=== PATIENT | female | born 1965 | race Caucasian/White ===

== ENCOUNTER → 2020-09-16 09:17 | Outpatient (BNVA) | payer OTHER, SELFPAY | PROVIDERS: PCP Family Medicine; Visit Provider Surgery | DX: K21.9 Gastro-esophageal reflux disease without esophagitis (principal); E66.9 Obesity, unspecified; Z68.34 Body mass index [BMI] 34.0-34.9, adult | CPT/HCPCS: 99212 ==

== ENCOUNTER → 2020-10-14 08:05 | Outpatient (BNVA) | payer OTHER, SELFPAY | PROVIDERS: PCP Family Medicine; Visit Provider Surgery ==

== ENCOUNTER 2023-07-18 12:35 | Outpatient (AMB) | payer OTHER, SELFPAY ==
--- NOTE | 2023-07-18 12:39 | MHC.OFFVISWM ---
Intake VS Expanded 07/18/23 12:48 BP 106/61 Blood Pressure Location Rt brachial Blood Pressure Position Sitting Pulse 96 Pulse Source Pulse Oximeter Temp 96.7 F L Temperature Source Tympanic Pulse Oximetry 96 Oxygen Delivery Method Room Air Height 5 ft 5 in Weight 206 lb 12.8 oz BMI 34.4 Body Fat % 45.1 Body Fat Mass 95.1 Fat Free Mass 113.6 Visceral Fat Rating 12.0 Body Water % 38.9 Body Water Mass 80.4 Muscle Mass/Score 107.8 Basal Metabolic Rate/Score 1,588 Intake Visit Reasons: (OV) S/P LRYGB 11/24/16 Allergies bupropion [BUPROPION] Allergy (Unknown, Verified 07/18/23 12:39) UNKNOWN ibuprofen Allergy (Unknown, Verified 07/18/23 12:39) Stomach pain NSAIDS (Non-Steroidal Anti-Inflamma [NSAIDS (NON-STEROIDAL ANTI-INFLAMMA] Allergy (Unknown, Verified 07/18/23 12:39) GI UPSET BuPROPion HCl Allergy (Unknown, Uncoded 07/18/23 12:39) Unknown Pt states no known allergy to Allergy (Unknown, Uncoded 07/18/23 12:39) Unknown Medication List - Last Reconciled 07/18/23 by TRES Acosta albuterol sulfate 90 mcg/actuation (ProAir HFA) 2 puffs inhalation Q6H PRN aripiprazole 10 mg PO BEDTIME clonidine 1 patch transdermal QWEEK duloxetine 60 mg PO DAILY esomeprazole magnesium 40 mg PO DAILY fluticasone furoate 50 mcg/actuation inhalation gabapentin 300 mg PO BEDTIME hydroxyzine HCl 25 mg PO BID PRN montelukast (Singulair) 10 mg PO BEDTIME hqkkmhubcpkv-bvi-ugfj-FA-vit K 45 mg iron- 800 mcg-120 mcg (Bariatric Multivitamins) caps PO sucralfate (Carafate) 1 g PO QIDACHS HPI HPI Comments History of Present Illness Details This?is a?57?yo female who is s/p LSG 11/24/2016. Presents for 6 year 7 month post op visit. Weight at last visit on 10/14/2020 was 201.5 pounds with a BMI of 33.5, weight today is 206.8 pounds, representing a 5.3 pound weight gain with a BMI today of 34.4.? No complaints of nausea, emesis, abdominal pain or reflux, or constipation. Pt reports she is unable to eat past 6pm or will throw up. Gets low blood sugars, no history of diabetes. 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 Present meal plan includes: not following a meal plan Exercise routine includes: none, has chronic knee pain, needs surgery [facility] Medical History (Updated 10/14/20 @ 10:46 by Morgan Weston MD) GERD (gastroesophageal reflux disease) History of herniated intervertebral disc Surgical History Obesity History of abdominoplasty History of bypass gastroenterostomy History of removal of laparoscopic gastric banding device History of knee surgery History of laparoscopic appendectomy History of bilateral tubal ligation Hx of laparoscopic gastric banding History of bilateral breast reduction surgery Family History Father Stroke Mother Dementia Alzheimer disease Cancer Sister Dementia Asthma Epilepsia Sister Lupus Sister Cancer Sister No problems noted. Sister Acute rheumatic arthritis Fibromyalgia Brother No problems noted. Brother Back problem Hypertension Acute depression Social History Alcohol intake: never Physical Exam Vital Signs: Last Vital Signs Temp 96.7 F L 07/18/23 12:48 Pulse 96 07/18/23 12:48 BP 106/61 07/18/23 12:48 Pulse Ox 96 07/18/23 12:48 Oxygen Delivery Method Room Air 07/18/23 12:48 BMI result Body Mass Index 34.4 Assessment & Plan Assessment & Plan (1) History of sleeve gastrectomy: Code(s): Z90.3 - Acquired absence of stomach [part of] (2) Obesity: Code(s): E66.9 - Obesity, unspecified Plan New meal plan: 7-9am Pure protein shake, 1 scoop in 8oz unsweetened vanilla sandra milk 11am lunch- 4 forks protein, 4 forks salad/veg 13pm Pure Protein bar 4-6pm another shake Gave exercise handout, encouraged Sit and be Fit videos Labs ordered, encouraged pt to restart stef MVI. Meal plan texted to pt and encouraged her to reach out with any questions. RTC 4-6 weeks. Patient is obese and is not considered stable at this time. I spent a total of 30 minutes reviewing/updating records, examining the patient and counseling the patient on weight management as detailed above. Orders: Orders Insulin Today Z90.3 - Acquired absence of stomach [part of] Lipid Panel Today Z90.3 - Acquired absence of stomach [part of] Complete Blood Count Auto Diff Today Z90.3 - Acquired absence of stomach [part of] Comprehensive Met. Panel Today Z90.3 - Acquired absence of stomach [part of] Vitamin A Today Z90.3 - Acquired absence of stomach [part of] C Reactive Protein Today Z90.3 - Acquired absence of stomach [part of] Ferritin Today Z90.3 - Acquired absence of stomach [part of] PTHI Today Z90.3 - Acquired absence of stomach [part of] TSH reflex Free T4 Today Z90.3 - Acquired absence of stomach [part of] Hemoglobin A1c Today Z90.3 - Acquired absence of stomach [part of] IRON PROFILE Today Z90.3 - Acquired absence of stomach [part of] Vitamin B12 and Folate Today Z90.3 - Acquired absence of stomach [part of] Zinc Today Z90.3 - Acquired absence of stomach [part of] Vitamin B1 Today Z90.3 - Acquired absence of stomach [part of] Vitamin D 25-OH Total Today Z90.3 - Acquired absence of stomach [part of] Medications: New sucralfate (Carafate) 1 g PO QIDACHS 30 tabs 3RF Coding Level of Care Code Est Pt Level 4 (35642) Diagnoses History of sleeve gastrectomy Z90.3 Obesity E66.9
[2023-07-18 12:48] VITALS: BP 106/61; PULSE 96; TEMP 35.9; O2SAT 96; BMI 34.4
== END 2023-07-18 13:30 | disposition home or self-care (01) ==
PROVIDERS: PCP Family Medicine; Visit Provider Physician Assistant Surgical
DX: E66.9 Obesity, unspecified (principal); Z68.34 Body mass index [BMI] 34.0-34.9, adult; Z90.3 Acquired absence of stomach [part of]; Z98.84 Bariatric surgery status
CPT/HCPCS: 99214

== ENCOUNTER → 2023-07-18 12:35 | Outpatient (BNVA) | payer OTHER, SELFPAY | PROVIDERS: PCP Family Medicine; Visit Provider Physician Assistant Surgical | DX: E66.9 Obesity, unspecified (principal); K21.9 Gastro-esophageal reflux disease without esophagitis; Z68.34 Body mass index [BMI] 34.0-34.9, adult; Z90.3 Acquired absence of stomach [part of] | CPT/HCPCS: 99212 ==

== ENCOUNTER 2023-10-03 12:55 | Outpatient (AMB) | payer OTHER, SELFPAY ==
--- NOTE | 2023-10-03 12:22 | MHC.OFFVISWM ---
Intake VS Expanded 10/03/23 12:38 Height 5 ft 5 in Weight 204 lb BMI 33.9 Intake Visit Reasons: VIDEO S/P LRYGB Allergies bupropion [BUPROPION] Allergy (Unknown, Verified 07/18/23 12:39) UNKNOWN ibuprofen Allergy (Unknown, Verified 07/18/23 12:39) Stomach pain NSAIDS (Non-Steroidal Anti-Inflamma [NSAIDS (NON-STEROIDAL ANTI-INFLAMMA] Allergy (Unknown, Verified 07/18/23 12:39) GI UPSET BuPROPion HCl Allergy (Unknown, Uncoded 07/18/23 12:39) Unknown Pt states no known allergy to Allergy (Unknown, Uncoded 07/18/23 12:39) Unknown Medication List - Last Reconciled 10/03/23 by TRES Acosta albuterol sulfate 90 mcg/actuation (ProAir HFA) 2 puffs inhalation Q6H PRN aripiprazole 10 mg PO BEDTIME clonidine 1 patch transdermal QWEEK duloxetine 60 mg PO DAILY esomeprazole magnesium 40 mg PO DAILY fluticasone furoate 50 mcg/actuation inhalation gabapentin 300 mg PO BEDTIME hydroxyzine HCl 25 mg PO BID PRN montelukast (Singulair) 10 mg PO BEDTIME acjeljznzdkb-vbd-dqkq-FA-vit K 45 mg iron- 800 mcg-120 mcg (Bariatric Multivitamins) caps PO sucralfate (Carafate) 1 g PO QIDACHS HPI HPI Comments History of Present Illness Details This?is a?57?yo female who is s/p RYGB 11/24/2016. Presents for 7 year post op visit. Weight at last visit on 07/18/2023 was 206.8 pounds with a BMI of 34.4, weight today is 204 pounds, representing a 2.6 pound weight loss with a BMI today of 33.9.? No complaints of nausea, emesis, abdominal pain or reflux, or constipation. Still having some vomiting with solid foods like pizza. Does fine with liquids and softer foods like yogurt and eggs. Had pelvic floor surgery recently for bladder and rectum. Present meal plan includes: 7-9am Pure protein shake, 1 scoop in 8oz unsweetened vanilla sandra milk 11am lunch- 4 forks protein, 4 forks salad/veg 1-3pm Pure Protein bar 4-6pm another shake Exercise: encouraged Sit and be Fit videos at last visit, did not get a chance to try those videos recently had an exacerbation of asthma [facility] Medical History (Updated 10/03/23 @ 12:52 by TRES Acosta) GERD (gastroesophageal reflux disease) History of herniated intervertebral disc Surgical History Obesity History of abdominoplasty History of bypass gastroenterostomy History of removal of laparoscopic gastric banding device History of knee surgery History of laparoscopic appendectomy History of bilateral tubal ligation Hx of laparoscopic gastric banding History of bilateral breast reduction surgery Family History Father Stroke Mother Dementia Alzheimer disease Cancer Sister Dementia Asthma Epilepsia Sister Lupus Sister Cancer Sister No problems noted. Sister Acute rheumatic arthritis Fibromyalgia Brother No problems noted. Brother Back problem Hypertension Acute depression Social History Alcohol intake: never Assessment & Plan Assessment & Plan (1) History of Shira-en-Y gastric bypass: Code(s): Z98.84 - Bariatric surgery status (2) Vomiting: Code(s): R11.10 - Vomiting, unspecified (3) Obesity: Code(s): E66.9 - Obesity, unspecified Plan Encouraged pt to eat solid proteins that are soft and less likely to trigger vomiting- yogurt, eggs, soft moist meats. It is possible that her vomiting is solely related to food choices and behaviors like eating too quickly or not chewing thoroughly but will order UGI to rule out underlying pathology. Reminded pt to have labs drawn. RTC once UGI completed. Patient is obese and is not considered stable at this time. I spent a total of 30 minutes reviewing/updating records, examining the patient and counseling the patient on weight management as detailed above. Orders: Orders FL upper GI w air Today R11.10 - Vomiting, unspecified, Z98.84 - Bariatric surgery status Telehealth Telehealth Location of provider rendering services: practice address Location of patient: address on file Patient Identification confirmed using: Name, : Yes Telehealth method: voice only Patient verbally consented to treatment: Yes Patient verbally consented to billing insurance company: Yes Patient informed of any privacy concerns related to visit: Yes Minutes spent on Phone/Video with Pt.: 14 Coding Level of Care Code Tele Est Pt Level 4 (18868) Diagnoses History of Shira-en-Y gastric bypass Z98.84 Vomiting R11.10 Obesity E66.9
[2023-10-03 12:38] VITALS: BMI 33.9
== END 2023-10-03 12:56 | disposition home or self-care (01) ==
LOC: HO.HBS 12:55
PROVIDERS: PCP Family Medicine; Visit Provider Physician Assistant Surgical
DX: E66.9 Obesity, unspecified (principal); Z68.33 Body mass index [BMI] 33.0-33.9, adult; Z98.84 Bariatric surgery status; R11.10 Vomiting, unspecified
CPT/HCPCS: 99214

== ENCOUNTER → 2023-10-03 12:55 | Outpatient (BNVA) | payer OTHER, SELFPAY | PROVIDERS: PCP Family Medicine; Visit Provider Physician Assistant Surgical | DX: Z98.84 Bariatric surgery status (principal); R11.10 Vomiting, unspecified; E66.9 Obesity, unspecified ==

== ENCOUNTER 2024-08-10 10:06 | Emergency (ER) | payer OTHER, SELFPAY ==
[2024-08-10] VITALS (7 sets, daily range): BP systolic 103–122; BP diastolic 51–77; PULSE 59–83; RESP 15–16; TEMP 36.2–36.6; O2SAT 96–98; BMI 40.2
--- NOTE | ~2024-08-10 | CT_ITS ---
EXAMINATION: CT HEAD WITHOUT CONTRAST CLINICAL INFORMATION: Dizziness. Anticoagulated. COMPARISON: None available. TECHNIQUE: Contiguous axial imaging was performed from the skull base to vertex without intravenous administration of contrast. This CT examination was performed using dose optimization techniques as appropriate, variously including the following: *Automated exposure control *Adjustment of mA and/or kV according to patient size (this includes techniques or standardized protocols for targeted exams where dose is matched to indication/reason for exam; i.e. extremities or head) *Use of iterative reconstruction technique DLP: 565 mGy-cm FINDINGS: No acute intracranial hemorrhage. No mass effect or midline shift. No parenchymal lesion. The adler-white differentiation is maintained. No extra-axial fluid collection. The ventricles and sulci are unremarkable. The basal cisterns are patent. The calvarium is intact. The visualized paranasal sinuses and mastoid air cells are clear. CT/CT head/brain wo IV con IMPRESSION: No acute intracranial hemorrhage or mass effect. Electronically signed by: Daren Saldaña MD 08/10/2024 03:50 PM [facility]
--- NOTE | ~2024-08-10 | XR_ITS ---
EXAMINATION: XR CHEST CLINICAL INFORMATION: [Pleuritic pain. COMPARISON: Prior chest radiographs, most recently 09/30/2018. TECHNIQUE: Frontal view of the chest was obtained. FINDINGS: No significant abnormality is noted involving the heart, lungs, mediastinum, bony thorax or soft tissues. Lung volumes are mildly diminished, there is mild elevation the right hemidiaphragm. XR/XR chest 1V IMPRESSION: Lung volumes are mildly diminished. There is no infiltrate or congestive heart failure. Electronically signed by: Balwinder Su MD 08/10/2024 02:28 PM [facility]
--- NOTE | ~2024-08-10 | CT_ITS ---
EXAMINATION: CT ANGIOGRAM OF THE CHEST WITH AND WITHOUT CONTRAST (CT PULMONARY ANGIOGRAM FOR PE) CLINICAL INFORMATION: prior PE L pleuritic chest pain, elevated ddimer COMPARISON: No pertinent prior studies are available for comparison. TECHNIQUE: Prior to contrast administration, noncontrast localization images were obtained. Subsequently, multidetector volumetric imaging was performed from the thoracic inlet to below the diaphragms following the administration of 65 mL Omnipaque 350 intravenous contrast. No contrast reaction reported. Sagittal, coronal, and MIP oblique sagittal reformatted images were obtained on the CT workstation, uploaded to PACS, and reviewed. Total exam dose-length product 398 mGy-cm FINDINGS: QUALITY OF STUDY/CONTRAST BOLUS: Satisfactory. PULMONARY ARTERIES: No central or segmental pulmonary emboli. THORACIC AORTA: No aneurysm or dissection. LUNG: Hypoinspiratory exam. Patchy opacities in the right base. PLEURA: No pleural effusion or pneumothorax. MEDIASTINUM: Normal heart size. No pericardial effusion. No hilar or mediastinal lymphadenopathy. No evidence of septal bowing or right heart strain. CHEST WALL/AXILLA: No axillary or internal mammary lymphadenopathy. OSSEOUS STRUCTURES: No acute or suspicious osseous abnormality. UPPER ABDOMEN: Unremarkable. No reflux of contrast into the hepatic veins to suggest elevated right heart pressures. CT/CT angio chest PE protocol IMPRESSION: 1. No central or segmental pulmonary emboli. 2. Patchy opacities in the right base may represent atelectasis or developing consolidation. VTE: negative. Electronically signed by: Melchor Houston MD 08/10/2024 04:11 PM [facility]
--- NOTE | 2024-08-10 10:20 | ECG_ITS ---
Test Reason : DIZZINESS Blood Pressure : / mmHG Vent. Rate : 071 BPM Atrial Rate : 071 BPM P-R Int : 174 ms QRS Dur : 132 ms QT Int : 408 ms P-R-T Axes : 004 -07 010 degrees QTc Int : 443 ms Normal sinus rhythm Right bundle branch block Minimal voltage criteria for LVH, may be normal variant ( R in aVL ) Abnormal ECG No previous ECGs available Referred By: Generic ED Physician Electronically Signed By:Herbert Perrin
[2024-08-10 10:51] LABS: Basophils Percent Auto 0.1 % (0-2); Hematocrit 41.3 % (37.0-47.0); Hemoglobin 13.3 g/dl (12.0-16.0); Imm Gran Abs Auto 0.06 X10*3/uL (0.00-0.03); Imm Gran Pct Auto 0.5 % (0.0-0.4); Lymphocytes Absolute Auto 0.3 X10*3/uL (1.2-4.9); Lymphocytes Percent Auto 2.8 % (20-40); MANUAL DIFF FLAG SCAN; Mean Corpuscular HGB Conc 32.2 g/dl (31.0-35.0); Mean Corpuscular Volume 96.3 fL (80.0-98.0); Mean Platelet Volume 10.5 fL (9.4-12.3); Monocytes Absolute Auto 0.1 X10*3/uL (0.1-1.2); Neutrophils Absolute Auto 10.8 x10*3/uL (2.0-8.3); Neutrophils Percent Auto 95.6 % (45-73); Platelet Count 279 X10*3/uL (160-400); Red Blood Count 4.29 X10*6/uL (4.20-5.50); Red Cell Distribution Width 13.2 % (11.0-16.0); SCAN SMEAR FLAG 1; White Blood Count 11.3 X10*3/uL (4.8-10.8)
[2024-08-10 11:14] LABS: SLIDE REVIEW VERIFIED
[2024-08-10 11:20] LABS: Troponin-I High Sensitivity < 2.7 ng/L (<3.5-17.0)
[2024-08-10 11:22] LABS: Anion Gap 15 (12-20); Blood Urea Nitrogen 18 mg/dL (9-16); Calcium 9.8 mg/dL (8.4-10.2); Carbon Dioxide 19 mmol/L (22-29); Chloride 107 mmol/L (96-108); Creatinine Clr Calc Pharmacy 74.7; Estimated Glomerular Filt Rate 56; Glucose Random 444 mg/dL (60-115); Potassium 3.9 mmol/L (3.3-5.1); Sodium 137 mmol/L (135-145)
[2024-08-10 12:42] LABS: Venous Blood Gas Refer to POC result
[2024-08-10 12:42] LABS: VBG Base Excess -6.8 mmol/L; VBG HCO3 19 mmol/L (22-26); VBG pCO2 38 mmHg; VBG pH 7.29 (7.32-7.43); VBG pO2 45 mmHg
[2024-08-10 13:02] LABS: Alanine Aminotransferase 35 U/L (0-31); Albumin Level 3.9 g/dL (3.5-5.0); Alkaline Phosphatase 95 U/L (39-117); Aspartate Amino Transferase 23 U/L (5-31); Bilirubin Direct < 0.2 mg/dL (0.0-0.5); Bilirubin Total 0.2 mg/dL (0.0-1.0); Total Protein 7.5 g/dL (6.5-8.0)
[2024-08-10 13:11] LABS: Beta-Hydroxybutyrate 0.08 mmol/L (0.02-0.27)
--- NOTE | 2024-08-10 13:51 | ED_ITS ---
HPI - Dizziness General Chief Complaint: Dizziness Stated Complaint: dizzy, lightheaded, hurts to breath Time Seen by Provider: 08/10/24 13:46 Source: patient Mode of arrival: ambulatory Limitations: no limitations History of Present Illness ED Provider: CHARLES HPI Narrative: 58 yo female with PMH of obesity, GERD, sleeve gastrectomy, PE on eliquis, notes since her Mom in January she has gained all of her weight back. Patient notes 3 days of headaches and feeling dizzy worse with movements. She also feels L rib pain when she breathes but has not missed any eliquis. She denies head trauma or URI symptoms. Since her mom she always had dry mouth. She denies any numbness, weakness, vision changes. She states this has never happened. MD elicited complaint: dizziness Onset (ago): day(s) (3) Timing: gradual onset and intermittent Severity: mild Description: lightheadedness Context: change in body position History of similar symptoms: No Exacerbating factors: movement/ambulation and change in body position Relieving factors: remaining still Associated symptoms: nausea and other (dizziness) Related Data Home Medications ?Medication ?Instructions ?Recorded ?Confirmed albuterol sulfate 90 mcg/actuation 2 puff inhalation Q6H PRN 09/16/20 10/03/23 aerosol inhaler (ProAir HFA) aripiprazole 10 mg tablet 10 mg PO BEDTIME 09/16/20 10/03/23 clonidine 0.1 mg/24 hr weekly 1 patch transdermal QWEEK 09/16/20 10/03/23 transdermal patch duloxetine 60 mg capsule,delayed 60 mg PO DAILY 09/16/20 10/03/23 release fluticasone furoate 50 inhalation 09/16/20 10/03/23 mcg/actuation blister powder for inhalation gabapentin 300 mg capsule 300 mg PO BEDTIME 09/16/20 10/03/23 hydroxyzine HCl 25 mg tablet 25 mg PO BID PRN 09/16/20 10/03/23 montelukast 10 mg tablet 10 mg PO BEDTIME 09/16/20 10/03/23 (Singulair) [id number]-[id number] 45 mg-folic cap PO 09/16/20 10/03/23 acid 800 mcg-vit K 120 mcg capsule (Bariatric Multivitamins) esomeprazole magnesium 40 mg 40 mg PO DAILY 07/18/23 10/03/23 capsule,delayed release Previous Rx's ?Medication ?Instructions ?Recorded sucralfate 1 gram tablet (Carafate) 1 g PO QIDACHS #30 tabs 07/18/23 azithromycin 250 mg tablet See Rx Instructions PO .COMPLEX #6 08/10/24 tabs cefuroxime axetil 500 mg tablet 500 mg PO BID 7 days #14 tabs 08/10/24 Allergies Allergy/AdvReac Type Severity Reaction Status Date / Time bupropion [BUPROPION] Allergy Unknown UNKNOWN Verified 08/10/24 10:18 ibuprofen Allergy Unknown Stomach Verified 08/10/24 10:18 pain NSAIDS (Non-Steroidal Allergy Unknown GI UPSET Verified 08/10/24 10:18 Anti-Inflamma [NSAIDS (NON-STEROIDAL ANTI-INFLAMMA] BuPROPion HCl Allergy Unknown Unknown Uncoded 07/18/23 12:39 Review of Systems 2 Review of Systems: Constitutional : No Fever, No Chills, No Fatigue ENT/Mouth : No sore throat, No Rhinorrhea Eyes: No Eye Pain, No Swelling, No Redness Cardiovascular : No Chest Pain, No SOB, No Dyspnea on Exertion, pos flank pain Respiratory : No Cough, No Sputum Gastrointestinal : No Nausea, No Vomiting, No Diarrhea, No abdominal Pain Genitourinary : No Dysuria, No Urinary Frequency, No Hematuria, Musculoskeletal : No joint pain, No Myalgias, No Joint Swelling Skin : No Skin Lesions, No rash Neuro : No Weakness, No Numbness, pos Dizziness, positive Headache Psych : No Anxiety/Panic, No Depression Heme/Lymph: No Bruising, No Bleeding,No Lymphadenopathy Endocrine : No Polyuria, No Polydipsia All other systems reviewed and are negative [facility] Past Medical History Attestation statement: The following information was validated with the patient. Source: old records reviewed Medical History GERD (gastroesophageal reflux disease) History of herniated intervertebral disc Surgical History Obesity History of abdominoplasty History of bypass gastroenterostomy History of removal of laparoscopic gastric banding device History of knee surgery History of laparoscopic appendectomy History of bilateral tubal ligation Hx of laparoscopic gastric banding History of bilateral breast reduction surgery Family History Family History Father Stroke Mother Dementia Alzheimer disease Cancer Sister Dementia Asthma Epilepsia Sister Lupus Sister Cancer Sister No problems noted. Sister Acute rheumatic arthritis Fibromyalgia Brother No problems noted. Brother Back problem Hypertension Acute depression Social History Social History (Updated 08/10/24 @ 13:56 by Kaleigh Do DO) Alcohol intake: never Patient Tobacco Use Status: Never used Tobacco Smoked in Last 30 Days: No Use of substances other than those prescribed or required for medical reasons: No Advance Directives: No Advance Directives Information Provided: No Physical Exam 2 Vital Signs: Vital Signs: Last Vital Signs Temp 97.8 F 08/10/24 16:25 Pulse 60 08/10/24 16:25 Resp 15 08/10/24 16:25 BP 120/77 08/10/24 16:25 Pulse Ox 96 08/10/24 16:25 O2 Del Method Room Air 08/10/24 16:25 BMI result Body Mass Index 40.2 Appearance: Alert. Oriented X3. No acute distress. Eyes: Pupils equal, round and reactive to light. ENT: Pharynx normal. Neck: Normal inspection. Neck supple. CVS: Normal heart rate and rhythm. Pulses normal. Respiratory: No respiratory distress. Breath sounds normal. Abdomen: Soft and nontender. Skin: Skin warm and dry. Normal skin color. Normal skin turgor. Extremities: No lower extremity edema. No calf ttp Neuro: Oriented X 3. No motor deficit. No sensory deficit. no drift, no focal deficits, shaky when standing Course Course Course Narrative: not toxic appears well watching fast and furious and eating Reevaluation(s) Reevaluation #1: pH is normal HCO3 mildly low suspect dehydration no resp component possibly related to her prior sleeve at this time VS stable, eating and drinking negative gap and DKA, renal function normal Medications Administered Discontinued Medications Generic Name Dose Route Start Last Admin Trade Name Freq PRN Reason Stop Dose Admin Hydrocodone Bitart/Acetaminophen 1 tab 08/10/24 14:54 08/10/24 14:56 Hydrocodone Bit/Acetam 5/325 Tablet PO 08/10/24 14:55 1 tab ONCE ONE Administration Sodium Chloride 1,000 mls @ 999 mls/hr 08/10/24 14:03 08/10/24 14:19 Ns IV 08/10/24 15:03 999 mls/hr .Q1H1M ONE Administration Insulin Human Regular 5 unit 08/10/24 14:03 08/10/24 14:23 Insulin Regular, Human 100 Unit/Ml 10 Ml Vial IVPUSH 08/10/24 14:04 5 unit ONCE ONE Administration Iohexol 100 ml 08/10/24 15:30 08/10/24 15:30 Iohexol 350 Mg/Ml 100 Ml Infus..Btl IV 08/10/24 15:31 65 ml ONCE ONE Administration Meclizine HCl 25 mg 08/10/24 14:03 08/10/24 14:25 Meclizine Hcl 25 Mg Tablet PO 08/10/24 14:04 25 mg ONCE ONE Administration Medical Decision Making Medical Decision Making [facility] Narrative: 58 yo female with PMH of obesity, GERD, sleeve gastrectomy, PE on eliquis here with c/o headaches and dizziness also L pleuritic chest pain denies missing any eliquis. She has new hyperglycemia without prior - did gain back all of the weight she lost. She has mild metabolic acidosis suspect this is due to dehydration - at this time will obtain CT head for ICH has no focal deficits, repeat labs, ddimer, EKG possible anemia, dehydration, ICH, VTE Differential Diagnosis Differential Diagnoses: The differential diagnosis associated with the presentation includes anemia, dehydration, ICH, VTE Admission/Observation Consideration of admission/observation: Escalation of care including admission/observation considered on phone no issues some drop in BP with orthostatics no focal deficits she has dizziness but already on eliquis and no bleed - 3 weeks out no concern for falls 3 days of symptoms can follow up with PCP for further workup no further medications to add if she has stroke CTA no PE but small area of opacity will start on antibiotic Lab Data [facility] Lab Attestation statement: I reviewed the patient's lab results. 08/10/24 10:31 08/10/24 10:31 Labs: Lab Results 08/10/24 08/10/24 08/10/24 Range/Units 10:31 12:33 12:37 WBC 11.3 H (4.8-10.8) X10*3/uL RBC 4.29 (4.20-5.50) X10*6/uL Hgb 13.3 (12.0-16.0) g/dl Hct 41.3 (37.0-47.0) % MCV 96.3 (80.0-98.0) fL MCH 31.0 (27.0-33.0) pg MCHC 32.2 (31.0-35.0) g/dl RDW 13.2 (11.0-16.0) % Plt Count 279 (160-400) X10*3/uL MPV 10.5 (9.4-12.3) fL Immature Gran % (Auto) 0.5 H (0.0-0.4) % Neut % (Auto) 95.6 H (45-73) % Lymph % (Auto) 2.8 L (20-40) % [place] % (Auto) 1.0 L (2-11) % Eos % (Auto) 0.0 (0-4) % Baso % (Auto) 0.1 (0-2) % Lymph # (Auto) 0.3 L (1.2-4.9) X10*3/uL [place] # (Auto) 0.1 (0.1-1.2) X10*3/uL Eos # (Auto) 0.0 (0.0-0.4) X10*3/uL Baso # (Auto) 0.0 (0.0-0.2) X10*3/uL Abs Immat Gran (auto) 0.06 H (0.00-0.03) X10*3/uL Absolute Neuts (auto) 10.8 H (2.0-8.3) x10*3/uL Absolute Nucleated RBC 0.000 (0.0-0.012) X10*3/uL Nucleated RBC % (auto) 0.0 (0.0-0.2) /100WBC Smear Tech's Comments VERIFIED D-Dimer High Sensitivty NG/ML VBG pH 7.29 L (7.32-7.43) VBG pCO2 38 mmHg VBG pO2 45 mmHg VBG HCO3 19 L (22-26) mmol/L VBG O2 Saturation 67.0 % VBG Base Excess -6.8 mmol/L Sodium 137 (135-145) mmol/L Potassium 3.9 (3.3-5.1) mmol/L Chloride 107 (96-108) mmol/L Carbon Dioxide 19 L (22-29) mmol/L Anion Gap 15 (12-20) BUN 18 H (9-16) mg/dL Creatinine 1.01 (0.5-1.4) mg/dL Estim Creat Clear Calc 74.7 Estimated GFR 56 POC Glucose (60-115) mg/dL Random Glucose 444 H* (60-115) mg/dL Calcium 9.8 (8.4-10.2) mg/dL Total Bilirubin 0.2 (0.0-1.0) mg/dL Direct Bilirubin < 0.2 (0.0-0.5) mg/dL AST 23 (5-31) U/L ALT 35 H (0-31) U/L Alkaline Phosphatase 95 (39-117) U/L Troponin I High Sens < 2.7 (<3.5-17.0) ng/L Total Protein 7.5 (6.5-8.0) g/dL Albumin 3.9 (3.5-5.0) g/dL Beta-Hydroxybutyrate 0.08 (0.02-0.27) mmol/L 08/10/24 08/10/24 08/10/24 Range/Units 14:23 15:40 16:43 WBC (4.8-10.8) X10*3/uL RBC (4.20-5.50) X10*6/uL Hgb (12.0-16.0) g/dl Hct (37.0-47.0) % MCV (80.0-98.0) fL MCH (27.0-33.0) pg MCHC (31.0-35.0) g/dl RDW (11.0-16.0) % Plt Count (160-400) X10*3/uL MPV (9.4-12.3) fL Immature Gran % (Auto) (0.0-0.4) % Neut % (Auto) (45-73) % Lymph % (Auto) (20-40) % [place] % (Auto) (2-11) % Eos % (Auto) (0-4) % Baso % (Auto) (0-2) % Lymph # (Auto) (1.2-4.9) X10*3/uL [place] # (Auto) (0.1-1.2) X10*3/uL Eos # (Auto) (0.0-0.4) X10*3/uL Baso # (Auto) (0.0-0.2) X10*3/uL Abs Immat Gran (auto) (0.00-0.03) X10*3/uL Absolute Neuts (auto) (2.0-8.3) x10*3/uL Absolute Nucleated RBC (0.0-0.012) X10*3/uL Nucleated RBC % (auto) (0.0-0.2) /100WBC Smear Tech's Comments D-Dimer High Sensitivty 396 NG/ML VBG pH 7.35 (7.32-7.43) VBG pCO2 31 mmHg VBG pO2 56 mmHg VBG HCO3 17 L (22-26) mmol/L VBG O2 Saturation 85.0 % VBG Base Excess -6.4 mmol/L Sodium (135-145) mmol/L Potassium (3.3-5.1) mmol/L Chloride (96-108) mmol/L Carbon Dioxide (22-29) mmol/L Anion Gap (12-20) BUN (9-16) mg/dL Creatinine (0.5-1.4) mg/dL Estim Creat Clear Calc Estimated GFR POC Glucose 112 (60-115) mg/dL Random Glucose (60-115) mg/dL Calcium (8.4-10.2) mg/dL Total Bilirubin (0.0-1.0) mg/dL Direct Bilirubin (0.0-0.5) mg/dL AST (5-31) U/L ALT (0-31) U/L Alkaline Phosphatase (39-117) U/L Troponin I High Sens (<3.5-17.0) ng/L Total Protein (6.5-8.0) g/dL Albumin (3.5-5.0) g/dL Beta-Hydroxybutyrate (0.02-0.27) mmol/L 08/10/24 Range/Units 16:44 WBC (4.8-10.8) X10*3/uL RBC (4.20-5.50) X10*6/uL Hgb (12.0-16.0) g/dl Hct (37.0-47.0) % MCV (80.0-98.0) fL MCH (27.0-33.0) pg MCHC (31.0-35.0) g/dl RDW (11.0-16.0) % Plt Count (160-400) X10*3/uL MPV (9.4-12.3) fL Immature Gran % (Auto) (0.0-0.4) % Neut % (Auto) (45-73) % Lymph % (Auto) (20-40) % [place] % (Auto) (2-11) % Eos % (Auto) (0-4) % Baso % (Auto) (0-2) % Lymph # (Auto) (1.2-4.9) X10*3/uL [place] # (Auto) (0.1-1.2) X10*3/uL Eos # (Auto) (0.0-0.4) X10*3/uL Baso # (Auto) (0.0-0.2) X10*3/uL Abs Immat Gran (auto) (0.00-0.03) X10*3/uL Absolute Neuts (auto) (2.0-8.3) x10*3/uL Absolute Nucleated RBC (0.0-0.012) X10*3/uL Nucleated RBC % (auto) (0.0-0.2) /100WBC Smear Tech's Comments D-Dimer High Sensitivty NG/ML VBG pH (7.32-7.43) VBG pCO2 mmHg VBG pO2 mmHg VBG HCO3 (22-26) mmol/L VBG O2 Saturation % VBG Base Excess mmol/L Sodium (135-145) mmol/L Potassium (3.3-5.1) mmol/L Chloride (96-108) mmol/L Carbon Dioxide (22-29) mmol/L Anion Gap (12-20) BUN (9-16) mg/dL Creatinine (0.5-1.4) mg/dL Estim Creat Clear Calc Estimated GFR POC Glucose 137 H (60-115) mg/dL Random Glucose (60-115) mg/dL Calcium (8.4-10.2) mg/dL Total Bilirubin (0.0-1.0) mg/dL Direct Bilirubin (0.0-0.5) mg/dL AST (5-31) U/L ALT (0-31) U/L Alkaline Phosphatase (39-117) U/L Troponin I High Sens (<3.5-17.0) ng/L Total Protein (6.5-8.0) g/dL Albumin (3.5-5.0) g/dL Beta-Hydroxybutyrate (0.02-0.27) mmol/L Independent Interpretation I performed an independent interpretation of an: EKG, Plain X-Ray and CT Scan (negative, R base opacity) Interpretation: Rate: 71 Rhythm: NSR [place]: left Normal P waves. Normal GLORIA. RBBB. ST T wave : inverted t waves V1 and III no ELIGIO qTC: 443 prior studies: hx of RBBB on stress 2017 The study has been interpreted contemporaneously by me. . Radiology Impression Discussion of test interpretation with radiology: I have reviewed the radiologist's reading. External Record Review External record reviewed: Outpatient record Prescription Management I considered prescription management with: Antibiotic Discharge Plan Discharge Clinical Impression: Dizziness, Acute hyperglycemia Pneumonia Qualifiers: Pneumonia type: due to unspecified organism Laterality: right Lung location: l ower lobe of lung Qualified Code(s): J18.9 - Pneumonia, unspecified organism Patient Disposition: Home, Self-Care Instructions: Community Acquired Pneumonia (ED), Dizziness (ED), Diabetic Hyperglycemia (ED) Additional Instructions: finish antibiotics return for any worsening symptoms - numbness, weakness, vomiting unable to eat or drink talk to your doctor Monday about your blood sugars - given response to insulin will hold off therapy at this time On a cephalosporin?antibiotic, softer bowel movements are to be expected. Call your provider if you move your bowels more than 4 times a day, your bowel movements are almost all liquid, or you get a rash.?? On azithromycin, call your provider if you develop new ringing in your ears, new problems hearing, dizziness, palpitations, abdominal pain, nausea, or diarrhea. Prescriptions: New cefuroxime axetil 500 mg tablet 500 mg PO BID 7 Days Qty: 14 0RF azithromycin 250 mg tablet See Rx Instructions PO .COMPLEX Qty: 6 0RF Rx Instructions: For 250 mg dose pack: take 500 mg today (day 1), then 250 mg for 4 days (days 2-5) No Action Bariatric Multivitamins 45 mg iron- 800 mcg-120 mcg capsule PO albuterol sulfate [ProAir HFA] 90 mcg/actuation HFA aerosol inhaler 2 puff inhalation Q6H PRN duloxetine 60 mg capsule,delayed release(DR/EC) 60 mg PO DAILY fluticasone furoate 50 mcg/actuation blister with device inhalation montelukast [Singulair] 10 mg tablet 10 mg PO BEDTIME clonidine 0.1 mg/24 hr patch weekly 1 patch transdermal QWEEK gabapentin 300 mg capsule 300 mg PO BEDTIME hydroxyzine HCl 25 mg tablet 25 mg PO BID PRN aripiprazole 10 mg tablet 10 mg PO BEDTIME sucralfate [Carafate] 1 gram tablet 1 g PO QIDACHS Qty: 30 3RF esomeprazole magnesium 40 mg capsule,delayed release(DR/EC) 40 mg PO DAILY Print Language: Yakut
[2024-08-10] MEDS: 0.9 % Sodium Chloride 1,000 ML 999 ML IV (14:19)
[2024-08-10] MEDS: Insulin Regular, Human 100 UNIT/ML 10 ML VIAL IVPUSH (14:23)
[2024-08-10] MEDS: Meclizine HCl 25 MG TABLET PO (14:25)
[2024-08-10 14:35] LABS: D Dimer High Sensitivity 396 NG/ML
[2024-08-10] MEDS: HYDROcodone Bit/Acetam 5/325 TABLET 1 TAB PO (14:56)
[2024-08-10] MEDS: iohexoL 350 MG/ML 100 ML INFUS..BTL IV (15:30)
--- NOTE | 2024-08-10 15:44 | PC.NURSE ---
Pt comes to ED today for c/o dizziness and generalized pain. Pt reports dizziness is worse with movement and subsides with rest. VSS, A&Ox3, afebrile 20g to RAC Pt calls this RN to bedside to report her BS monitor reports a BS of 64. RE-check POC performed with hospital equipment showing a BS 112. Pt provided with tuna sandwich and crackers. Will re-check BS
[2024-08-10 15:59] LABS: Glucose, Whole Blood 112 mg/dL (60-115)
[2024-08-10 16:48] LABS: Glucose, Whole Blood 137 mg/dL (60-115)
[2024-08-10 17:03] LABS: VBG Base Excess -6.4 mmol/L; VBG HCO3 17 mmol/L (22-26); VBG pCO2 31 mmHg; VBG pH 7.35 (7.32-7.43); VBG pO2 56 mmHg
[2024-08-10 17:04] LABS: Venous Blood Gas Refer to POC result
--- NOTE | 2024-08-10 17:17 | PC.NURSE ---
Pt requires regular reminder to keep R arm straight for IVF to infuse. Per Dr. Do, once fluids are fully infused, Pt can be d/c'd. Pt positioned to allow for fluids to flow well. Will d/c once completed.
[2024-08-10] MEDS: cefuroxime axetiL 500 MG TABLET PO (17:22)
== END 2024-08-10 17:47 | disposition home or self-care (01) ==
PROVIDERS: Physician Assistant Medical; Emergency Provider Emergency Medicine; PCP Family Medicine
DX: J18.9 Pneumonia, unspecified organism (principal); R42 Dizziness and giddiness; R51.9 Headache, unspecified; R73.9 Hyperglycemia, unspecified; Z86.711 Personal history of pulmonary embolism; Z79.01 Long term (current) use of anticoagulants; Z79.899 Other long term (current) drug therapy
CPT/HCPCS: 36415; 70450; 71045; 71275; 80048; 80076; 82010; 82803; 82947; 84484; 85025; 85379; 93005; 99285; Q9967

== ENCOUNTER → 2024-08-10 10:20 | Outpatient (BNV) | payer OTHER, SELFPAY | PROVIDERS: Emergency Provider Emergency Medicine; PCP Family Medicine; Visit Provider Internal Medicine Cardiovascular Disease | DX: R94.31 Abnormal electrocardiogram [ECG] [EKG] (principal) | CPT/HCPCS: 93010 ==

== ENCOUNTER 2024-09-16 11:24 | Outpatient (AMB) | payer OTHER, SELFPAY ==
--- NOTE | 2024-09-16 11:26 | MHC.OFFVISWM ---
VS Expanded 09/16/24 11:38 BP 124/71 Blood Pressure Location Rt brachial Blood Pressure Position Sitting Pulse 76 Pulse Source Pulse Oximeter Temp 97.6 F Temperature Source Temporal Artery Scan Pulse Oximetry 98 Oxygen Delivery Method Room Air Height 5 ft 5 in Weight 239 lb 6.4 oz BMI 39.8 Body Fat % 50.2 Body Fat Mass 120.2 Fat Free Mass 119.0 Visceral Fat Rating 16.0 Body Water % 35.3 Body Water Mass 84.4 Muscle Mass/Score 113.0 Basal Metabolic Rate/Score 1,700 Intake Visit Reasons: (OV) S/P LRYGB 11/24/16 Water Meter Mechanic Required: Yes Allergies bupropion [BUPROPION] Allergy (Unknown, Verified 09/16/24 11:30) UNKNOWN ibuprofen Allergy (Unknown, Verified 09/16/24 11:30) Stomach pain NSAIDS (Non-Steroidal Anti-Inflamma [NSAIDS (NON-STEROIDAL ANTI-INFLAMMA] Allergy (Unknown, Verified 09/16/24 11:30) GI UPSET BuPROPion HCl Allergy (Unknown, Uncoded 07/18/23 12:39) Unknown Medication List - Last Reconciled 09/16/24 by TRES Acosta albuterol sulfate 90 mcg/actuation (ProAir HFA) 2 puffs inhalation Q6H PRN aripiprazole 10 mg PO BEDTIME azithromycin For 250 mg dose pack: take 500 mg today (day 1), then 250 mg for 4 days (days 2-5) cefuroxime axetil 500 mg PO BID 7 days clonidine 1 patch transdermal QWEEK duloxetine 60 mg PO DAILY esomeprazole magnesium 40 mg PO DAILY fluticasone furoate 50 mcg/actuation inhalation gabapentin 300 mg PO BEDTIME hydroxyzine HCl 25 mg PO BID PRN montelukast (Singulair) 10 mg PO BEDTIME uichcypfwwkj-ltm-mjxo-FA-vit K 45 mg iron- 800 mcg-120 mcg (Bariatric Multivitamins) caps PO sucralfate (Carafate) 1 g PO QIDACHS HPI Comments Details: This is a 58 yo female who is s/p RYGB 11/24/2016. Weight gain of 35.4lbs since last OV in September 2023. Pt recognizes she has gained a lot of weight since last visit. Up to 5lbs per week. Her mother in January and she has been having a difficult time with depression/anxiety. Not eating but laying down. Continues to have burning in esophagus, vomiting a lot. UGI had been ordered at last visit but pt unable to make the appointment. Will vomit every afternoon when I try to eat heavier foods . Does not vomit with liquids or softer foods like yogurt, will vomit with rice. Has tried to stop eating rice but continues to vomit. Takes PPI and carafate. Present meal plan includes: 7-9am Pure protein shake, 1 scoop in 8oz unsweetened vanilla sandra milk 11am lunch- 4 forks protein, 4 forks salad/veg 1-3pm Pure Protein bar 4-6pm another shake Exercise: encouraged Sit and be Fit videos at last visit, did not get a chance to try those videos recently had an exacerbation of asthma [facility] Medical History GERD (gastroesophageal reflux disease) History of herniated intervertebral disc Surgical History Obesity History of abdominoplasty History of bypass gastroenterostomy History of removal of laparoscopic gastric banding device History of knee surgery History of laparoscopic appendectomy History of bilateral tubal ligation Hx of laparoscopic gastric banding History of bilateral breast reduction surgery Family History Father Stroke Mother Dementia Alzheimer disease Cancer Sister Dementia Asthma Epilepsia Sister Lupus Sister Cancer Sister No problems noted. Sister Acute rheumatic arthritis Fibromyalgia Brother No problems noted. Brother Back problem Hypertension Acute depression Social History Alcohol intake: never Patient Tobacco Use Status: Never used Tobacco Assessment & Plan Assessment & Plan (1) History of Shira-en-Y gastric bypass: Code(s): Z98.84 - Bariatric surgery status Category: Surgical (2) Obesity: Code(s): E66.9 - Obesity, unspecified Category: Surgical Plan Gave option of RightBMI virgil. Pt requested a meal plan be created by me. 5-7am Fairlife shake 9-11am Pure protein bar 1-3pm Fairlife shake 4pm meal- 4f/4f Discussed the importance of adherence to meal plan, not skipping proteins, do not drink coffee on empty stomach, avoid foods that cause vomiting like rice. Exercise in whatever method is comfortable and pain free If pt's vomiting continues despite weight loss and adherence to meal plan, will reconsider UGI. Labs ordered. RTC 3 months, texted pt and encouraged her to reach out to me between visits with any concerns. I spent a total of 30 minutes reviewing/updating records, examining the patient and counseling the patient on weight management as detailed above. Orders: Orders IRON PROFILE Today Z98.84 - Bariatric surgery status Vitamin B12 and Folate Today Z98.84 - Bariatric surgery status Zinc Today Z98.84 - Bariatric surgery status C Reactive Protein Today Z98.84 - Bariatric surgery status Vitamin D 25-OH Total Today Z98.84 - Bariatric surgery status Insulin Today Z98.84 - Bariatric surgery status Hemoglobin A1c Today Z98.84 - Bariatric surgery status Complete Blood Count Auto Diff Today Z98.84 - Bariatric surgery status Lipid Panel Today Z98.84 - Bariatric surgery status Comprehensive Met. Panel Today Z98.84 - Bariatric surgery status Vitamin B1 Today Z98.84 - Bariatric surgery status Vitamin A Today Z98.84 - Bariatric surgery status TSH reflex Free T4 Today Z98.84 - Bariatric surgery status Ferritin Today Z98.84 - Bariatric surgery status Medications: New esomeprazole magnesium 40 mg PO DAILY 90 caps 3RF
[2024-09-16 11:38] VITALS: BP 124/71; PULSE 76; TEMP 36.4; O2SAT 98; BMI 39.8
== END 2024-09-16 12:21 | disposition home or self-care (01) ==
PROVIDERS: PCP Family Medicine; Visit Provider Physician Assistant Surgical
DX: E66.812 Obesity, class 2 (principal); Z68.39 Body mass index [BMI] 39.0-39.9, adult; Z98.84 Bariatric surgery status
CPT/HCPCS: 99214; G2211

== ENCOUNTER → 2024-09-16 11:24 | Outpatient (BNVA) | payer OTHER, SELFPAY | PROVIDERS: PCP Family Medicine; Visit Provider Physician Assistant Surgical | DX: Z98.84 Bariatric surgery status (principal) | CPT/HCPCS: 99212 ==

== ENCOUNTER 2024-10-22 09:08 | Outpatient (REF) | payer OTHER, SELFPAY ==
[2024-10-22 09:32] LABS: MANUAL DIFF FLAG NO
--- OUTSIDE RECORDS SUMMARY | 2024-10-22 09:35 | XMS_ITS | Clinical Summary ---
Author Organization [facility] Address [address] [place] [address] Care Team Providers Care Food Preservation Scientist Name Role Phone Unavailable Primary Care Provider Unavailabl e Source Comments PLEASE NOTE, if this patient is a minor, it may be UNLAWFUL to discuss sensitive information that is contained in these records (such as FAMILY PLANNING, MENTAL HEALTH or SUBSTANCE ABUSE) with the minor patient's parent or other person without the patient's specific authorization.[facility] Medications amoxicillin (AMOXIL) 500 mg capsuleIndicati ons:Caries of pulp Take 1 Capsule by mouth 3 (three) times daily 21 Capsule 04/11/2024 Active acetaminophen (TYLENOL) 500 mg tabletIndicatio ns:Caries of pulp Take 1 Tablet by mouth every 6 (six) hours as needed for pain 20 Tablet 04/11/2024 Active Active Problems No known active problems Encounters Date Type Department Care Team Description 09/13/2024 3:40 PM EST Office Visit [facility] [address] [place] [phone] Leonel Sepulveda DDS Chronic apical periodontitis (Primary Dx); Caries 09/13/2024 Travel 09/11/2024 9:40 AM EST Office Visit [facility] [address] [place] [phone] Camilla Verdin Encounter for dental examination (Primary Dx); Caries; 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 09/11/2024 Travel from Last 3 Months Social History Tobacco Use Types Packs/Day Years Used Date Smoking Tobacco: Never Smokeless Tobacco: Never Tobacco Cessation:Counseling Given: Not Answered Social Connections Answer Date Recorded Connectedness 0 06/13/2024 Financial Resource Strain Answer Date R ecorded Financial Resource Strain 0 2022 Stress Answer Date Recorded Stress 0 02/23/2023 Physical Activity Answer Date Recorded Physical Activity 0 02/23/2023 Food Insecurity Answer Date Recorded Food 0 06/20/2024 Transportation Needs Answer Date Record ed Transportation 0 02/23/2023 Housing Stability Answer Date Recorded Housing 0 02/23/2023 Safety and Environment Answer Date Thony rded Safety 0 02/23/2023 Utilities Answer Date Recorded Utilities 0 02/23/2023 Employment Answer Date Recorded Stress 0 06/13/2024 Comments Unknown Sex and Gender Information Value Date Recorded Sex Assigned at Not on file Legal Sex Female 9:01 AM PDT Gender Identity Not on file Sexual Orientation Not on file Last Filed Vital Signs Vital Sign Reading Time Taken Comments Blood Pressure 101/66 09/13/2024 3:27 PM EST Pulse 64 09/13/2024 3:27 PM EST Temperature - - Respiratory Rate - - Oxygen Saturation - - Inhaled Oxygen Concentration - - Weight - - Height - - Body Mass Index - - Plan of Treatment Upcoming Encounters Date Type Department Care Team (Late st Contact Info) Description 10/24/2024 10:00 AM EST Office Visit [facility] [address] [place] [phone] Freddie Katherine, DDS [address] [place] [address] Health Maintenance Due Date Last Done Comments Dental Prophy 1965 Diabetes Screening 1965 HPV Screening 1965 Hepatitis C Screening 1965 Lipid Screening 1965 Pap + HPV 1965 HIV Screening 1980 Imm-Hepatitis B (1 of 3 - 19 + 3-dose series) 1984 Cervical Cancer Screening 1986 Pap Smear 1986 Breast Cancer Screening (Mammogram) 2005 CT Colonography 2010 Colonoscopy 2010 Colorectal Cancer Screening 2010 FIT/gFOBT 2010 Fecal DNA 2010 Flexible Sigmoidoscopy 2010 Imm-Zoster, Recombinant (1 of 2) 12/10/2015 [id number] ( season) 2024 10/18/2023, 09/01/2021, 01/15/2021, Additional history exists Alcohol and Drug Screen 09/25/2024 Depression Annual Screen 09/25/2024 Dental BW 09/13/2025 09/11/2024 Dental Examination 09/13/2025 09/11/2024 Dental Perio Charting 09/13/2025 09/11/2024 Hypertension Screening (#1) 09/13/2025 Tobacco Screening 09/13/2025 09/13/2024 Dental FMX/Pano 09/13/2029 09/11/2024 Imm-DTaP/Tdap/Td (3 - Td or Tdap) 10/20/2032 023, 12/12/2012 Imm-Influenza Completed 07/24/2024, 09/26, 10/20/2022, Additional history exists Cervical Ablation/Cold-Knife Conization Discontinued Cervical Cryotherapy Discontinued Colposcopy Discontinued Endometrial Biopsy Discontinued Excision/Leep Discontinued HPV Genotyping Discontinued Vaginal Pap Discontinued Vulvoscopy Discontinued Procedures Procedure Name Priority Date/Time Associated Diagnosis Comments 31 EXTRACTION ERU TOOTH RQR REMV BONE &/SECTN TOOTH Routine 09/13/2024 3:40 PM EST Caries Chronic apical periodontitis CASE PRESENTATION SUBS DTL & EXTENSIVE TX PLN Routine 09/13/2024 3:40 PM EST Chronic apical periodontitis DENTAL CASE MANAGEMENT - MOTIVATIONAL INTV Routine 09/11/2024 9:40 AM EST Caries Encounter for dental examination INTRAORAL - COMP SERIES OF RADIOGRAPHIC IMAGES Routine 09/11/2024 9:40 AM EST Caries Encounter for dental examination COMP ORAL EVALUATION - NEW/ESTABLISHED PATIENT Routine 09/11/2024 9:40 AM EST Caries Encounter for dental examination CARIES RISK ASSESSMENT & DOC FINDING HIGH RISK Routine 09/11/2024 9:40 AM EST Caries Encounter for dental examination ORAL HYGIENE INSTRUCTIONS Routine 09/11/2024 9:40 AM EST Caries Encounter for dental examination ORAL CANCER SCREENING Routine 09/11/2024 9:40 AM EST Caries Encounter for dental examination CASE PRESENTATION SUBS DTL & EXTENSIVE TX PLN Routine 09/11/2024 9:40 AM EST Encounter for dental examination 5,8,9,10,14 MAXILLARY PARTIAL DENTURE - RESIN BASE Routine 09/11/2024 12:00 AM EST 12 O AMALGAM - WISDOM (NON BILLABLE) Routine 09/11/2024 12:00 AM EST 4 O AMALGAM - WISDOM (NON BILLABLE) Routine 09/11/2024 12:00 AM EST 31 O COMPOSITE - WISDOM (NON BILLABLE) Routine 09/11/2024 12:00 AM EST 32 O AMALGAM - WISDOM (NON BILLABLE) Routine 09/11/2024 12:00 AM EST 2 O AMALGAM - WISDOM (NON BILLABLE) Routine 09/11/2024 12:00 AM EST 1 O AMALGAM - WISDOM (NON BILLABLE) Routine 09/11/2024 12:00 AM EST from Last 3 Months Insurance [facility] [place] [address] [facility]
--- OUTSIDE RECORDS SUMMARY | 2024-10-22 09:35 | XMS_ITS | Encounter Summary ---
Author Organization [facility] Address [address] [place] [address] Care Team Providers Care Auto Headlight Mechanic Name Role Phone Rick Hatch MD Primary Care Provider Encounter Details Date Type Department Care Team (Late Contact Info) Description 07/05/2024 4:24 PM EDT Hospital Encounter TH HISTORIC ENCOUNTERS [facility] CONVERSION ONLY Shazia Iverson MD [address] [place] [address] Social History Tobacco Use Types Packs/Day Years Used Date Smoking Tobacco: Never Smokeless Tobacco: Never Alcohol Use Standard Drinks/Week Comments Never 0 (1 standard drink = 0.6 oz pur e alcohol) Sex and Gender Information Value Date Recorded Sex Assigned at Not on file Gender Identity Not on file Sexual Orientation Not on file Job Start Date Occupation Industry Not on file Not on file Not on file documented as of this encounter Plan of Treatment Upcoming Encounters Date Type Department Care Team (Late Contact Info) Description 02/11/2025 8:30 AM EDT Office Visit Bariatric Surgery - [place] [address] [phone] Alvino Torres MD [address] [facility] [address] [place] [address] documented as of this encounter Visit Diagnoses Not on filedocumented in this encounter Care Teams Auto Headlight Mechanic Relationship Specialty Start Date End Date Rick Hatch MD [address] [place] [phone] PCP - General 06/04/10 documented as of this encounter
--- OUTSIDE RECORDS SUMMARY | 2024-10-22 09:35 | XMS_ITS | Clinical Summary ---
Author Organization [facility] Address [address] [place] [address] Phone Care Team Providers Care Meringuer Name Role Phone Rick Hatch MD Primary Care Provider Allergies Active Allergy Reactions Criticality Noted Date Comments Celecoxib 05/21/2024 Ibuprofen 12/30/2021 Naproxen Sodium 12/30/2021 Medications Medication Sig Dispensed Refills Start Date End Date Status acarbose (PRECOSE) 25 mg tablet TAKE 1 TABLET BY MOUTH THREE TIMES DAILY Active acetaminophen (TYLENOL) 500 mg tablet Take 1 Tablet by mouth. 04/11/2024 Active albuterol 2.5 mg /3 mL (0.083 %) nebulizer solution Take 3 mL (2.5 mg total) by nebulization. Active apixaban (ELIQUIS) 5 mg tablet Take by mouth. Active atorvastatin (LIPITOR) 40 mg tablet Take 1 tablet (40 mg total) by mouth 1 (one) time each day. Active cetirizine (ZyrTEC) 10 mg tablet Take by mouth 1 (one) time each day. Active cloNIDine (CATAPRES) 0.1 mg tablet Take 1 Tablet by mouth. 02/26/2024 Active escitalopram (LEXAPRO) 20 mg tablet Take 1 tablet (20 mg total) by mouth 1 (one) time each day in the morning. Active esomeprazole (NexIUM) [address] capsule Take 40 mg by mouth every morning (before breakfast). Active furosemide (LASIX) 20 mg tablet Take 1 Tablet by mouth. 03/30/2023 Active gabapentin (NEURONTIN) 800 mg tablet Take 1 Tablet by mouth. 06/22/2023 Active mirtazapine (REMERON) 7.5 mg tablet Take 1 Tablet by mouth. 02/26/2024 Active montelukast (SINGULAIR) 10 mg tablet Take 1 tablet (10 mg total) by mouth. at bedtime Active prazosin (MINIPRESS) 5 mg capsule Take 1 capsule (5 mg total) by mouth. 12/29/2023 Active senna 8.6 mg tablet Take by mouth. A ctive Carafate 100 mg/mL suspension Take 10 mL (1 g total) by mouth 4 (four) times a day. 02/05/2024 Active tiotropium (SPIRIVA) 18 mcg per inhalation capsule Place 1 capsule (18 mcg total) into inhaler and inhale. 03/12/2024 Active cariprazine (VRAYLAR) 4.5 mg capsule Take by mouth. Active zolpidem (AMBIEN) 10 mg tablet Take 1 tablet (10 mg total) by mouth. at bedtime 07/17/2024 Active topiramate (TOPAMAX) 100 mg tablet Take 1 tablet (100 mg total) by mouth 2 (two) times a day. 07/24/2024 Active sertraline (ZOLOFT) 100 mg tablet Take 2 tablets (200 mg total) by mouth 1 (one) time each day in the morning. 11/10/2023 Active cholecalciferol (VITAMIN D-3) 25 mcg (1,000 unit) capsule TAKE 1 CAPLET BY MOUTH DAILY 07/07/2024 Active Vitamins B Complex tablet Take 1 tablet by mouth 1 (one) time each day. 12/29/2023 Active temazepam (RESTORIL) 7.5 mg capsule TAKE 1 CAPSULE BY MOUTH EVERY NIGHT AT BEDTIME FOR SLEEP 08/20/2024 Active FreeStyle Lancets 28 gauge lancets USE ONCE A DAY 08/15/2024 Active FreeStyle Les 2 Sensor kit EVERY 14 DAILY USE S DIRECTED FOR TYPE 2 DIABETES MELLITUS 08/26/2024 Active blood sugar diagnostic (FreeStyle Lite Strips) test strip USE ONCE A DAY 08/16/2024 Ac tive azelastine (ASTELIN) 137 mcg (0.1 %) nasal spray Administer 2 sprays into each nostril 2 (two) times a day. 12/29/2023 Active acetic acid (VOSOL) 2 % otic solution INSTILL 5 DROPS IN BOTH EARS THREE TIMES DAILY FOR 7 DAYS 08/12/2024 Active levalbuterol (XOPENEX HFA) 45 mcg/actuation inhaler 2 puffs every 6 (six) hours. 08/30/2024 Active meclizine (ANTIVERT) 25 mg tablet Take 1 tablet (25 mg total) by mouth. 08/12/2024 Active ProChamber inhaler USED DIRECTED 09/19/2024 Active Active Problems Problem Noted Date Diagnosed Date Transfusion of blood product refused for religio us reason 08/07/2024 Low back pain 08/02/2024 Assessment & Plan (10/03/2024 1:49 PM EST): Patient follows up today to go over her lumbar spine MRI results, has persistent low back pain radiating to the hips and groin, posterior legs. She did not see improvement with ground PT, insurance did not cover aquatic PT. Last office visit she was hesitant to consider acupuncture. She cannot have injections. She has history of left L5-S1 discectomy [address] Sidhu, L5-S1 ALIF with Dr. Iverson 2009. She feels like her back did well for quite some time after surgery. She has history of PE, is on Eliquis, cannot take NSAIDs. Lumbar spine MRI 09/19/2024 looks good, minimal degenerative changes above L5-S1 fusion, Dr. Iverson is not recommending surgery. We reviewed the images in detail on the computer. Ms. Yanez states she would consider acupuncture, a couple names provided, she will see if her insurance covers it. All questions answered. She also has an upcoming appointment with her PCP next week, they plan to discuss hormone replacement therapy options to see if it will help some of her musculoskeletal symptoms. (We had discussed musculoskeletal syndrome of menopause in detail at last office visit, sometimes dx as fibromyalgia.) Assessment & Plan (09/11/2024 11:11 PM EST): Patient is following up after trying physical therapy for her low back pain, bilateral hip pain, that radiates to the groin, posterior legs L >R. Patient states she went 5 or 6 times, ended up discontinuing visits, felt her pain was worse after going for physical therapy. They had her use the stationary bike, do stretching exercises, band work. Currently she uses Tylenol or heat to manage her back pain. She has history of left L5-S1 discectomy [address] Sidhu, L5-S1 ALIF with Dr. Iverson 2009. She feels like her back did well for quite some time after surgery. She has history of PE, is on Eliquis, cannot take NSAIDs. Patient had hip x-rays 05/21/2024 that showed mild OA bilaterally, lumbar spine x-rays 05/21/2024 that showed L5-S1 fusion, mild loss of disc height L4-5. We reviewed her lumbar spine x-rays on the computer together. Ms. Yanez was not able to tolerate ground physical therapy, we talked about trying aquatic physical therapy, she states when I gave her a prescription for aquatic therapy last office visit, her insurance company would not cover it. She is not interested in trying acupuncture. She does not have a recent lumbar spine MRI, I will order and review it with Dr. Iverson. I will call patient with recommendations. Trochanteric bursitis of left hip 08/02/2024 Allergic rhinitis 05/21/2024 Arthritis of both knees 05/21/2024 Asthma 05/21/2024 Bipolar disorder 05/21/2024 Carpal tunnel syndrome 05/21/2024 Overview (08/07/2024): EMG 05/08/15 mild left median mononeuropathys/p left CTS surgery by Dr Gus Rivera on 01/18/06 Assessment & Plan (10/03/2024 1:36 PM EST): Patient still notes numbness in her hands R >L, positive EMG for bilateral carpal tunnel (mild), history of left carpal tunnel surgery with Dr. Rivera 01/18/2006. I gave her a prescription for wrist splints at her last office visit to wear at night, she has not yet gone to pick them up, will try to do that this week. Assessment & Plan (09/11/2024 11:01 PM EST): When patient was here for follow-up, she mention she still getting numbness tingling in the hands R >L, her EMG 06/03/2024 was positive for bilateral mild carpal tunnel syndrome, records mention patient having left carpal tunnel surgery with Dr. Rivera on 01/18/2006. When I called her with her EMG results a couple months ago, I mailed her a prescription to try wrist splints while sleeping at night, she states she did not get the prescription. She has not done any conservative treatments for her carpal tunnel symptoms since her last office visit. I gave patient new prescription for wrist splints, went over directions for use, we talked about occupational therapy which she is interested in trying, prescription given. We will follow-up after her physical therapy. Chronic sinusitis 05/21/2024 Constipation 05/21/2024 Overview (08/07/2024): Colonoscopy By Dr Maria C Nair 01/19/12 Impression: Normal mucosa in the whole colon Grade 1 internal hemorrhoids; Diverticulosis of the descending colon, transverse colon and cecum DDD (degenerative disc disease), lumbar 05/21/20 24 Overview (08/07/2024): Last Assessment & Plan: Patient states she primarily came in today for her bilateral hip and back pain, that radiates to the groins, posterior legs L >R. She has history of left L5-S1 discectomy [address] Sidhu, L5-S1 ALIF with Dr. Iverson 2009. She feels like her back did well for quite some time after surgery. At this point her back pain is typically a 10/10 with standing and walking, at best 4-6/10 if lying down. She has been having issues with her knees, saw [facility] orthopedics Dr. Lopez, he had offered her knee replacement for right >left knee pain, however at the time her mom was ill and she had to help take care of her, sadly she passed a few months ago. She still has a lot of knee pain affecting her gait. Ms. Yanez has severe low back and bilateral hip pain, sometimes radiates to the groin, sometimes anterior thighs, however main leg pain is posterior legs with tingling down to the toes. We can check lumbar spine x-rays to evaluate L5-S1 fusion, any adjacent segment degeneration. We can also check hip x-rays for degenerative change. We talked about trying physical therapy, she likes the idea of aquatic physical therapy best. We talked about other conservative treatment options, however we will see what her imaging shows. Ultimately she may need updated MRI lumbar spine. All questions answered. Fibromyositis 05/21/2024 Herpes labialis 05/21/2024 Hypersomnia with sleep apnea 05/21/2024 Hypoglycemia 05/21/2024 Insomnia 05/21/2024 Medication side effects present 05/21/2024 Overview (08/07/2024): History of Smalls esophagus, esophageal ulcer Memory impairment 05/21/2024 Morbid obesity 05/21/2024 Overview (08/07/2024): s/p laparoscopic adjustable gastric banding by Dr Alvino Torres on 11/10/06 Obstructive sleep apnea syndrome 05/21/2024 Other disorders of iron metabolism 05/21/2024 Restless leg syndrome 05/21/2024 Tear film insufficiency 05/21/2024 TIA (transient ischemic attack) 05/21/2024 Complication of surgical procedure 05/21/2024 Overview (08/07/2024): MRI lumbar 08/19/03 L5-S1 LEVEL HAS A PRIOR LEFT LAMINECTOMY. THERE IS A MODERATE AMOUNT OF SCAR WITHIN THE VENTRAL AND LEFT LATERAL EPIDURAL SPACES WELL LEFT LATERAL RECESS. THE LEFT LATERAL RECESS IS STENOTIC. THERE IS ENCASEMENT OF THE LEFT S1 NERVE ROOT BY THE SCAR. THE LEFT S1 NERVE ROOT APPEARS ENHANCING AND ENLARGED SUGGESTIVE OF INFLAMMATORY CHANGES. NO RECURRENT DISC HERNIATION OR THECAL SAC ENCROACHMENT IS SEEN. NO NEURAL FORAMINA NARROWING.L5-S1 radiculopathy by EMG 05/23/07 Neck pain 12/30/2021 Overview (08/07/2024): Last Assessment & Plan: She also has been seen a few times over the years for neck pain, today states her neck still is bothersome, would rate the pain 5-8/10. She also describes numbness tingling in the fingers/hands. She states it does wake her up at night, she feels like she has to shake the hands though. She has stiffness and tenderness in the upper back and neck. Her hands feel weak, she does drop things at times. Ms. Yanez had cervical spine MRI a couple years ago, mild C5-6 degenerative changes noted, however patient has persistent neck pain. No myelopathic findings on exam. She is describing symptoms that sound like carpal tunnel syndrome, + Tinel's at the wrist on exam, we can check EMG/NCS study UEs. Right bundle branch block 12/22/2017 Overview (08/07/2024): Per EKG at [facility] ER 12/22/17 Costochondritis 07/05/2012 Benign mammary dysplasia 01/03/2011 Overview (08/07/2024): epidermal inclusion cyst r axilla documented by u/s core bx 12-15-10 Mastodynia 12/02/2010 Smalls's esophagus with esophagitis 06/15/2006 Overview (08/07/2024): No dysplasia, repeat EGD in POSTOPERATIVE DIAGNOSES: 1. Symptomatic cholelithiasis. 2. Hiatal hernia with reflux disease. PROCEDURES: 1. Laparoscopic repair hiatal hernia with Hill procedure. 2. Laparoscopic cholecystectomy. SURGEON: Alvino Torres M.D. FAT PURIFICATION WORKER: Soy Chapman M.D.EGD 09/02/11 by Maria C aNir MD: Grade 3 esophagitis with reflux esophagitis. Smalls's esophagus w neg dysplasia. Esophageal diverticulum seen. Gastric mucosa, cardiac (mixed antral and fundic-body) type, with acute and chronic inflammation, reactive change, and pancreatic acinar metaplasia. Chronic gastritis with mild activity, mixed antral and fundic-body type mucosa. H. Pylori bacteria seen by immunohistochemistry.endoscopy 09/20/[address] Chris Booth; Erosive esophagitis (L.A. Class B), Gastroesophageal junction (biopsy): - Smalls's mucosa with chronic active inflammation, negative for dysplasia.Severe active esophagitis with erosion and parakeratosis.Smalls esophagus by endoscopy on Jun [address] Jeet Griffiths Cyst of ovary 07/20/2004 Overview (08/07/2024): right US 07/20/04 dominant cyst 1.6x2.7x1.4 cm Encounters Date Type Department Care Team Description 10/03/2024 1:00 PM EST Office Visit [facility] [address] [phone] Loly Forrest PA Bilateral carpal tunnel syndrome (Primary Dx); Chronic bilateral low back pain with bilateral sciatica 09/19/2024 9:02 AM EST - 09/19/2024 11:59 PM EST Hospital Encounter [facility] MRI [address] [place] [phone] Chronic bilateral low back pain with bilateral sciatica Discharge Disposition: Home or Self Care 09/12/[address] [phone] Crystal Trejo [place] [id number] fax[facility] to [facility]. Will contact pt w/appt.) 09/10/2024 1:00 PM EST Office Visit [address] [phone] Loly Forrest PA Bilateral carpal tunnel syndrome (Primary Dx); Chronic bilateral low back pain with bilateral sciatica 08/06/2024 Telephone [facility] [address] [phone] Leona Cortés, PT from Last 3 Months Immunizations Name Administration Dates Next Due Influenza trivalent, 0.5mL, preservative free (Fluarix; FluLaval; Fluzone) ages 6mo and older (Afluria) 3 years and older 06/24/2021,08/31/2020 Influenza trivalent, with preservative (Fluzone; Afluria) 6mo and older 10/18/2023,10/20/2022,08/19/2019,2017,07/05/2017,08/05/2015,06/25/2012 Tdap Tetanus diptheria acell ular pertussis (Boostrix; Adacel) 7yo and older 10/20/2022,12/12/2012 Zoster recombinant (Shingrix ) 19yo and older 03/08/2023,11/07/2019 Surgical History Surgery Date Site/Laterality Comments OTHER SURGICAL HISTORY 05/25/2010 L5-S1 ALIF [address] Dr. Iverson. OTHER SURGICAL HISTORY 05/28/2003 Left Left L5-S1 discectomy, Dr. Sidhu OTHER SURGICAL HISTORY HISTORICAL PANNICULECTOMY APPENDECTOMY BREAST REDUCTION OTHER SURGICAL HISTORY 08/2023 bladder lift, ?rectocele repair Medical History Medical History Date Comments Fibromyalgia Smalls's esophagus Cannot take NSAIDs, history of esophagitis Restless leg syndrome Fatty liver Other pulmonary embolism wit hout acute cor pulmonale (CMS/HCC) 08/2021 On apixaban Mixed hyperlipidemia Anxiety and depression Arthritis Shortness of breath Mild intermittent asthma, uncomplicated Social History Tobacco Use Types Packs/Day Years Used Date Smoking Tobacco: Never Smokeless Tobacco: Never Tobacco Cessation:Counseling Given: Not Answered Alcohol Use Standard Drinks/Week Comments Never 0 (1 standard drink = 0.6 oz pur e alcohol) Sex and Gender Information Value Date Recorded Sex Assigned at Not on file Gender Identity Not on file Sexual Orientation Not on file Job Start Date Occupation Industry Not on file Not on file Not on file Obstetrics History Last Filed Vital Signs Vital Sign Reading Time Taken Comments Blood Pressure - - Pulse - - Temperature - - Respiratory Rate - - Oxygen Saturation - - Inhaled Oxygen Concentration - - Weight 109 kg (241 lb) 10/03/2024 1:12 PM EST Height 165.1 cm (5' 5 ) 10/03/2024 1:12 PM EST Body Mass Index 40.1 10/03/2024 1:12 PM EST Plan of Treatment Upcoming Encounters Date Type Department Care Team (Late st Contact Info) Description 02/11/2025 8:30 AM EDT Office Visit Bariatric Surgery - [place] [address] [facility] [address] [place] [phone] Alvino Torres MD [address] [facility] [address] [place] [address] Health Maintenance Due Date Last Done Comments Breast Cancer Screening 1965 Pneumococcal Vaccine: Pediatrics (0 to 5 Years) and At-Risk Patients (6 to 64 Years) (1 of 2 - PCV) 12/10/1971 Hepatitis B Vaccines (1 of 3 - 19+ 3-dose series) 1984 Cervical Cancer Screening: Pap Smear 1986 Cholesterol Screening (Lipid Panel) 08/28/2022 Colorectal Cancer Screening: Colonoscopy 08/28/2022 Depression Screening 08/28/2022 HIV Screening 08/28/2022 Hepatitis C Screening 08/28/2022 Social Influencers of Health Screening 08/28/2022 COVID-19 Vaccine ( season) 2024 09/01/2021, 01/15/2021, 12/18/2020 Influenza Vaccine (#1) 2024 , 10/20/2022, 06/24/2021, Additional history exists DTaP,Tdap,and Td Vaccines (3 - Td or Tdap) 10/20/2032 10/20/2022, 12/12/2012 Zoster Vaccines Completed 03/08/2023, 11/07/2019 HIB Vaccines Aged Out No longer eligi ble based on patient's age to complete this topic HPV Vaccines Aged Out No longer eligi ble based on patient's age to complete this topic Hepatitis A Vaccines Aged Out No long er eligible based on patient's age to complete this topic IPV Vaccines Aged Out No longer eligi ble based on patient's age to complete this topic MMR Vaccines Aged Out No longer eligi ble based on patient's age to complete this topic Meningococcal ACWY Vaccine Aged Out N o longer eligible based on patient's age to complete this topic RSV Immunization Patients Under 20 months Aged Out No longer eligible based on patient's age to complete this topic Varicella Vaccines Aged Out No longer eligible based on patient's age to complete this topic Procedures Procedure Name Priority Date/Time Associated Diagnosis Comments MR LUMBAR SPINE WO CONTRAST Routine 09/19/2024 10:12 AM EST Chronic bilateral low back pain with bilateral sciatica from Last 3 Months Results * MR Lumbar Spine wo Contrast (09/19/2024 10:12 AM EST) Anatomical Region Laterality Modality L-spine, Spine Magnetic Resonan ce 09/19/2024 10:3 1 AM EST Impressions 09/19/2024 11:28 AM EST L5-S1 fusion. ??Mild degenerative changes as detailed above. ??No high-grade spinal or foraminal stenosis. -------- FINAL REPORT -------- Dictated By: Daren Swanson Dictated Date: 09/19/2024 10:31 ET Assigned Physician: Daren Swanson Reviewed and Electronically Signed By: Daren Swanson Signed Date: 09/19/2024 11:28 ET Workstation ID: [id number] Transcribed By: Self Edit Transcribed Date: 09/19/2024 10:45 ET Narrative 09/19/2024 11:28 AM EST MRI of the lumbar spine, 09/19/2024. TECHNIQUE: Multiplanar multisequence MRI of the lumbar spine without intravenous contrast administration. HISTORY: Low back pain, prior surgery, new symptoms COMPARISON: CT abdomen and pelvis 08/17/2019. ??Lumbar spine radiographs 09/11/2018. FINDINGS: The paraspinous soft tissues are normal. Mild Baastrup's changes. ??Alignment is normal. ??Anterior fusion hardware at L5-S1. ??There is bony fusion of the endplates as well. ??No concerning marrow infiltrative lesion. ??Vertebral body hemangiomas at T12 and T11. Normal position of the conus at T12. Lumbar disc levels: L1-2: Only imaged in the sagittal plane. ??Minimal degenerative irregularity of the facet joints. ??No spinal or foraminal stenosis. L2-3: Minimal degenerative irregularity of the facet joints. ??No significant spinal or foraminal stenosis. L3-4: Minimal degenerative irregularity of the facet joints. ??Small left foraminal focal protrusion. ??No significant spinal or foraminal stenosis. L4-5: Mild bilateral ligamentum flavum hypertrophy and slight widening of the facet joints suggesting mild hypermobility. ??No significant spinal or foraminal stenosis. L5-S1: Fusion level. ??No spinal or foraminal stenosis. Procedure Note Daren Swanson MD - 09/19/2024 MRI of the lumbar spine, 09/19/2024. TECHNIQUE: Multiplanar multisequence MRI of the lumbar spine withoutintravenous contrast administration. HISTORY: Low back pain, prior surgery, new symptoms COMPARISON: CT abdomen and pelvis 08/17/2019. Lumbar spine [id number]/18/2018. FINDINGS: The paraspinous soft tissues are normal. Mild Baastrup's changes. Alignment is normal. Anterior fusion hardwareat L5-S1. There is bony fusion of the endplates as well. No concerningmarrow infiltrative lesion. Vertebral body hemangiomas at T12 and T11. Normal position of the conus at T12. Lumbar disc levels: L1-2: Only imaged in the sagittal plane. Minimal degenerativeirregularity of the facet joints. No spinal or foraminal stenosis. L2-3: Minimal degenerative irregularity of the facet joints. Nosignificant spinal or foraminal stenosis. L3-4: Minimal degenerative irregularity of the facet joints. Small leftforaminal focal protrusion. No significant spinal or foraminalstenosis. L4-5: Mild bilateral ligamentum flavum hypertrophy and slight widening ofthe facet joints suggesting mild hypermobility. No significant spinal orforaminal stenosis. L5-S1: Fusion level. No spinal or foraminal stenosis. IMPRESSION: L5-S1 fusion. Mild degenerative changes as detailed above. No high-gradespinal or foraminal stenosis. -------- FINAL REPORT -------- Dictated By: Daren Swanson Dictated Date: 09/19/2024 10:31 ET Assigned Physician: Daren Swanson Reviewed and Electronically Signed By: Daren Swanson Signed Date: 09/19/2024 11:28 ET Workstation ID: [id number] Transcribed By: Self Edit Transcribed Date: 09/19/2024 10:45 ET Loly JOSHUA IMG MRI PROCEDURES from Last 3 Months Advance Directives Documents on File Type Date Recorded Patient [employer] Representative Expl anation Health Care Decision (hx) 05/25/2010 AD BLUM DIRECTIVE Health Care Decision (hx) 05/25/2010 AD BLMU DIRECTIVE Health Care Decision (hx) 05/25/2010 AD BLUM DIRECTIVE Health Care Decision (hx) 05/25/2010 AD BLUM DIRECTIVE Health Care Decision (hx) 05/25/2010 AD BLUM DIRECTIVE Health Care Decision (hx) 05/25/2010 AD BLUM DIRECTIVE Care Teams Meringuer Relationship Specialty Start Date End Date Rick Hatch MD [address] [place] [phone] PCP - General 06/04/10
--- OUTSIDE RECORDS SUMMARY | 2024-10-22 09:35 | XMS_ITS | Encounter Summary ---
Author Organization [employer] Address [address] [place] [address] Care Team Providers Care Imaging Scheduler Name Role Phone Rick Hatch MD Primary Care Provider Reason for Visit * Reason Comments Follow-up MRI results Encounter Details Date Type Department Care Team ([facility] Contact Info) Description 10/03/2024 1:00 PM EST Office Visit Neurosurgery [facility] [address] [place] [phone] Loly Forrest PA [address], [address] [place] [address] Bilateral carpal tunnel syndrome (Primary Dx); Chronic bilateral low back pain with bilateral sciatica Social History Tobacco Use Types Packs/Day Years [...] on file documented as of this encounter Last Filed Vital Signs Vital Sign Reading Time Taken Comments Blood Pressure - - Pulse - - Temperature - - Respiratory Rate - - Oxygen Saturation - - Inhaled Oxygen Concentration - - Weight 109 kg (241 lb) 10/03/2024 1:12 PM EST Height 165.1 cm (5' 5 ) 10/03/2024 1:12 PM EST Body Mass Index 40.1 10/03/2024 1:12 PM EST documented in this encounter Progress Notes * TRES [place] - 10/03/2024 1:40 PM ESTAssociated Problem(s): Low back pain Patient follows up today to go over her lumbar spine MRI results, has persistent low back pain radiating to the hips and groin, posterior legs. She did not see improvement with ground PT, insurance did not cover aquatic PT. Last office visit she was hesitant to consider acupuncture. She cannot haveinjections. She has history of left L5-S1 discectomy [address] Sidhu, L5-S1 ALIF with Dr. [id number]. She feels like her back did well for quite some time after surgery. She has history of PE, caridad Eliquis, cannot take NSAIDs. Lumbar spine MRI [...] last office visit, sometimes dx as fibromyalgia.) * TRES [place] - 10/03/2024 1:36 PM ESTAssociated Problem(s): Carpal tunnel syndrome Patient still notes numbness in her hands R >L, positive EMG for bilateral carpal tunnel (mild),history of left carpal tunnel surgery with Dr. Rivera 01/18/2006. I gave her a prescription for wristsplints at her last office visit to wear at night, she has not yet gone to pick them up, will try to do that this week. * TRES [place] - 10/03/2024 1:00 PM EST NEUROSURGERY OFFICE VISIT Date of Visit: 10/03/2024 Referring Physician: Rick Hatch,* Primary Care Physician: Rick Hatch MD RE: Aimee Yanez : 1965 Aimee Yanez follows up today to go over her [...] PE, is on Eliquis, cannot take NSAIDs. Past Medical History: Diagnosis Date Anxiety and depression Arthritis Smalls's esophagus Cannot take NSAIDs, history of esophagitis Fatty liver Fibromyalgia Mild intermittent asthma, uncomplicated Mixed hyperlipidemia Other pulmonary embolism without acute cor pulmonale (CMS/HCC) 08/2021 On apixaban Restless leg syndrome Shortness of breath Past Surgical History: Procedure Laterality Date APPENDECTOMY BREAST REDUCTION OTHER SURGICAL HISTORY 05/25/2010 L5-S[address] Iverson. OTHER SURGICAL HISTORY Left 05/28/2003 Left L5-S1 discectomy, Dr. Sidhu OTHER SURGICAL HISTORY HISTORICAL PANNICULECTOMY OTHER SURGICAL HISTORY 08/2023 bladder lift, ?rectocele repair Current Outpatient Medications Medication Instructions acarbose (PRECOSE) 25 mg tablet TAKE 1 TABLET BY MOUTH THREE TIMES DAILY acetaminophen (TYLENOL) 500 mg tablet Take 1 Tablet by mouth. acetic acid (VOSOL) 2 % otic solution INSTILL 5 DROPS IN BOTH EARS THREE TIMES DAILY FOR 7 DAYS albuterol 2.5 mg, nebulization apixaban (ELIQUIS) 5 mg tablet Take by mouth. atorvastatin (LIPITOR) 40 mg, oral, Daily azelastine (ASTELIN) 137 mcg (0.1 %) nasal spray 2 sprays, Each Nostril, 2 times daily blood sugar diagnostic (FreeStyle Lite Strips) test strip USE ONCE A DAY Carafate 1 g, oral, 4 times daily cariprazine (VRAYLAR) 4.5 mg capsule oral cetirizine (ZyrTEC) 10 mg tablet oral, Daily cholecalciferol (VITAMIN D-3) 25 mcg (1,000 unit) capsule TAKE 1 CAPLET BY MOUTH DAILY cloNIDine (CATAPRES) 0.1 mg tablet Take 1 Tablet by mouth. escitalopram (LEXAPRO) 20 mg, oral, Every morning esomeprazole (NexIUM) [address] capsule Take 40 mg by mouth every morning (before breakfast). FreeStyle Lancets 28 gauge lancets USE ONCE A DAY FreeStyle Les 2 Sensor kit EVERY 14 DAILY USE S DIRECTED FOR TYPE 2 DIABETES MELLITUS furosemide (LASIX) 20 mg tablet Take 1 Tablet by mouth. gabapentin (NEURONTIN) 800 mg tablet Take 1 Tablet by mouth. levalbuterol (XOPENEX HFA) 45 mcg/actuation inhaler 2 puffs, Every 6 hours meclizine (ANTIVERT) 25 mg, oral mirtazapine (REMERON) 7.5 mg tablet Take 1 Tablet by mouth. montelukast (SINGULAIR) 10 mg, oral, at bedtime prazosin (MINIPRESS) 5 mg, oral ProChamber inhaler USED DIRECTED senna 8.6 mg tablet oral sertraline (ZOLOFT) 200 mg, Every morning temazepam (RESTORIL) 7.5 mg capsule TAKE 1 CAPSULE BY MOUTH EVERY NIGHT AT BEDTIME FOR SLEEP tiotropium (SPIRIVA) 18 mcg per inhalation capsule 1 capsule, inhalation topiramate (TOPAMAX) 100 mg, oral, 2 times daily Vitamins B Complex tablet 1 tablet, oral, Daily zolpidem (AMBIEN) 10 mg EXAM: On exam, she is awake and alert. Speech and comprehension is intact. Respirations are unlabored. Motor exam stable. No hyperreflexia. Pt is ambulating independently. IMAGING: MRI of the lumbar spine, 09/19/2024. HISTORY: Low back pain, prior surgery, new symptoms COMPARISON: CT abdomen and pelvis 08/17/2019. Lumbar spine radiographs 09/11/2018. FINDINGS: The paraspinous soft tissues are normal. Mild Baastrup's changes. Alignment is normal. Anterior fusion hardware at L5-S1. There is bony fusion of the endplates as well. No concerning marrow infiltrative lesion. Vertebral body hemangiomas atT12 and T11. Normal position of the conus at T12. Lumbar disc levels: L1-2: Only imaged in the sagittal plane. Minimal degenerative irregularity of the facet joints. No spinal or foraminal stenosis. L2-3: Minimal degenerative irregularity of the facet joints. No significant spinal or foraminal stenosis. L3-4: Minimal degenerative irregularity of the facet joints. Small left foraminal focal protrusion.No significant spinal or foraminal stenosis. L4-5: Mild bilateral ligamentum flavum hypertrophy and slight widening of the facet joints suggesting mild hypermobility. No significant spinal or foraminal stenosis. L5-S1: Fusion level. No spinal or foraminal stenosis. IMPRESSION: L5-S1 fusion. Mild degenerative changes as detailed above. No high-grade spinal or foraminal stenosis. Problem List Items Addressed This Visit Low back pain Patient follows up today to go over her lumbar spine MRI results, has persistent low back pain radiating to the hips and groin, posterior legs. She did not see improvement with ground PT, insurance did not cover aquatic PT. Last office visit she was hesitant to consider acupuncture. She cannot haveinjections. She has history of left L5-S1 discectomy [address] Sidhu, L5-S1 ALIF with Dr. [id number]. She feels like her back did well for quite some time after surgery. She has history of PE, caridad Eliquis, cannot take NSAIDs. Lumbar spine MRI [...] last office visit, sometimes dx as fibromyalgia.) Carpal tunnel syndrome - Primary Patient still notes numbness in her hands R >L, positive EMG for bilateral carpal tunnel (mild),history of left carpal tunnel surgery with Dr. Rivera 01/18/2006. I gave her a prescription for wristsplints at her last office visit to wear at night, she has not yet gone to pick them up, will try to do that this week. All questions answered. she will call with any questions. Total time spent 30 minutes, time spent includes reviewing history for low back pain and bilateral carpal tunnel syndrome, previous imaging, reviewed MRI lumbar spine on the computer together, plan, patient counseling. TRES [place]oughby on 10/03/2024 at 1:49 PM EST [facility] Neurosurgical [place] documented in this encounter Plan of Treatment Upcoming Encounters Date Type Department Care Team (Late st Contact Info) Description 02/11/2025 8:30 AM EDT Office Visit Bariatric Surgery - [address] [phone] Alvino Torres MD [address] [place] [phone] documented as of this encounter Visit Diagnoses Diagnosis Bilateral carpal tunnel syndrome- Primary Carpal tunnel syndrome Chronic bilateral low back pain with bilateral sciatica documented in this encounter Historical Medications * This list may reflect changes made after this encounter. Medication Sig Dispensed Refills Start Date End Date ProChamber inhaler USED DIRECTED 09/19/2024 added in this encounter Care Teams Imaging Scheduler Relationship Specialty Start Date End Date Rick Hatch MD [address] [place] [phone] PCP - General 06/04/10 documented as of this encounter
--- OUTSIDE RECORDS SUMMARY | 2024-10-22 09:35 | XMS_ITS | Continuity of Care Document ---
Author Organization [facility], [facility] 2nd floor Address [address] [place] [address] Care Team Providers Care B2B Account Executive Name Role Phone GWEN BEDOYA Primary Care Provider [phone] Assessment No assessment recorded. Plan of Treatment Reminders Order Date Submit Date Provider Last Modified By Organization Details Last Modified Time Details Appointments NEW PATIENT 15 2024 10:30A M Rabia Bush PA-C Not available Not available Not available Lab None recorded . Referral None recorded . Procedures None recorded . Surgeries None recorded . Imaging None recorded . Medication Orders None recorded . Patient TargetsNo targets recorded. Patient InstructionsNo instructions recorded. Reason for Referral None Reported. Problems Name Problem SNOMED Code Status Onset Date Resolution Date Notes Provider Name and Address Organization Details Recorded Time Primary gonarthros is, bilateral [id number] Active 2023 [facility] 4 15:36:04 Pain of joint of knee 9322576127 Active 2020 Problem Code: M25.569; Problem Code Type: ICD-10; Status: 'A'; Not Available [facility] 4 10:56:33 Problem Notes None recorded. Procedures Surgical History Date Name Laterality Status Provider Name and Address Organization Details Recorded Time 4 Knee Kenalog 40 1cc Injection, Bilateral completed Rabia Bush PA-C [address], [place], [address], [facility] 03/21/2024 13:02:31 Imaging Results None recorded. Procedure Notes None recorded. Medical Equipment None Reported. Allergies Allergen ID Allergen Name Allergen Category Reaction Reaction Severity Criticality Documentation Date Start Date Code Code System Note Provider Name and Address Organization Details Recorded Time 975179 Non-stero idal anti-infl ammatory agent (product) medicatio n Not available Not available Not available 01/25/2024 [id number] SNOMED CARLOS valles [place] - [facility] 4 13:56:26 Medications Name Sig Start Date Stop Date Status Note LastModified by Organization Details LastModified Time glucose 4-6 gm-mg chew 08/09 completed Not Available Not Available Not Available vitamin d3 25 mcg (1000 ut) tabs 08/09 completed Not Available Not Available Not Available vitamin d3 25 mcg (1000 ut) caps 08/09 completed Not Available Not Available Not Available freestyle lite test strips strp active Not Available Not Available Not Available freestyle lancets misc active Not Available Not Available Not Available quetiapine 25 mg tablet TAKE 1/2 TABLET BY MOUTH EVERY NIGHT AT BEDTIME FOR SLEEP 09/24 completed Not Available Not Available Not Available amoxicillin 500 mg capsule TAKE ONE CAPSULE BY MOUTH THREE TIMES DAILY 08/09 completed Not Available Not Available Not Available atorvastati n 40 mg tablet TAKE 1 TABLET BY MOUTH DAILY active Not Available Not Available No t Available BD Alcohol Swabs USE DIRECTED ONCE DAILY FOR BLOOD SUGAR TESTING 08/09 completed Not Available Not Available Not Available acetic acid 2 % ear solution INSTILL 5 DROPS IN BOTH EARS THREE TIMES DAILY FOR 7 DAYS active Not Available Not Available No t Available clonidine HCl 0.1 mg tablet TAKE 1/2 TABLET BY MOUTH DAILY FOR ANXIETY active Not Available Not Available No t Available gabapentin 600 mg tablet TAKE 1 TABLET BY MOUTH FOUR TIMES DAILY active Not Available Not Available No t Available albuterol sulfate 2.5 mg/3 mL (0.083 %) solution for nebulizatio n USE 3 ML VIA NEBULIZER EVERY 6 HOURS NEEDED FOR WHEEZING active Not Available Not Available No t Available Pain Reliever (acetaminop hen) 325 mg tablet TAKE 3 TABLETS BY MOUTH EVERY 6 HOURS NEEDED FOR PAIN active Not Available Not Available No t Available cetirizine 10 mg tablet TAKE 1 TABLET BY MOUTH EVERY DAY NEEDED FOR ALLERGIES active Not Available Not Available No t Available azithromyci n 250 mg tablet 09/24 completed Not Available Not Available Not Available ibuprofen 800 mg tablet TAKE 1 TABLET BY MOUTH THREE TIMES DAILY NEEDED FOR PAIN 01/24 completed Not Available Not Available Not Available senna 8.6 mg tablet TAKE 2 TABLETS BY MOUTH EVERY NIGHT AT BEDTIME NEEDED FOR CONSTIPAT ION active Not Available Not Available No t Available sucralfate 100 mg/mL oral suspension SHAKE LIQUID AND TAKE 10 ML BY MOUTH THREE TIMES DAILY BEFORE MEALS AND AT BEDTIME NEEDED FOR HEARTBURN . DISCONTIN UE SUCRALFAT E 1 GM TABLET active Not Available Not Available No t Available sucralfate 1 gram tablet TAKE 1 TABLET BY MOUTH FOUR TIMES DAILY BEFORE MEAL/BEDT BELEM active Not Available Not Available No t Available FreeStyle Lancets 28 gauge USE ONCE A DAY active Not Available Not Available No t Available phenazopyri dine 200 mg tablet TAKE 1 TABLET BY MOUTH THREE TIMES DAILY FOR 3 DAYS 08/09 completed Not Available Not Available Not Available clonidine HCl 0.3 mg tablet TAKE 1 TABLET BY MOUTH THREE TIMES DAILY 01/24 completed Not Available Not Available Not Available sertraline 100 mg tablet TAKE 2 TABLETS BY MOUTH EVERY DAY IN THE MORNING 08/09 completed Not Available Not Available Not Available Milk of Magnesia 400 mg/5 mL oral suspension TAKE 150 ML BY MOUTH ONCE NEEDED FOR CONSTIPAT ION 08/09 completed Not Available Not Available Not Available acarbose 50 mg tablet TAKE 1 TABLET BY MOUTH THREE TIMES DAILY active Not Available Not Available No t Available sulfamethox azole 800 mg-trimetho prim 160 mg tablet TAKE 1 TABLET BY MOUTH TWICE DAILY FOR 5 DAYS 08/09 completed Not Available Not Available Not Available acetaminoph en 500 mg tablet TAKE ONE TABLET BY MOUTH EVERY 6 HOURS NEEDED FPR PAIN 08/09 completed Not Available Not Available Not Available temazepam 7.5 mg capsule TAKE 1 CAPSULE BY MOUTH EVERY NIGHT AT BEDTIME FOR SLEEP active Not Available Not Available No t Available acetaminoph en ER 650 mg tablet,exte nded release TAKE 2 TABLETS BY MOUTH EVERY 8 HOURS NEEDED FOR PAIN active Not Available Not Available No t Available prazosin 5 mg capsule TAKE 2 CAPSULES BY MOUTH AT BEDTIME active Not Available Not Available No t Available clonidine HCl 0.2 mg tablet TAKE 1 TABLET BY MOUTH EVERY NIGHT AT BEDTIME active Not Available Not Available No t Available Vitamins B Complex tablet TAKE 1 TABLET BY MOUTH EVERY DAY 08/09 completed Not Available Not Available Not Available methocarbam ol 750 mg tablet TAKE 2 TABLETS BY MOUTH TWICE DAILY 08/09 completed Not Available Not Available Not Available gabapentin 800 mg tablet TAKE 1 TABLET BY MOUTH FOUR TIMES DAILY 08/09 completed Not Available Not Available Not Available trazodone 100 mg tablet TAKE 3 TABLETS BY MOUTH AT BEDTIME 01/24 completed Not Available Not Available Not Available meclizine 25 mg tablet TAKE 1 TABLET BY MOUTH THREE TIMES DAILY active Not Available Not Available No t Available esomeprazol e magnesium 40 mg capsule,del ayed release TAKE 1 CAPSULE BY MOUTH DAILY active Not Available Not Available No t Available glucose 4 gram chewable tablet active Not Available Not Available Not Available montelukast 10 mg tablet TAKE 1 TABLET BY MOUTH DAILY AT BEDTIME active Not Available Not Available No t Available zolpidem 5 mg tablet TAKE 1 TABLET BY MOUTH EVERY NIGHT AT BEDTIME. MAY TAKE HALF TABLET NEEDED 08/09 completed Not Available Not Available Not Available furosemide 20 mg tablet TAKE 1 TABLET BY MOUTH TWICE DAILY active Not Available Not Available No t Available azelastine 137 mcg (0.1 %) nasal spray USE 2 SPRAYS IN EACH NOSTRIL TWICE DAILY 08/09 completed Not Available Not Available Not Available cefuroxime axetil 500 mg tablet TAKE 1 TABLET BY MOUTH TWICE DAILY FOR 7 DAYS 09/24 completed Not Available Not Available Not Available polyethylen e glycol 3350 17 gram/dose oral powder MIX ONE CAPFUL IN 8 OUNCES OF JUICE OR WATER AND DRINK ONCE A DAY 09/24 completed Not Available Not Available Not Available estradiol 0.01% (0.1 mg/gram) vaginal cream 08/09 completed Not Available Not Available Not Available zolpidem 10 mg tablet TAKE 1 TABLET BY MOUTH EVERY NIGHT AT BEDTIME 09/24 completed Not Available Not Available Not Available topiramate 100 mg tablet TAKE 1 TABLET BY MOUTH TWICE DAILY active Not Available Not Available No t Available prazosin 2 mg capsule TAKE 1 CAPSULE BY MOUTH AT BEDTIME 01/24 completed Not Available Not Available Not Available acarbose 25 mg tablet TAKE 1 TABLET BY MOUTH THREE TIMES DAILY 01/24 completed Not Available Not Available Not Available Ventolin HFA 90 mcg/actuati on aerosol inhaler INHALE 2 PUFFS BY MOUTH FOUR TIMES DAILY NEEDED FOR WHEEZING OR SHORTNESS OF BREATH active Not Available Not Available No t Available oxycodone 5 mg tablet TAKE 1 TABLET BY MOUTH EVERY 6 HOURS NEEDED FOR PAIN 01/24 completed Not Available Not Available Not Available cholecalcif anne (vitamin D3) 25 mcg (1,000 unit) capsule TAKE 1 CAPLET BY MOUTH DAILY 08/09 completed Not Available Not Available Not Available escitalopra m 10 mg tablet TAKE 1 TABLET BY MOUTH EVERY MORNING 01/24 completed Not Available Not Available Not Available escitalopra m 20 mg tablet TAKE 1 TABLET BY MOUTH EVERY MORNING active Not Available Not Available No t Available Premarin 0.625 mg/gram vaginal cream USE 0.5 TO 1 GRAM VAGINALLY 2 TO 3 TIMES EVERY WEEK active Not Available Not Available No t Available bupropion HCl XL 150 mg 24 hr tablet, extended release TAKE 1 TABLET BY MOUTH EVERY MORNING 08/09 completed Not Available Not Available Not Available Spiriva with HandiHaler 18 mcg and inhalation capsules INHALE THE CONTENTS OF 1 CAPSULE VIA INHALATIO N DEVICE DAILY 08/09 completed Not Available Not Available Not Available mirtazapine 7.5 mg tablet TAKE 1 TABLET BY MOUTH DAILY FOR INSOMNIA 08/09 completed Not Available Not Available Not Available trospium 20 mg tablet TAKE 1 TABLET BY MOUTH TWICE DAILY 08/09 completed Not Available Not Available Not Available levalbutero l HFA 45 mcg/actuati on aerosol inhaler INHALE 2 PUFFS BY MOUTH EVERY 6 HOURS active Not Available Not Available No t Available Singulair Singulair 4MG Packet once a day 01/27 completed Statu s: 'Disc ontin ued'; Not Available Not Available Not Available Advair Diskus Advair Diskus 250-50MCG /DOSE once a day 01/27 completed Statu s: 'Disc ontin ued'; Not Available Not Available Not Available quetiapine 50 mg tablet TAKE 1 TABLET BY MOUTH EVERY NIGHT AT BEDTIME FOR INSOMNIA 08/09 completed Not Available Not Available Not Available cholecalcif anne (vitamin D3) 25 mcg (1,000 unit) tablet TAKE 1 TABLET BY MOUTH DAILY active Not Available Not Available No t Available Symbicort 160 mcg-4.5 mcg/actuati on HFA aerosol inhaler INHALE 2 PUFFS BY MOUTH TWICE DAILY 09/24 completed Not Available Not Available Not Available FreeStyle Lite Meter kit USE DIRECTED 01/24 completed Not Available Not Available Not Available FreeStyle Lite Strips USE ONCE A DAY active Not Available Not Available No t Available diclofenac 1 % topical gel APPLY 2 GRAMS TO THE AFFECTED AREA FOUR TIMES DAILY FOR 14 DAYS 08/09 completed Not Available Not Available Not Available oxycodone HCl-oxycodo ne-ASA [address] WHILE TAKING THIS MEDICATIO N 01/27 completed Statu s: 'Disc ontin ued'; Not Available Not Available Not Available estradiol 10 mcg vaginal tablet INSERT 1 TABLET VAGINALLY DAILY AT BEDTIME active Not Available Not Available No t Available ProChamber USED DIRECTED active Not Available Not Available No t Available Eliquis 2.5 mg tablet TAKE 1 TABLET BY MOUTH TWICE DAILY active Not Available Not Available No t Available Vraylar 4.5 mg capsule TAKE 1 CAPSULE BY MOUTH EVERY MORNING 08/09 completed Not Available Not Available Not Available Vraylar 3 mg capsule TAKE 1 CAPSULE BY MOUTH EVERY MORNING active Not Available Not Available No t Available Xiidra 5 % eye drops in a dropperette INSTILL 1 DROP IN BOTH EYES TWICE DAILY 08/09 completed Not Available Not Available Not Available Baqsimi 3 mg/actuatio n nasal spray SPRAY ONCE IN LEFT NOSTRIL NEEDED FOR UNRESPONS ANNALEE PATIENT WITH LOW BLOOD SUGAR active Not Available Not Available No t Available FreeStyle Les 2 Sensor kit EVERY 14 DAILY USE S DIRECTED FOR TYPE 2 DIABETES MELLITUS active Not Available Not Available No t Available BinaxNOW COVID-19 Ag Self Test kit TEST DIRECTED TODAY 01/24 completed Not Available Not Available Not Available Vitals Date Recorded Body height Body mass index (BMI) Body weight Provider Name and Address Organization Details Last Updated DateTime 09/24/2024 165.1 cm 40.4 kg/m2 915954.95 g Kodi Mae [place] - [facility] 09/24/2024 10:54:21 Social History None recorded. Functional Status None recorded. Mental Status None recorded. Family History Nothing Reported. Medical History No medical history recorded. Gynecological HistoryNo gynecological history recorded. Obstetrics History GPAL:G 0 P 0 0 0 0 Past Encounters Encounter ID Performer Location Encounter Start Date Encounter Closed Date Diagnosis/Indication Diagnosis SNOMED-CT Code Diagnosis ICD10 Code Diagnosis Note Rabia Bush PA-C [facility] [address] [address] 09/24/2024 10:47:14 10/09/2024 10:00:35 Primary gonarthrosis, bilateral 691112298 M17.0 Health Concerns Section Related Observation LastModified by Organization Detai ls LastModified Time None Recorded Concern Status LastModified by Organization Details LastModified Time None Recorded Payers Encounter Date Sequence Insurance Name Policy Number Policy Crowell Covered Member ID Crowell Member ID Guarantor Name 09/24/[address] [facility] (MEDICAID REPLACEMENT - HMO) [id number] Aimee Yanez [id number] Aimee Rootrio Notes Date Note Type Note Provider Name and Address Organization Details Recorded Time 09/24/2024 text/html I am seeing the patient today under the supervision of Dr. Rodriguez who was available but who did not see the patient. HPI: Aimee presents to the office today for a recheck of her bilateral knees. She is accompanied by her daughter. She has had multiple cortisone injections which only provided her with temporary relief. For months she has been performing a physician directed home exercise program. She takes Tylenol and [id number]-[id number] NSAIDs for her pain. She indicates that she has been having issues with fluctuating glucose levels and has been seeing her seismometer operator. She recently had an MRI of her bilateral knees and is here to review the results. Currently the right knee is more painful than the left. PMH/PSH/MEDS/ALL/FMH/ SOC HX/ROS are reviewed in detail per my medical intake sheet. General Exam: Vital signs are as noted below Mental status: Alert and lucid. Normal insight, affect and grooming. ENROLLMENT MANAGEMENT COORDINATOR: Gross motor coordination is intact. No spasticity or clonus noted. EXAMINATION: The patient is well appearing and in no apparent distress. Alert and oriented x3. Gait is antalgic. {{Right knee reveals Left knee reveals Bilateral knees reveal*}} {{varus valgus no*}} deformity upon inspection. No joint effusion, edema, erythema, ecchymosis, or lesions. Neurovascularly intact. Tenderness present along the {{medial* lateral med ial and lateral}} joint line. ROM is from 0-120 degrees. Mild crepitus noted. Stability intact with anterior, posterior, and varus/valgus stress at both 0 and 30 degrees of flexion. Positive flexion pinch and Steinmann's. 5/5 strength. Calf/leg compartments soft and compressible. X-rays ordered, obtained and reviewed at [facility] previously include{{4 views of bilateral knees.*}} Images reveal mild to moderate osteoarthritis of the medial and patellofemoral compartments. No acute fracture or lesion. MRI of bilateral knees performed at [place] on August 21, 2024 have been independently reviewed. MRI of the right knee reveals no evidence for a meniscus or cruciate ligament tear. Degenerative changes are present in the knee, most notably in the lateral compartment. MRI of the left knee suggest free edge fraying of the body posterior third junction of the lateral meniscus. Cruciate ligaments are intact. Mild degenerative changes are present in the knee. IMPRESSION: {{Right Left Bilatera l*}} knee osteoarthritis, free edge fraying left lateral meniscus PLAN: The MRI results have been reviewed with the patient along with conservative treatment options. She has already failed rest, activity modification, oral medication, bracing, and physical therapy. I encouraged her to keep up with the home exercise program she learned from therapy. As indicated above, she has been having issues with fluctuating glucose levels. She has noticed diminishing return from cortisone injections, therefore I suggested that she not repeat these injections. She is interested in trying viscosupplementation. We will obtain authorization through her insurance. All questions answered. Rabia Bush PA-C [address], [place], [address], [facility] - [facility] 09/24/2024 12:20:17 OBGyn Episode No OBEpisode recorded.
[2024-10-22 10:21] LABS: Basophils Absolute Auto 0.1 X10*3/uL (0.0-0.2); Basophils Percent Auto 0.7 % (0-2); Eosinophils Absolute Auto 0.2 X10*3/uL (0.0-0.4); Eosinophils Percent Auto 2.5 % (0-4); Hematocrit 41.1 % (37.0-47.0); Hemoglobin 13.1 g/dl (12.0-16.0); Imm Gran Abs Auto 0.03 X10*3/uL (0.00-0.03); Imm Gran Pct Auto 0.4 % (0.0-0.4); Lymphocytes Absolute Auto 1.6 X10*3/uL (1.2-4.9); Lymphocytes Percent Auto 21.5 % (20-40); Mean Corpuscular HGB Conc 31.9 g/dl (31.0-35.0); Mean Corpuscular Hemoglobin 30.3 pg (27.0-33.0); Mean Corpuscular Volume 94.9 fL (80.0-98.0); Monocytes Absolute Auto 0.5 X10*3/uL (0.1-1.2); Monocytes Percent Auto 6.5 % (2-11); Neutrophils Absolute Auto 5.2 x10*3/uL (2.0-8.3); Neutrophils Percent Auto 68.4 % (45-73); Platelet Count 286 X10*3/uL (160-400); Red Blood Count 4.33 X10*6/uL (4.20-5.50); Red Cell Distribution Width 12.6 % (11.0-16.0); White Blood Count 7.5 X10*3/uL (4.8-10.8)
[2024-10-22 10:30] LABS: Estimated Average Glucose 114 mg/dL; Hemoglobin A1C 129.0517 umol/L; Hemoglobin A1c % 5.6 % (<6.0); Total Hemoglobin (HGBA1C) 3428.9287 umol/L
[2024-10-22 10:41] LABS: Alanine Aminotransferase 22 U/L (0-31); Alkaline Phosphatase 114 U/L (39-117); Anion Gap 11 (12-20); Aspartate Amino Transferase 24 U/L (5-31); Bilirubin Total 0.4 mg/dL (0.0-1.0); Blood Urea Nitrogen 14 mg/dL (9-16); C Reactive Protein 2.32 mg/dL (< or = 0.50); Carbon Dioxide 28 mmol/L (22-29); Chloride 104 mmol/L (96-108); Cholesterol 146 mg/dL (<200); Estimated Glomerular Filt Rate > 60; Glucose Random 98 mg/dL (60-115); HDL Cholesterol 63 mg/dL (>40); Iron 77 mcg/dL (30-160); LDL Cholesterol Calculated 74 mg/dL (<100); Percent Iron Saturation 22 % (15-50); Potassium 3.7 mmol/L (3.3-5.1); Sodium 139 mmol/L (135-145); Total Iron Binding Capacity 343 mcg/dL (228-428); Total Protein 8.1 g/dL (6.5-8.0); Triglycerides 49 mg/dL (<150); Unsaturated Iron Binding 266 ug/dL
[2024-10-22 11:13] LABS: Vitamin B12 426 pg/mL (200-900)
[2024-10-22 11:14] LABS: Ferritin 23 ng/mL (10-250); TSH reflex Free T4 2.13 uIU/mL (0.32-4.0); Vitamin D 25-OH Total 21.8 ng/mL (>30)
[2024-10-22 11:17] LABS: Insulin 11 uU/mL (2-29)
[2024-10-25 12:28] LABS: Zinc 55 mcg/dL (60-130)
[2024-10-26 16:13] LABS: Vitamin A 33 mcg/dL (38-98)
[2024-10-30 15:58] LABS: Vitamin B1 12 nmol/L (8-30)
== END 2024-10-22 09:09 | disposition home or self-care (01) ==
LOC: HO.LAB 09:08
PROVIDERS: Visit Provider Physician Assistant Surgical
DX: Z98.84 Bariatric surgery status (principal)
CPT/HCPCS: 36415; 80053; 80061; 82306; 82607; 82728; 82746; 83036; 83525; 83540; 84425; 84443; 84590; 84630; 85025; 86140

== ENCOUNTER 2024-12-03 10:51 | Outpatient (AMB) | payer OTHER, SELFPAY ==
--- NOTE | 2024-12-03 10:54 | A.OFFVIS_ITS ---
VS Expanded 12/03/24 11:00 BP 108/62 Blood Pressure Location Rt brachial Blood Pressure Position Sitting Pulse 81 Pulse Source Pulse Oximeter Temp 97.2 F Temperature Source Temporal Artery Scan Pulse Oximetry 97 Oxygen Delivery Method Room Air Height 5 ft 5 in Weight 237 lb 9.6 oz BMI 39.5 Body Fat % 48.7 Body Fat Mass 115.8 Fat Free Mass 121.6 Visceral Fat Rating 15.0 Body Water % 36.4 Body Water Mass 86.4 Muscle Mass/Score 115.6 Basal Metabolic Rate/Score 1,726 Intake Visit Reasons: (OV) S/P LRYGB 11/24/16 Allergies bupropion [BUPROPION] Allergy (Unknown, Verified 09/16/24 11:30) UNKNOWN ibuprofen Allergy (Unknown, Verified 09/16/24 11:30) Stomach pain NSAIDS (Non-Steroidal Anti-Inflamma [NSAIDS (NON-STEROIDAL ANTI-INFLAMMA] Allergy (Unknown, Verified 09/16/24 11:30) GI UPSET BuPROPion HCl Allergy (Unknown, Uncoded 07/18/23 12:39) Unknown Medication List - Last Reconciled 12/03/24 by TRES Acosta albuterol sulfate 90 mcg/actuation (ProAir HFA) 2 puffs inhalation Q6H PRN aripiprazole 10 mg PO BEDTIME cefuroxime axetil 500 mg PO BID 7 days cholecalciferol (vitamin D3) 50 mcg PO DAILY clonidine 1 patch transdermal QWEEK duloxetine 60 mg PO DAILY esomeprazole magnesium 40 mg PO DAILY fluticasone furoate 50 mcg/actuation inhalation gabapentin 300 mg PO BEDTIME hydroxyzine HCl 25 mg PO BID PRN montelukast (Singulair) 10 mg PO BEDTIME uvcgmargdeqs-zma-uusx-FA-vit K 45 mg iron- 800 mcg-120 mcg (Bariatric Multivitamins) caps PO sucralfate (Carafate) 1 g PO QIDACHS vitamin A palmitate 10,000 units PO DAILY zinc gluconate 30 mg PO DAILY HPI Comments Details: This?is a?58?yo female who is s/p RYGB 11/24/2016. Weight at last visit on 09/16/2024 was 239.4 pounds with a BMI of 39.8, weight today is 237.6 pounds, representing a 1.8 pound weight loss with a BMI today of 39.5.? On Nexium and carafate. Pt reports she was hospitalized at [facility] since last OV, mid September- threw up a huge blood clot , had endoscopy but reportedly no bleeding was found at the time, but very inflamed. Currently says she vomits 2x/day, a lot of acid reflux. Reports previous history of Smalls's esophagus. Also had closure of PFO, pt continues to have some SOB. Present meal plan includes: 5-7am Appiphany shake 9-11am Pure protein bar 1-3pm Viralize 4pm meal- 4f/4f Have you been diagnosed with reflux (GERD)? yes Score 0-5: 0=no symptoms, 1=noticeable but not bothersome (slight or occasional), 2=noticeable, bothersome but not daily, 3=bothersome and daily, 4=affects daily activities, 5=incapacitating, unable to do daily activities How bad is the heartburn: 5 Heartburn when lying down: 5 Heartburn when standing up: 4 Heartburn after meals: 5 Does heartburn change your diet: 5 Does heartburn wake you up from sleep: 5 Do you have difficulty swallowin Do you have pain with swallowin If you take medication for reflux, does this affect your daily life: 0 Total score: 31 PFSH Medical History GERD (gastroesophageal reflux disease) History of herniated intervertebral disc Surgical History Obesity History of abdominoplasty History of bypass gastroenterostomy History of removal of laparoscopic gastric banding device History of knee surgery History of laparoscopic appendectomy History of bilateral tubal ligation Hx of laparoscopic gastric banding History of bilateral breast reduction surgery Family History Father Stroke Mother Dementia Alzheimer disease Cancer Sister Dementia Asthma Epilepsia Sister Lupus Sister Cancer Sister No problems noted. Sister Acute rheumatic arthritis Fibromyalgia Brother No problems noted. Brother Back problem Hypertension Acute depression Social History Alcohol intake: never Patient Tobacco Use Status: Never used Tobacco Assessment & Plan Assessment & Plan (1) History of Shira-en-Y gastric bypass: Code(s): Z98.84 - Bariatric surgery status Category: Surgical (2) Vomiting: Code(s): R11.10 - Vomiting, unspecified Category: Medical (3) Obesity: Code(s): E66.9 - Obesity, unspecified Category: Surgical Plan Pt continues to have vomiting with solid foods. This happens most often with meats, rice. She reports she can tolerate liquids and protein shakes/bars well as well as eggs/GY/CC. Recommended meal plan of 2 shakes, 1 bar, and 1 meal 4f/4f per day. Considering her recent hospitalization for GI bleeding will ask Dr. Rodriguez if repeat endoscopy is warranted. Increase PPI to BID, carafate to QID. Recent labs reviewed, vitamin levels previously supplemented. Medications: Changed From esomeprazole magnesium 40 mg PO DAILY 90 caps 3RF To esomeprazole magnesium 40 mg PO BID 90 caps 3RF Refilled sucralfate (Carafate) 1 g PO QIDACHS 30 tabs 3RF Discontinued cefuroxime axetil Discontinued Reason: Doctor's Order 500 mg PO BID 7 days 14 tabs 0RF
[2024-12-03 11:00] VITALS: BP 108/62; PULSE 81; TEMP 36.2; O2SAT 97; BMI 39.5
--- OUTSIDE RECORDS SUMMARY | 2024-12-03 13:17 | XMS_ITS | Clinical Summary ---
Author Organization 175 [facility] Address [address] [place] [address] Phone Care Team Providers Care Boat Builder Name Role Phone Rick Hatch MD Primary Care Provider Allergies Active Allergy Reactions Criticality Noted Date Comments Zolpidem Sleep Issues 10/25/2024 Celecoxib 05/21/2024 Ibuprofen 12/30/2021 Naproxen Sodium 12/30/2021 Medications acarbose (PRECOSE) 25 mg tablet TAKE 1 TABLET BY MOUTH THREE TIMES DAILY Active acetaminophen (TYLENOL) 500 mg tablet Take 1 Tablet by mouth. 4 Active albuterol 2.5 mg /3 mL (0.083 %) nebulizer solution Take 3 mL (2.5 mg total) by nebulization. Active apixaban (ELIQUIS) 5 mg tablet Take by mouth. Activ e atorvastatin (LIPITOR) 40 mg tablet Take 1 tablet (40 mg total) by mouth 1 (one) time each day. Active cetirizine (ZyrTEC) 10 mg tablet Take by mouth 1 (one) time each day. Active cloNIDine (CATAPRES) 0.1 mg tablet Take 1 Tablet by mouth. 4 Active escitalopram (LEXAPRO) 20 mg tablet Take 1 tablet (20 mg total) by mouth 1 (one) time each day in the morning. Active esomeprazole (NexIUM) [address] capsule Take 40 mg by mouth every morning (before breakfast). Active furosemide (LASIX) 20 mg tablet Take 2 tablets (40 mg total) by mouth 1 (one) time each day. 3 Active gabapentin (NEURONTIN) 800 mg tablet Take 1 Tablet by mouth. 3 Active montelukast (SINGULAIR) 10 mg tablet Take 1 tablet (10 mg total) by mouth. at bedtime Active prazosin (MINIPRESS) 5 mg capsule Take 1 capsule (5 mg total) by mouth. 4 Active Carafate 100 mg/mL suspension Take 10 mL (1 g total) by mouth 4 (four) times a day. 4 Active tiotropium (SPIRIVA) 18 mcg per inhalation capsule Place 1 capsule (18 mcg total) into inhaler and inhale. 4 Active cariprazine (VRAYLAR) 4.5 mg capsule Take by mouth. Acti ve topiramate (TOPAMAX) 100 mg tablet Take 1 tablet (100 mg total) by mouth 2 (two) times a day. 4 Active cholecalciferol (VITAMIN D-3) 25 mcg (1,000 unit) capsule TAKE 1 CAPLET BY MOUTH DAILY 4 Active Vitamins B Complex tablet Take 1 tablet by mouth 1 (one) time each day. 4 Active FreeStyle Lancets 28 gauge lancets USE ONCE A DAY 4 Active FreeStyle Les 2 Sensor kit EVERY 14 DAILY USE S DIRECTED FOR TYPE 2 DIABETES MELLITUS 4 Active blood sugar diagnostic (FreeStyle Lite Strips) test strip USE ONCE A DAY 4 Active azelastine (ASTELIN) 137 mcg (0.1 %) nasal spray Administer 2 sprays into each nostril 2 (two) times a day. 4 Active levalbuterol (XOPENEX HFA) 45 mcg/actuation inhaler 2 puffs every 6 (six) hours. 4 Active ProChamber inhaler USED DIRECTED 4 Active Active Problems Problem Noted Date Diagnosed Date Hematemesis 10/25/2024 Lower extremity pain, left 10/25/2024 [facility] 08/07/2024 Low back pain 08/02/2024 [...] been having issues with her knees, saw [facility] orthopedics Dr. Lopez, he had offered her [...] block 12/22/2017 Overview (08/07/2024): Per EKG at [facility] ER 12/22/17 Costochondritis 07/05/2012 Benign mammary dysplasia 01/03/2011 Overview (08/07/2024): epidermal inclusion cyst r axilla documented by u/s core bx 3-23-11 Mastodynia 12/02/2010 Smalls's esophagus with esophagitis 06/15/2006 Overview (08/07/2024): No dysplasia, repeat EGD in POSTOPERATIVE DIAGNOSES: 1. Symptomatic cholelithiasis. 2. Hiatal hernia with reflux disease. PROCEDURES: 1. Laparoscopic repair hiatal hernia with Hill procedure. 2. Laparoscopic cholecystectomy. SURGEON: Alvino Torres M.D. SPRAY UNIT FEEDER: Soy Chapman M.D.EGD 09/02/11 by Maria C Nair MD: Grade 3 esophagitis with reflux esophagitis. [...] Encounters Date Type Department Care Team Description 10/29/2024 Telephone Gastroenterology - [address] [facility] [address] [facility] [address] [place] [address] Tonie Desai [place] 10/28/2024 8:33 AM EST Anesthesia Event [facility] Endoscopy [address] [place] [address] Ermias Lora MD 10/25/2024 3:37 PM EST - 10/28/2024 11:40 AM EST Hospital Encounter [facility] Urology Unit [address] [place] [address] Kurt Ruvalcaba MD Nasser, Nada S, MD Kela, Kashyap Devendrabhai, MD Gastrointestinal hemorrhage associated with other gastritis (Primary Dx); Acute upper GI bleed; Lower extremity pain, left Discharge Disposition: Home or Self Care 10/03/2024 1:00 PM EST Office Visit Neurosurgery [address] [address] Loly Forrest PA Bilateral carpal tunnel syndrome (Primary Dx); Chronic bilateral low back pain with bilateral sciatica 09/19/2024 9:02 AM EST - 09/19/2024 11:59 PM EST Hospital Encounter [facility] MRI [address] [place] [address] Chronic bilateral low back pain with bilateral sciatica Discharge Disposition: Home or Self Care 09/12/2024 Telephone Neurosurgery [address] [address] Crystal Trejo [place] [facility]ment [id number] L/Spine MRI faxed over to [facility]. Will contact pt w/appt.) 09/10/2024 1:00 PM EST Office Visit Neurosurgery [address] [address] Loly Forrest PA Bilateral carpal tunnel syndrome (Primary Dx); Chronic bilateral low back pain with bilateral sciatica from Last 3 Months Immunizations Name Administration [...] drink = 0.6 oz pur e alcohol) Interpersonal Safety Answer Date Record ed Physical Abuse 10/25/2024 Verbal Abuse 10/25/2024 Comments Unknown Sex and Gender Information Value Date Recorded Sex Assigned at Not on file Legal Sex Female 5:08 AM EST Gender Identity Not on file Sexual Orientation Not on file Obstetrics History Last Filed Vital Signs Vital Sign Reading Time Taken Comments Blood Pressure 142/85 10/28/2024 9:05 AM EST Pulse 68 10/28/2024 9:05 AM EST Temperature 36.8 ??C (98.2 ??F) 10/28/2024 9 :05 AM EST Respiratory Rate 16 10/28/2024 9:05 AM EST Oxygen Saturation 97% 10/28/2024 9:0 5 AM EST Inhaled Oxygen Concentration - - Weight 112 kg (248 lb) 10/27/2024 2:14 PM EST per epic record Height 165.1 cm (5' 5 ) 10/25/2024 9:52 PM EST Body Mass Index 41.27 10/25/2024 9:52 PM EST Plan of Treatment Upcoming Encounters Date Type Department Care Team (Late st Contact Info) Description 02/11/2025 8:30 AM EDT Consult Bariatric Surgery - [place] [address] [facility] [address] [place] [phone] Alvino Torres MD [address] [facility] [address] [place] [address] Health Maintenance Due Date Last Done Comments Breast Cancer Screening 1965 Hepatitis B Vaccines (1 of 3 - 19+ 3-dose series) 1984 Cervical Cancer Screening: Pap Smear 1986 Pneumococcal Vaccine: 50+ Years (3 of 3 - PCV20 or PCV21) 07/05/2022 07/05/2017, 05/18/2015, 06/30/2011 Pneumococcal Vaccine: Pediatrics (0 to 5 Years) and At-Risk Patients (6 to 64 Years) (3 of 3 - PCV20 or PCV21) 07/05/2022 07/05/2017, 05/18/2015, 06/30/2011 Cholesterol Screening (Lipid Panel) 08/28/2022 Colorectal Cancer Screening: Colonoscopy 08/28/2022 Depression Screening 08/28/2022 HIV Screening 08/28/2022 Hepatitis C Screening 08/28/2022 Social Influencers of Health Screening 08/28/2022 COVID-19 Vaccine ( season) 2024 10/18/2023, 09/01/2021, 01/15/2021, Additional history exists Hypertension/CHF/CAD Annual BMP Blood Test 10/26/2025 10/26/2024, 10/25/2024 DTaP,Tdap,and Td Vaccines (3 - Td or Tdap) 10/20/2032 10/20/2022, 12/12/2012 Zoster Vaccines Completed 03/08/2023, 11/07/2019 Influenza Vaccine Completed 07/24/2024, , 10/20/2022, Additional history exists HIB Vaccines Aged Out No longer eligi [...] patient's age to complete this topic Meningococcal B Vacine Aged Out No lo nger eligible based on patient's age to complete this topic RSV Immunization Patients Under 20 months Aged Out No longer eligible based on patient's age to complete this topic Varicella Vaccines Aged Out No longer eligible based on patient's age to complete this topic Procedures Procedure Name Priority Date/Time Associated Diagnosis Comments EGD Routine 10/28/2024 8:44 AM EST TISSUE EXAM Routine 10/28/2024 8:40 AM EST Gastrointestinal hemorrhage associated with other gastritis Acute upper GI bleed Lower extremity pain, left ECG ANNOTATED 10/28/2024 SST - GOLD Routine 10/27/2024 12:23 PM EST EXTRA TUBES Routine 10/27/2024 12:23 PM EST HEMOGLOBIN AND HEMATOCRIT Routine 10/27/2024 12:23 PM EST TYPE AND SCREEN Routine 10/26/2024 3:28 PM EST HEMOGLOBIN AND HEMATOCRIT STAT 10/26/2024 3:23 PM EST VAS US DUPLEX LOWER EXT VENOUS LEFT Routine 10/26/2024 7:20 AM EST Lower extremity pain, left MAGNESIUM Add-On 10/26/2024 6:16 AM EST IRON AND TIBC Add-On 10/26/2024 6:16 AM EST LAVENDER - EDTA Routine 10/26/2024 6:16 AM EST SST - GOLD Routine 10/26/2024 6:16 AM EST EXTRA TUBES Routine 10/26/2024 6:16 AM EST LACTATE Routine 10/26/2024 6:16 AM EST CBC WITH AUTO DIFFERENTIAL Routine 10/26/2024 5:23 AM EST CBC AND DIFFERENTIAL Routine 10/26/2024 5:23 AM EST BASIC METABOLIC PANEL Routine 10/26/2024 5:23 AM EST CPAP NIV Routine 10/26/2024 12:04 AM EST COMPLETE BLOOD COUNT Routine 10/25/2024 11:55 PM EST HEMOGLOBIN AND HEMATOCRIT Routine 10/25/2024 7:36 PM EST HEPATIC FUNCTION PANEL STAT 10/25/2024 7:36 PM EST MAGNESIUM STAT 10/25/2024 7:36 PM EST BASIC METABOLIC PANEL STAT 10/25/2024 7:36 PM EST TROPONIN I HIGH SENSITIVITY STAT 10/25/2024 5:27 PM EST CBC WITH AUTO DIFFERENTIAL STAT 10/25/2024 4:09 PM EST PROTHROMBIN TIME WITH INR STAT 10/25/2024 4:09 PM EST CBC AND DIFFERENTIAL STAT 10/25/2024 4:09 PM EST ECG 12-LEAD STAT 10/25/2024 3:35 PM EST MR LUMBAR SPINE WO CONTRAST Routine 09/19/2024 10:12 AM EST Chronic bilateral low back pain with bilateral sciatica from Last 3 Months Results * EGD Anesthesia - MAC; SP ENDOSCOPY (10/28/2024 8:44 AM EST) Anatomical Region Laterality Modality Endoscopy 10/28/2024 8:32 AM EST Impressions 10/28/2024 8:49 AM EST - Some irratation was noted on the epiglottis. ? - Small hiatal hernia. ? - Esophageal mucosal changes consistent with ? short-segment Smalls's esophagus. Biopsied. ? - A gastrojejunostomy was found, characterized by ? healthy appearing mucosa. ? - Normal examined jejunum. Recommendation: ?- Await pathology results. ? - Resume Eliquis (apixaban) at prior dose today. ? - Follow up with [facility] Gastroenterology as ? scheduled. Narrative 10/28/2024 8:49 AM EST [facility] GI Patient Name: Amiee Yanez Procedure Date: 10/28/2024 8:32 AM Date of : 1965 Age: 58 Gender: Female Note Status: Finalized Attending MD: Barbie Seals MD, Procedure Date No Time: 10/28/2024 Procedure: ? Upper GI endoscopy Indications: ? Hematemesis Providers: ? Barbie Seals MD Referring MD: ? Medicines: ? Propofol per Anesthesia Complications: ? No immediate complications. Estimated Blood Loss: ? Estimated blood loss: none. Procedure: ? Pre-Anesthesia Assessment: ? - ASA Grade Assessment: III - A patient with severe ? systemic disease. ? After obtaining informed consent, the endoscope was ? passed under direct vision. Throughout the procedure, ? the patient's blood pressure, pulse, and oxygen ? saturations were monitored continuously.The Olympus ? Gastroscope was introduced through the mouth, and ? advanced to the second part of duodenum. The upper GI ? endoscopy was accomplished without difficulty. The ? patient tolerated the procedure well. Findings: ?Some irratation was noted on the epiglottis. ? A small hiatal hernia was present. ? There were esophageal mucosal changes consistent with ? short-segment Smalls's esophagus present in the ? distal esophagus. The maximum longitudinal extent of ? these mucosal changes was 1 cm in length. Mucosa was ? biopsied with a cold forceps for histology in a ? targeted manner at the gastroesophageal junction. One ? specimen bottle was sent to pathology. ? Evidence of a gastrojejunostomy was found in the ? cardia. This was characterized by healthy appearing ? mucosa. ? The examined jejunum was normal. Procedure Code(s): ? --- Professional --- ? 32381, Esophagogastroduodenoscopy, flexible, ? transoral; with biopsy, single or multiple Diagnosis Code(s): ? --- Professional --- ? K44.9, Diaphragmatic hernia without obstruction or ? gangrene ? Z98.0, Intestinal bypass and anastomosis status ? K22.89, Other specified disease of esophagus CPT copyright 202 [employer]. All rights reserved. The codes documented in this report are preliminary and upon finisher hot strip review may be revised to meet current compliance requirements. Barbie Seals MD Barbie E Seals, MD 10/28/2024 8:49:31 AM This report has been signed electronically.Barbie Seals MD Number of Addenda: 0 Note Initiated On: 10/28/2024 8:32 AM Scope In: Scope Out: ? Endoscopy Department at [facility] - [address] [place] [address], ? [place] [address] Procedure Note Barbie Seals MD - 10/28/2024 [facility] GI Patient Name: Aimee Yanez Procedure Date: 10/28/2024 8:32 AM Date of : 1965 Age: 58 Gender: Female Note Status: Finalized Attending MD: Barbie Seals MD, Procedure Date No Time: 10/28/2024 Procedure: Upper GI endoscopy Indications: Hematemesis Providers: Barbie Seals MD Referring MD: Medicines: Propofol per Anesthesia Complications: No immediate complications. Estimated Blood Loss: Estimated blood loss: none. Procedure: Pre-Anesthesia Assessment: - ASA Grade Assessment: III - A patient with severe systemic disease. After obtaining informed consent, the endoscope was passed under direct vision. Throughout theprocedure, the patient's blood pressure, pulse, and oxygen saturations were monitored continuously.The Olympus Gastroscope was introduced through the mouth, and advanced to the second part of duodenum. The upperGI endoscopy was accomplished without difficulty. The patient tolerated the procedure well. Findings: Some irratation was noted on the epiglottis. A small hiatal hernia was present. There were esophageal mucosal changes consistentwith short-segment Smalls's esophagus present in the distal esophagus. The maximum longitudinal extentof these mucosal changes was 1 cm in length. Mucosawas biopsied with a cold forceps for histology in a targeted manner at the gastroesophageal junction.One specimen bottle was sent to pathology. Evidence of a gastrojejunostomy was found in the cardia. This was characterized by healthy appearing mucosa. The examined jejunum was normal. Procedure Code(s): --- Professional --- 36043, Esophagogastroduodenoscopy, flexible, transoral; with biopsy, single or multiple Diagnosis Code(s): --- Professional --- K44.9, Diaphragmatic hernia without obstruction or gangrene Z98.0, Intestinal bypass and anastomosis status K22.89, Other specified disease of esophagus CPT copyright 2020 [employer]. All rights reserved. The codes documented in this report are preliminary and upon finisher hot strip reviewmay be revised to meet current compliance requirements. Barbie Seals MD 10/28/2024 8:49:31 AM This report has been signed electronically.Barbie Seals MD Number of Addenda: 0 Note Initiated On: 10/28/2024 8:32 AM Scope In: Scope Out: Endoscopy Department at [facility] - [address] [place] [phone] IMPRESSION: - Some irratation was noted on the epiglottis. - Small hiatal hernia. - Esophageal mucosal changes consistent with short-segment Smalls's esophagus. Biopsied. - A gastrojejunostomy was found, characterized by healthy appearing mucosa. - Normal examined jejunum. Recommendation: - Await pathology results. - Resume Eliquis (apixaban) at prior dose today. - Follow up with [facility] Gastroenterology as scheduled. Barbie Seals MD GI~PROCEDURE ORDERABLES Final Result * Tissue exam (10/28/2024 8:40 AM EST) Final Diagnosis A. Esophagus, distal biopsies: - Smalls's mucosa. - Negative for dysplasia. 10/29/2024 10:35 AM [facility] Gross Description A. Esophagus, distal biopsies: Labeled distal esophagus . Received in formalin, are three irregular soft to rubbery, white-pink to red tissue fragments, approximately ranging from 0.4 cm to 0.6 cm in greatest diameters, which are wrapped in paper and submitted in toto in one cassette, three pieces, multiple levels. dvb/DG 10/29/2024 10:35 AM [facility] Disclaimer Unless otherwise specified, all tissue is 10% NB formalin fixed and paraffin embedded. 10/29/2024 10:35 AM [facility] Tissue Esophageal structure / Unknown 10/28/2024 8:40 AM EST 10/28/2024 11:13 AM EST Barbie Seals MD LAB PATHOLOGY ORDERABLES Final Result Performing Organization Address [facility]/ZIP Co de Phone Number [facility] [address] [place] [address], [place] [phone] * ECG-Annotated (10/28/2024) us Provider Onbase MD ECG ORDERABLES Final Result * SST tube (10/27/2024 12:23 PM EST) Only the most recent of2 resultswithin the time period is included. Extra Tube Hold for add-ons. 10/27/2024 2:01 PM EST [facility] Comment:Auto resulted. Blood Venous blood specimen / Unknown Venipuncture / Unknown 10/27/2024 12:23 PM EST 10/27/2024 12:29 PM EST Ravi Romero MD LAB BLOOD ORDERABLE S Final Result Performing Organization Address City/[facility]/ZIP Co de Phone Number [facility] [address] [place] [address], * Hemoglobin and hematocrit (10/27/2024 12:23 PM EST) Only the most recent of3 resultswithin the time period is included. Hemoglobin 12.8 11.5 - 16.0 g/dL LAB HEMETOLOGY METHOD 10/27/2024 12:40 PM EST [facility] Hematocrit 42.0 35.0 - 47.0 % LAB HEMETOLOGY METHOD 10/27/2024 12:40 PM EST [facility] Blood Venous blood specimen / Unknown Venipuncture / Unknown 10/27/2024 12:23 PM EST 10/27/2024 12:28 PM EST Ravi Romero MD LAB BLOOD ORDERABLE S Final Result Performing Organization Address [facility]/ZIP Co de Phone Number [facility] [address] [place] [address], [place] [phone] * Type and screen (10/26/2024 3:28 PM EST) ABO Group O 10/26/2024 4:33 PM EST [facility] Rh Type Positive 10/26/2024 4:33 PM EST [facility] Antibody Screen Negative 10/26/2024 4:33 PM EST [facility] Blood Venous blood specimen / Unknown Venipuncture / Unknown 10/26/2024 3:28 PM EST 10/26/2024 3:37 PM EST Lavern Salgado MD LAB BLOOD BANK TEST ORDERABLES Final Result Performing Organization Address [facility]/ZIP Co de Phone Number [facility] [address] [place] [address], [place] [phone] * Vascular US duplex lower extremity venous left (10/26/2024 7:20 AM EST) Anatomical Region Laterality Modality Vascular, Abdomen Ultrasound 10/26/2024 9:30 AM EST Impressions 10/26/2024 9:41 AM EST The gastrocnemius veins are not seen. No visible left lower extremity deep venous thrombosis. -------- FINAL REPORT -------- Dictated By: Daren Swanson Dictated Date: 10/26/2024 09:30 ET Assigned Physician: Daren Swanson Reviewed and Electronically Signed By: Daren Swanson Signed Date: 10/26/2024 09:41 ET Workstation ID: [id number] Transcribed By: Self Edit Transcribed Date: 10/26/2024 09:40 ET Narrative 10/26/2024 9:41 AM EST Left lower extremity deep vein thrombosis study, 10/26/2024. HISTORY: edema pain in extremities lle pain and swelling. COMPARISON: None. TECHNIQUE: Grayscale, color Doppler, and spectral Doppler ultrasound evaluation of the deep venous structures of the left lower extremity. ??Augmentation and compression maneuvers were performed. FINDINGS: The gastrocnemius veins are not seen. ??The other deep venous structures of the left lower extremity demonstrate normal compressibility with normal color and spectral Doppler flow and a normal response to augmentation maneuvers. Procedure Note Daren Swanson MD - 10/26/2024 Left lower extremity deep vein thrombosis study, 10/26/2024. HISTORY: edema pain in extremities lle pain and swelling. COMPARISON: None. TECHNIQUE: Grayscale, color Doppler, and spectral Doppler ultrasoundevaluation of the deep venous structures of the left lower extremity.Augmentation and compression maneuvers were performed. FINDINGS: The gastrocnemius veins are not seen. The other deep venous structures ofthe left lower extremity demonstrate normal compressibility with normalcolor and spectral Doppler flow and a normal response to augmentationmaneuvers. IMPRESSION: The gastrocnemius veins are not seen. No visible left lower extremity deep venous thrombosis. -------- FINAL REPORT -------- Dictated By: Daren Swanson Dictated Date: 10/26/2024 09:30 ET Assigned Physician: Daren Swanson Reviewed and Electronically Signed By: Daren Swanson Signed Date: 10/26/2024 09:41 ET Workstation ID: [id number] Transcribed By: Self Edit Transcribed Date: 10/26/2024 09:40 ET us Morelia JOSHUA CV VASCULAR PROCEDURES Final Result * Lavender tube (10/26/2024 6:16 AM EST) Extra Tube Hold for add-ons. 10/26/2024 8:01 AM EST [facility] Comment:Auto resulted. Blood Venous blood specimen / Unknown Venipuncture / Unknown 10/26/2024 6:16 AM EST 10/26/2024 6:32 AM EST Kurt Ruvalcaba MD LAB BLOOD ORDERABLES Final Result [facility] [address] [place] [address], [place] [phone] * Iron and TIBC (10/26/2024 6:16 AM EST) Iron 69 40 - 150 mcg/dL LAB CHEMISTRY METHOD 10/26/2024 12:35 PM EST [facility] TIBC 327 250 - 450 mcg/dL LAB CHEMISTRY METHOD 10/26/2024 12:35 PM EST [facility] Iron Saturation 21 15 - 50 % LAB CHEMISTRY METHOD 10/26/2024 12:35 PM EST [facility] Blood Venous blood specimen / Unknown Venipuncture / Unknown 10/26/2024 6:16 AM EST 10/26/2024 6:32 AM EST Lavern Salgado MD LAB BLOOD ORDERABLES Final Resu lt Performing Organization Address City/[facility]/ZIP Co de Phone Number [facility] [address] [place] [address], [place] [phone] * Magnesium (10/26/2024 6:16 AM EST) Only the most recent of2 resultswithin the time period is included. Magnesium 2.1 1.9 - 2.6 mg/dL LAB CHEMISTRY METHOD 10/26/2024 12:35 PM EST [facility] Blood Venous blood specimen / Unknown Venipuncture / Unknown 10/26/2024 6:16 AM EST 10/26/2024 6:32 AM EST us Lavern Salgado MD LAB BLOOD ORDERABLES Final Resu lt [facility] [address] [place] [address], [place] [phone] * Lactate (10/26/2024 6:16 AM EST) [facility] Lactate 0.8 0.4 - 2.0 mmol/L LAB CHEMISTRY METHOD 10/26/2024 7:01 AM [facility] Blood Venous blood specimen / Unknown Venipuncture / Unknown 10/26/2024 6:16 AM EST 10/26/2024 6:24 AM EST us Morelia JOSHUA LAB BLOOD ORDERABLES Final Re sult [facility] [address] [place] [address], [place] [phone] * (ABNORMAL) CBC auto differential (10/26/2024 5:23 AM EST) Only the most recent of2 resultswithin the time period is included. [facility] WBC 6.7 4.8 - 10.8 K/mcL LAB HEMETOLOGY METHOD 10/26/2024 6:59 AM [facility] RBC 3.70(L) 3.80 - 4.80 M/mcL LAB HEMETOLOGY METHOD 10/26/2024 6:59 AM [facility] Hemoglobin 11.2(L) 11.5 - 16.0 g/dL LAB HEMETOLOGY METHOD 10/26/2024 6:59 AM [facility] Hematocrit 35.9 35.0 - 47.0 % LAB HEMETOLOGY METHOD 10/26/2024 6:59 AM [facility] MCV 97.0 79.0 - 98.0 FL LAB HEMETOLOGY METHOD 10/26/2024 6:59 AM [facility] MCH 30.3 27.0 - 32.0 pcg LAB HEMETOLOGY METHOD 10/26/2024 6:59 AM [facility] MCHC 31.2(L) 32.0 - 37.0 g/dL LAB HEMETOLOGY METHOD 10/26/2024 6:59 AM [facility] RDW 12.7 11.0 - 15.0 % LAB HEMETOLOGY METHOD 10/26/2024 6:59 AM [facility] Platelets 260 130 - 400 K/mcL LAB HEMETOLOGY METHOD 10/26/2024 6:59 AM [facility] MPV 11.0 7.0 - 11.0 FL LAB HEMETOLOGY METHOD 10/26/2024 6:59 AM [facility] NRBC 0.0 <1.0 % LAB HEMETOLOGY METHOD 10/26/2024 6:59 AM [facility] NRBC Absolute 0.00 <0.10 K/mcL LAB HEMETOLOGY METHOD 10/26/2024 6:59 AM [facility] Neutrophils Relative 59.2 % LAB HEMETOLOGY METHOD 10/26/2024 6:59 AM [facility] Lymphocytes Relative 27.5 % LAB HEMETOLOGY METHOD 10/26/2024 6:59 AM [facility] Monocytes Relative 8.3 % LAB HEMETOLOGY METHOD 10/26/2024 6:59 AM [facility] Eosinophils Relative 4.1 % LAB HEMETOLOGY METHOD 10/26/2024 6:59 AM [facility] Basophils Relative 0.6 % LAB HEMETOLOGY METHOD 10/26/2024 6:59 AM [facility] Immature Granulocytes Relative 0.3 % LAB HEMETOLOGY METHOD 10/26/2024 6:59 AM [facility] Neutrophils Absolute 3.94 1.50 - 7.00 K/mcL LAB HEMETOLOGY METHOD 10/26/2024 6:59 AM [facility] Lymphocytes Absolute 1.83 1.00 - 5.00 K/mcL LAB HEMETOLOGY METHOD 10/26/2024 6:59 AM EST [facility] Monocytes Absolute 0.55 0.20 - 1.00 K/mcL LAB HEMETOLOGY METHOD 10/26/2024 6:59 AM EST [facility] Eosinophils Absolute 0.27 0.00 - 0.50 K/mcL LAB HEMETOLOGY METHOD 10/26/2024 6:59 AM EST [facility] Basophils Absolute 0.04 0.00 - 0.20 K/mcL LAB HEMETOLOGY METHOD 10/26/2024 6:59 AM [facility] Immature Granulocytes Absolute 0.02 0.00 - 0.03 K/mcL LAB HEMETOLOGY METHOD 10/26/2024 6:59 AM [facility] Blood Venous blood specimen / Unknown Venipuncture / Unknown 10/26/2024 5:23 AM EST 10/26/2024 6:26 AM EST us Morelia JOSHUA LAB BLOOD ORDERABLES Final Re sult [facility] [address] [place] [address], * (ABNORMAL) Basic metabolic panel (10/26/2024 5:23 AM EST) Only the most recent of2 resultswithin the time period is included. Sodium 140 133 - 145 mmol/L LAB CHEMISTRY METHOD 10/26/2024 7:18 AM [facility] Potassium 3.7 3.5 - 5.5 mmol/L LAB CHEMISTRY METHOD 10/26/2024 7:18 AM [facility] Chloride 107 96 - 110 mmol/L LAB CHEMISTRY METHOD 10/26/2024 7:18 AM [facility] CO2 29 21 - 32 mmol/L LAB CHEMISTRY METHOD 10/26/2024 7:18 AM EST [facility] Anion Gap 4 3 - 11 LAB CHEMISTRY METHOD 10/26/2024 7:18 AM [facility] Glucose 103(H) 70 - 100 mg/dL LAB CHEMISTRY METHOD 10/26/2024 7:18 AM [facility] BUN 12 5 - 25 mg/dL LAB CHEMISTRY METHOD 10/26/2024 7:18 AM [facility] Creatinine 0.83 0.50 - 1.10 mg/dL LAB CHEMISTRY METHOD 10/26/2024 7:18 AM [facility] eGFR 82 >=60 mL/min/1. 73m2 LAB CHEMISTRY METHOD 10/26/2024 7:18 AM [facility] Comment:Calculation based on the??Chronic Kidney Disease Epidemiology Collaboration (CKD-EPI) equation refit??without adjustment for race. BUN/Creatinine Ratio 14.5 LAB CHEMISTRY METHOD 10/26/2024 7:18 AM [facility] Calcium 9.1 8.5 - 10.5 mg/dL LAB CHEMISTRY METHOD 10/26/2024 7:18 AM [facility] Blood Venous blood specimen / Unknown Venipuncture / Unknown 10/26/2024 5:23 AM EST 10/26/2024 6:25 AM EST us Morelia JOSHUA LAB BLOOD ORDERABLES Final Re sult [facility] [address] [place] [address], * (ABNORMAL) Complete blood count (10/25/2024 11:55 PM EST) WBC 8.4 4.8 - 10.8 K/mcL LAB HEMETOLOGY METHOD 10/26/2024 12:34 AM [facility] RBC 4.00 3.80 - 4.80 M/mcL LAB HEMETOLOGY METHOD 10/26/2024 12:34 AM [facility] Hemoglobin 12.1 11.5 - 16.0 g/dL LAB HEMETOLOGY METHOD 10/26/2024 12:34 AM [facility] Hematocrit 38.5 35.0 - 47.0 % LAB HEMETOLOGY METHOD 10/26/2024 12:34 AM [facility] MCV 96.3 79.0 - 98.0 FL LAB HEMETOLOGY METHOD 10/26/2024 12:34 AM [facility] MCH 30.3 27.0 - 32.0 pcg LAB HEMETOLOGY METHOD 10/26/2024 12:34 AM [facility] MCHC 31.4(L) 32.0 - 37.0 g/dL LAB HEMETOLOGY METHOD 10/26/2024 12:34 AM [facility] RDW 12.6 11.0 - 15.0 % LAB HEMETOLOGY METHOD 10/26/2024 12:34 AM [facility] Platelets 268 130 - 400 K/mcL LAB HEMETOLOGY METHOD 10/26/2024 12:34 AM [facility] MPV 10.7 7.0 - 11.0 FL LAB HEMETOLOGY METHOD 10/26/2024 12:34 AM [facility] NRBC 0.0 <1.0 % LAB HEMETOLOGY METHOD 10/26/2024 12:34 AM [facility] NRBC Absolute 0.00 <0.10 K/mcL LAB HEMETOLOGY METHOD 10/26/2024 12:34 AM [facility] Blood Venous blood specimen / Unknown Venipuncture / Unknown 10/25/2024 11:55 PM EST 10/26/2024 12:29 AM EST us Morelia JOSHUA LAB BLOOD ORDERABLES Final Re sult [facility] [address] [place] [address], [place] [phone] * (ABNORMAL) Hepatic function panel (10/25/2024 7:36 PM EST) Total Protein 6.4 6.0 - 8.0 g/dL LAB CHEMISTRY METHOD 10/25/2024 8:22 PM EST [facility] Albumin 3.0(L) 3.2 - 5.0 g/dL LAB CHEMISTRY METHOD 10/25/2024 8:22 PM EST [facility] Total Bilirubin 0.3 0.0 - 1.4 mg/dL LAB CHEMISTRY METHOD 10/25/2024 8:22 PM [facility] Bilirubin, Direct 0.1 0.0 - 0.3 mg/dL LAB CHEMISTRY METHOD 10/25/2024 8:22 PM [facility] Bilirubin, Indirect 0.2 0.0 - 1.1 mg/dL LAB CHEMISTRY METHOD 10/25/2024 8:22 PM [facility] ALT (SGPT) 28 10 - 60 unit/L LAB CHEMISTRY METHOD 10/25/2024 8:22 PM [facility] AST (SGOT) 19 10 - 42 unit/L LAB CHEMISTRY METHOD 10/25/2024 8:22 PM [facility] Alkaline Phosphatase 104 42 - 121 unit/L LAB CHEMISTRY METHOD 10/25/2024 8:22 PM [facility] Blood Venous blood specimen / Unknown Venipuncture / Unknown 10/25/2024 7:36 PM EST 10/25/2024 7:57 PM EST Kurt Ruvalcaba MD LAB BLOOD ORDERABLES Final Result [facility] [address] [place] [address], [place] [phone] * Troponin I high sensitivity (10/25/2024 5:27 PM EST) [facility] High Sensitivity Troponin I <3 <=54 ng/L LAB CHEMISTRY METHOD 10/25/2024 7:18 PM EST [facility] Blood Venous blood specimen / Unknown Venipuncture / Unknown 10/25/2024 5:27 PM EST 10/25/2024 6:52 PM EST Narrative [facility] - 10/25/2024 7:18 PM EST High levels of biotin in samples may falsely decrease hsTroponin values. ??Use caution when interpreting hsTroponin results in patients taking biotin who exhibit renal impairment (eGFR <60) or in patients taking more than 20 mg/day of biotin. Rodo JOSHUA LAB BLOOD ORDERABLES Final R esult Performing Organization Address City/[facility]/ZIP Co de Phone Number [facility] [address] [place] [address], * Prothrombin time with INR (10/25/2024 4:09 PM EST) [facility] Protime 12.4 10.6 - 13.9 sec LAB COAGULATION METHOD 10/25/2024 5:04 PM EST [facility] INR 1.0 LAB COAGULATION METHOD 10/25/2024 5:04 PM EST [facility] Blood Venous blood specimen / Unknown Venipuncture / Unknown 10/25/2024 4:09 PM EST 10/25/2024 4:50 PM EST Kurt Ruvalcaba MD LAB BLOOD ORDERABLES Final Result [facility] [address] [place] [address], [place] [phone] * ECG 12 lead (10/25/2024 3:35 PM EST) [facility] Ventricular Rate ECG 59 BPM GEMUSE Atrial Rate 59 BPM GEMUSE P-R Interval 170 ms GEMUSE QRS Duration 138 ms GEMUSE Q-T Interval 440 ms GEMUSE QTc 435 ms GEMUSE P Wave [place] 35 degrees GEMUSE R [place] 11 degrees GEMUSE T [place] 21 degrees GEMUSE ECG Interpretation Sinus bradycardia Right bundle branch block Abnormal ECG When compared with ECG of 23-FEB-2022 09:09, Fusion complexes are no longer Present Vent. rate has decreased BY ??35 BPM Confirmed by ADOLPH TURNER ([id number]) on 10/25/2024 5:05:02 PM GEMUSE 10/25/2024 3:35 PM EST 10/25/2024 5:05 PM EST us Kurt Ruvalcaba MD ECG ORDERABLES Final Resul t GEMUSE * MR Lumbar Spine wo Contrast (09/19/2024 [...] Signed Date: 09/19/2024 11:28 ET Workstation ID: [id number] Transcribed By: Self Edit Transcribed Date: 09/19/2024 [...] CT abdomen and pelvis 08/17/2019. Lumbar spine [id number]/18/2018. FINDINGS: The paraspinous soft tissues are normal. 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 Health Care Decision (hx) 05/25/2010 AD BLUM DIRECTIVE Health Care Decision (hx) 05/25/2010 AD BLUM DIRECTIVE Health Care Decision (hx) 05/25/2010 AD BLUM DIRECTIVE Health Care Decision (hx) 05/25/2010 AD BLUM DIRECTIVE Health Care Decision (hx) 05/25/2010 AD BLUM DIRECTIVE Health Care Decision (hx) 05/25/2010 Sandeep Aly AD BLUM DIRECTIVE * Full Code - Default (Latest Code Status on File) Date Activated Date Inactivated Comments 10/25/2024 8:40 PM 10/28/2024 3:13 PM This is order is used when code status has not been discussed with the patient, or code status is otherwise unknown/unconfirmed To update the patient's code status, place a code status order. Do not modify or discontinue any currently active code status orders. Care Teams Boat Builder Relationship Specialty Start Date End Date Rick Hatch MD [address] [place] [phone] PCP - General 06/04/10
--- OUTSIDE RECORDS SUMMARY | 2024-12-03 13:17 | XMS_ITS | Data Portability ---
Author Organization [facility], [facility] Address [address] [place] [address] Care Team Providers Care Milling General Superintendent Name Role Phone GWEN BEDOYA Primary Care Provider Assessment No assessment recorded. Plan of Treatment Reminders Order Date Submit Date Provider Last Modified By Organization Details Last Modified Time Details Appointments None recorded. Lab None recorded. Referral None recorded. Procedures None recorded. Surgeries None recorded. Imaging MRI, knee, w/o contrast - left knee 2023 [facility] ([facility]), [address] [facility] [place], [address], 5 10:35:27 MRI, knee, w/o contrast - right knee 2023 024 [facility] ([facility]), [address], [place], [address], 5 10:36:19 Medication Orders None recorded. Patient TargetsNo targets recorded. Patient InstructionsNo instructions recorded. Reason for Referral None Reported. Results Created Date Observation Date Name Description Value Unit Range Abnormal Flag Note LastModifiedBy Organization Detail LastModifiedTime 05/24/20 24 11/07/2019 imagi ng/di agnos tic resul t No observ ation record ed. [email or web address] Not Available 04/27 23:38:07 05/24/20 24 11/07/2019 imagi ng/di agnos tic resul t No observ ation record ed. [email or web address] Not Available 04/27 23:38:07 08/23/20 24 08/21/2024 MRI, knee, w/o contr ast Yessi bowers MRI- [facility] Access ion Number : [id number] Juanis t Name: Rukhsana Fry Record Number : [id number] Date of : 1965 Date of Exam: 2023 Referr ing Physic tyshawn: Antione Bush in [facility] ([facility]) [address] [facility] [address] [facility] [place] [address] Exam: MR Knee (C-) CPT 10331 - Right Room Descri ption: [facility] Pion 3T Histor y: Bilate ral primar y osteoa rthrit is of the knee, questi on right medial menisc al tear. The patien t report s severe bilate ral medial daily knee pain for one year with swelli ng and instab ility. Histor y of prior right latera l menisc al surger y in 2019. Techni que: MRI of the RIGHT knee was perfor med withou t intrav enous contra st. Compar caridad: None. Findin gs: Joint effusi on: No joint effusi on is presen t. Postop erativ e change s seen in Hoffa' s fat pad. A small Denis' s cyst is seen. Menisc i: Intram enisca l degene rative signal is seen in the anteri or third and body of the latera l menisc us and within the body of the medial menisc us. No medial or latera l menisc al tear is seen. Tendon s and ligame nts: The ACL and PCL are intact . The collat eral ligame nts are unrema rkable . The ilioti bial band is unrema rkable . The extens or mechan ism appear s normal . Articu lar cartil age and bone: There is chondr al thinni ng in the weight bearin g portio n the latera l compar tment, most pronou nced in the centra l aspect the latera l tibial platea u where chondr al loss extend s near full-t hickne ss with adjace nt subcho ndral marrow edema. There is a high-g rade chondr al fissur e in the solar sales representative ior weight bearin g portio n the latera l femora l condyl e as well as surrou nding mild thinni ng. Articu lar cartil age in the medial compar tment appear s thin though unifor m in thickn ess withou t focal chondr al defect . Patell ofemor al cartil age appear s normal in thickn ess. There is anteri or nonspe cific subcut aneous edema. Impres abimael: 1. No eviden ce of menisc al or crucia te ligame nt tear. 2. Mild degene rative change with chondr al loss greate st over the latera l tibial platea u.. Electr onical ly Signed By: Terri Barriga ra, MD [email or web address] [facility] ([facility]) [address] [place], [address], 10/09/2024 10:35:54 08/23/20 24 08/21/2024 MRI, knee, w/o contr ast [facility] Access ion Number : [id number] Patien t Name: Rukhsana Fry Medica l Record Number : [id number] Date of : 1965 Date of Exam: 2023 Referr ing Physic tyshawn: Antione Bush in [facility]) [address] [facility] [address] [place] [address] Exam: MR Knee (C-) CPT 84340 - Left Room Descri ption: [facility] Pion 3T Histor y: Bilate ral primar y osteoa rthrit is of the knee, questi on left medial menisc al tear. The patien t report s severe bilate ral medial knee pain occurr ing daily for one year with swelli ng and instab ility. Techni que: MRI of the LEFT knee was perfor med withou t intrav enous contra st. Compar caridad: None. Findin gs: Joint effusi on: No joint effusi on is presen t. Hoffa' s fat pad is unrema rkable . There is a small Denis' s cyst. Menisc i: Intram enisca l degene ration is seen in the solar sales representative ior third of the medial menisc us with no eviden ce of extens ion to the articu lar surfac e. The latera l menisc us demons trates slight ly irregu lar contou r of the free margin at the body solar sales representative ior third juncti on (image 24 of series 4 and image 15 of series 7). Tendon s and ligame nts: The ACL and PCL are intact . The collat eral ligame nts are unrema rkable . The ilioti bial band is unrema rkable . The mynor ceps tendon is intact . There is mild thicke karla and interm ediate intras ubstan ce T2 signal of the distal patell ar tendon , sugges ting tendin opathy . Articu lar cartil age: The articu lar cartil age is normal in thickn ess. No focal defect s are seen. Bone: The bone and bone marrow are normal . Impres abimael: Irregu lar contou r of the free margin at the body solar sales representative ior third juncti on of the latera l menisc us, sugges ting free margin frayin g. Distal patell ar tendin opathy . Small Denis' s cyst. Electr onical ly Signed By: Terri Barriga ra, MD [email or web address] [facility] ([facility]) [address] [facility] [place], [address], 10/09/2024 10:36:23 Result Notes None recorded. Problems Name Problem SNOMED Code Status Onset Date Resolution Date Notes Provider Name and Address Organization Details Recorded Time Primary gonarthros is, bilateral 800846325 Active 2023 [facility] [place] - [facility] 4 15:36:04 Pain of joint of knee 9285393694 Active 2020 Problem Code: M25.569; Problem Code Type: ICD-10; Status: 'A'; Not Available [facility] 4 10:56:33 Problem Notes None recorded. Procedures Surgical History Date Name Laterality Status Provider Name and Address Organization Details Recorded Time 5 Gel-One Knee Injection completed Rabia Bush PA-C [address], [place], [address], [facility] - [facility] 10/30/2024 08:18:32 4 Knee Kenalog 40 1cc Injection, Bilateral completed Rabia Bush PA-C [address], [place], [address], [facility] 03/21/2024 13:02:31 Imaging Results Imaging Date Name Status LastModified by Organiz ation Details LastModified Time 11/07/2019 imaging/diagn ostic result completed Information not available 05/24/2024 23:38:07 11/07/2019 imaging/diagn ostic result completed Information not available 05/24/2024 23:38:07 08/21/2024 MRI, knee, w/o contrast completed [address] [facility] ([facility]) [address] [place], [address], 10/09/2024 10:35:54 08/21/2024 MRI, knee, w/o contrast completed [address] [facility] ([facility]) [address] [place], [address], 10/09/2024 10:36:23 Procedure Notes None recorded. Medical Equipment None Reported. Allergies Allergen ID Allergen Name Allergen Category Reaction Reaction Severity Criticality Documentation Date Start Date Code Code System Note Provider Name and Address Organization Details Recorded Time 745683 Non-stero idal anti-infl ammatory agent (product) medicatio n Not available Not available Not available 01/25/2024 42691 005 SNOMED CARLOS PEREIRA [facility] 4 13:56:26 838531 Ambien medicatio n Not available Not available Not available 10/29/2024 53572 5 RxNorm Rabia Bush PA-C [address], [place], [address], [facility] 10:26:17 Medications Name Sig Start Date Stop Date Status Note LastModified by Organization Details LastModified Time glucose 4-6 gm-mg chew 08/09 completed Not Available Not Available Not Available vitamin d3 50 mcg (2000 ut) caps 10/29 completed Not Available Not Available Not Available vitamin d3 25 mcg (1000 ut) tabs 08/09 completed Not Available Not Available Not Available vitamin d3 25 mcg (1000 ut) caps 08/09 completed Not Available Not Available Not Available freestyle lite test strips strp 10/29 completed Not Available Not Available Not Available freestyle lancets misc 10/29 completed Not Available Not Available Not Available quetiapine 25 mg tablet TAKE 1/2 TABLET BY MOUTH EVERY NIGHT AT BEDTIME FOR SLEEP 09/24 completed Not Available Not Available Not Available amoxicillin 500 mg capsule TAKE ONE CAPSULE BY MOUTH THREE TIMES DAILY 08/09 completed Not Available Not Available Not Available furosemide 40 mg tablet TAKE 1 TABLET BY MOUTH DAILY active Not Available Not Available No t Available atorvastati n 40 mg tablet TAKE 1 TABLET BY MOUTH DAILY active Not Available Not Available No t Available BD Alcohol Swabs USE DIRECTED ONCE DAILY FOR BLOOD SUGAR TESTING 08/09 completed Not Available Not Available Not Available acetic acid 2 % ear solution INSTILL 5 DROPS IN BOTH EARS THREE TIMES DAILY FOR 7 DAYS 10/29 completed Not Available Not Available Not Available clonidine HCl 0.1 mg tablet TAKE 1/2 TABLET BY MOUTH DAILY FOR ANXIETY active Not Available Not Available No t Available gabapentin 600 mg tablet TAKE 1 TABLET BY MOUTH FOUR TIMES DAILY active Not Available Not Available No t Available tizanidine 2 mg tablet TAKE 1 TABLET BY MOUTH EVERY 8 HOURS FOR 7 DAYS NEEDED CHEST PAIN / MUSCLE SPASM. MAY CAUSE DROWSINES S active Not Available Not Available No t [...] MOUTH FOUR TIMES DAILY BEFORE MEAL/BEDT BELEM 10/29 completed Not Available Not Available Not Available FreeStyle Lancets 28 gauge USE ONCE [...] completed Not Available Not Available Not Available peg-electro lyte solution 420 gram oral solution active Not Available Not Available Not Available tramadol 50 mg tablet TAKE 1 TABLET BY MOUTH EVERY 6 HOURS FOR 3 DAYS NEEDED FOR SEVERE PAIN 10/29 completed Not Available Not Available Not Available [...] 1 TABLET BY MOUTH THREE TIMES DAILY 10/29 completed Not Available Not Available Not Available esomeprazol e magnesium 40 mg capsule,del ayed release TAKE 1 CAPSULE BY MOUTH DAILY active Not Available Not Available No t Available lidocaine 5 % topical patch APPLY 1 PATCH TOPICALLY TO THE SKIN DAILY active Not Available Not Available No [...] TAKE 1 TABLET BY MOUTH TWICE DAILY 10/29 completed Not Available Not Available Not Available azelastine 137 mcg (0.1 %) nasal [...] Not Available Not Available No t Available Zovirax 5 % topical cream APPLY 1 APPLICATI ON TOPICALLY TO THE AFFECTED AREA FIVE TIMES DAILY FOR 5 DAYS 10/29 completed Not Available Not Available Not Available Premarin 0.625 mg/gram vaginal cream USE [...] 1 CAPSULE VIA INHALATIO N DEVICE DAILY TO PREVENT ASTHMA active Not Available Not Available No t Available mirtazapine 7.5 mg tablet TAKE 1 [...] tablet TAKE 1 TABLET BY MOUTH DAILY 10/29 completed Not Available Not Available Not Available Symbicort 160 mcg-4.5 mcg/actuati on HFA aerosol inhaler INHALE 2 PUFFS BY MOUTH TWICE DAILY 09/24 completed Not Available Not Available Not Available FreeStyle Lite Meter kit USE DIRECTED 01/24 completed Not Available Not Available Not Available FreeStyle Lite Strips USE ONCE A DAY active Not Available Not Available No t Available diclofenac 1 % topical gel APPLY 2 GRAM FOUR TIMES DAILY NEEDED FOR MUSCLE PAIN active Not Available Not Available No t Available cholecalcif anne (vitamin D3) 50 mcg (2,000 unit) capsule TAKE 1 CAPSULE BY MOUTH DAILY active Not Available Not Available No t Available Alvesco 160 mcg/actuati on aerosol inhaler INHALE 2 PUFFS BY MOUTH TWICE DAILY active Not Available Not Available No t Available oxycodone HCl-oxycodo ne-ASA [address] WHILE TAKING THIS MEDICATIO N 01/27 completed Statu s: 'Disc ontin ued'; Not Available Not Available Not Available estradiol 10 mcg vaginal tablet INSERT 1 TABLET VAGINALLY DAILY AT BEDTIME 10/29 completed Not Available Not Available Not Available ProChamber USED DIRECTED active Not Available [...] UNRESPONS ANNALEE PATIENT WITH LOW BLOOD SUGAR 10/29 completed Not Available Not Available Not Available FreeStyle Les 2 Sensor kit EVERY 14 DAILY USE S DIRECTED FOR TYPE 2 DIABETES MELLITUS active Not Available Not Available No t Available BinaxNOW COVID-19 Ag Self Test kit TEST DIRECTED TODAY 01/24 completed Not Available Not Available Not Available Vitals Date Recorded Body height Body mass index (BMI) Body weight Provider Name and Address Organization Details Last Updated DateTime 02/26/2024 165.1 cm 36.6 kg/m2 80137.32 g CARLOS NINOY [facility] 02/26/2024 08:24:07 Date Recorded Body height Provider Name an d Address Organization Details Last Updated DateTime 03/21/2024 165.1 cm [facility] 03/21/2024 10:37:16 Date Recorded Body height Body mass index (BMI) Body weight Provider Name and Address Organization Details Last Updated DateTime 08/09/2024 165.1 cm 40.4 kg/m2 184908.95 g [facility] 08/09/2024 15:01:41 Date Recorded Body height Body mass index (BMI) Body weight Provider Name and Address Organization Details Last Updated DateTime 09/24/2024 165.1 cm 40.4 kg/m2 365305.95 g Kodi Mae [facility] 09/24/2024 10:54:21 Date Recorded Body height Body mass index (BMI) Body weight Provider Name and Address Organization Details Last Updated DateTime 10/29/2024 165.1 cm 40.4 kg/m2 665198.95 g Rabia Bush PA-C [address], [address] 10/29/2024 10:25:55 Social History None recorded. Functional Status None recorded. Mental Status None recorded. Family History Nothing Reported. Medical History No medical history recorded. Gynecological HistoryNo gynecological history recorded. Obstetrics History GPAL:G 0 P 0 0 0 0 Past Encounters Encounter ID Performer Location Encounter Start Date Encounter Closed Date Diagnosis/Indication Diagnosis SNOMED-CT Code Diagnosis ICD10 Code Diagnosis Note [id number] LUCIANA Bernard [address] floor [address] [place] [address] 01/25/2024 13:46:20 02/16/2024 08:00:13 Pain of bilateral knee joints 1072572587 07261 M25.561 M25.023 [id number] Seth Lopez PA-C [place] [address] [place] [address] 02/26/2024 08:05:58 03/27/2024 10:20:41 Derangement of medial meniscus 873373859 M23.349 [id number] Rabia Bush PA-C [place] [address] [place] [address] 03/21/2024 09:46:33 04/17/2024 11:04:38 Bilateral osteoarthritis of knees 6137615838 81729 M17.0 [id number] Rabia Bush PA-C [place] [address] [place] [address] 08/09/2024 14:43:07 09/04/2024 14:48:08 Primary gonarthrosis, bilateral 938511443 M17.0 [id number] Rabia Bush PA-C [place] [address] [place] [address] 09/24/2024 10:47:14 10/09/2024 10:00:35 Primary gonarthrosis, bilateral 234085932 M17.0 [id number] Rabia Bush PA-C [facility] - [place] [address] [place] [address] 10/29/2024 10:03:42 11/07/2024 12:09:30 Primary gonarthrosis, bilateral 394614203 M17.0 Health Concerns Section Related Observation LastModified by Organization Detai ls LastModified Time None Recorded Concern Status LastModified by Organization Details LastModified Time None Recorded Advance Directives Directive None Recorded Payers Encounter Date Sequence Insurance Name Policy Number Policy Crowell Covered Member ID Crowell Member ID Guarantor Name 02/26/2024 1 [facility] (MEDICAID REPLACEMENT - HMO) [id number] Aimee Yanez [id number] Aimee Yanez 03/21/2024 1 [facility] (MEDICAID REPLACEMENT - HMO) [id number] Aimee Yanez [id number] Aimee Yanez 08/09/2024 1 [facility] (MEDICAID REPLACEMENT - HMO) [id number] Aimee Yanez [id number] Aimee Yanez 09/24/2024 1 [facility] (MEDICAID REPLACEMENT - HMO) [id number] Aimee Rootrio [id number] Aimee Yanez 10/29/2024 1 [facility] (MEDICAID REPLACEMENT - HMO) [id number] Aimee Yanez [id number] Aimee Yanez Notes Date Note Type Note Provider Name and Address Organization Details Recorded Time 02/26/2024 text/html Dx: This patient presents today for recheck of bilateral knee pain. she has had multiple cortisone injections in the past. Tried Tylenol and anti-inflammatories. Over the past visits she has had me she is doing physician prescribed exercise program. She has pain about the medial aspect of both of her knees. Most recent cortisone injections did not give her significant benefit. She does not have arthritis on her x-rays that would warrant total knee arthroplasties. She has episodes of catching and locking. Pain with standing and walking and twisting. Feels occasionally associated swollen.Past Medical/Surgical History/Meds/Allergie s reviewed and charted.Physical Exam:afebrile, vital signs stable, in no apparent distress, oriented to person/place/time.Gai t symmetricskin: intact, no erythema.examination of both of the patient's knees reveals tenderness to palpation medially. Positive Pedro's test bilaterally with 3 patient medial sided pain. Full range of motion. Mild effusion. No erythema or warmth. No parapatellar tenderness today.Impression:bila teral knee medial meniscal tears and a woman who failed conservative treatmentPlan: 1. I would recommend MRIs of her knees. She has failed conservative treatment with cortisone injections multiple times. Tylenol and anti-inflammatories have not given her benefit. Her symptoms are worse or the same as they were from my last visit. Over the last 3 months she has been taking anti-inflammatories and Tylenol. And since my last visit with her 1 month ago she has been doing a modified exercise program physician prescribed. Given this with her physical exam findings and her lack of benefit from conservative treatment would recommend the MRIs. She does not have arthritis that would warrant total knee arthroplasties and given her failure of conservative there are no other options for her at this point. Follow up with me after the MRIs are obtained.[facility] speech recognition solar lab technician software was used to create portions of this document. An attempt at proofreading has been made to minimize errors. Please call for corrections. Seth Lopez PA-C [address] [facility] [address], [place], [address], [facility] 02/26/2024 08:38:42 03/21/2024 text/html I am seeing the patient today under the supervision of Dr. Knox who was available but who did not see the patient. HPI: Patient presenting today with known osteoarthritis of {{the right knee the left knee bilateral knees*}}. Has been responding favorably to conservative treatment. Here today for a cortisone injection. Denies recent injury. No new systemic complaints. She is waiting to undergo a MRI of her bilateral knees. She would also like a prescription for hinged knee braces today. Past family, medical, social history and review of systems has been reviewed, updated, and is located in the patient? s chart. Examination: Examination of {{the right knee the left knee bilateral knees*}} reveals no effusion, erythema, or warmth. Injection site benign. Decreased range of motion. Point tender {{medial* lateral}} joint line. Calf is soft and nontender. 5/5 strength knee flexion and extension. Impression: {{Right Left Bilatera l*}} knee osteoarthritis Plan: The patient was thoroughly counseled today regarding their knee condition, its natural history, and conservative versus surgical treatment options. The patient is interested in receiving an injection with corticosteroid. {{The right knee was The left knee was Bilateral knees were*}} prepped sterilely and an injection was administered utilizing 40mg of Kenalog and 4cc of 0.25% Marcaine. The patient tolerated the procedure well. Post-injection precautions were discussed. Recommended avoiding strenuous activity over the next 24-48 hours. Encouraged elevation of the leg, applying ice, and taking over the counter medication as needed. The patient is aware that the injection can be repeated as often as every 3 months. She is awaiting to undergo a MRI for her bilateral knees. She will follow-up with her established provider for this. I have provided her with a prescription for bilateral knee hinged braces. All questions answered. The patient is ambulatory, but has weakness and/or instability of their extremity which requires stabilization from this semi-rigid/rigid orthosis to improve their function. Verbal and written instructions for the use and application of this item were given. Patient was instructed that should the brace result in increased pain, decreased sensation, increased swelling or an overall worsening of their medical condition, to please contact our office immediately. Rabia Bush PA-C [address] [place] [address] [address], [place], [address], [facility] - [facility] 03/21/2024 13:02:47 08/09/2024 text/html I am seeing the patient today under the supervision of Dr. Yu who was available but who did not see the patient. HPI: Aimee presents to the office today for a recheck of her bilateral knees. She typically sees one of my colleagues. She has had multiple cortisone injections which only provided her with temporary relief. For months she has been performing a physician directed home exercise program. She takes Tylenol and eqdg-vci-vgrphhg NSAIDs for her pain. She continues to note mechanical symptoms of catching and instability. My colleague had ordered a MRI of her bilateral knees back in February but the patient never heard as to whether or not the scans were covered. She would like for our office to resubmit for bilateral knee MRIs. PMH/PSH/MEDS/ALL/FMH/ SOC HX/ROS are reviewed in detail per my medical intake sheet. General Exam: Vital signs are as noted below Mental status: Alert and lucid. Normal insight, affect and grooming. 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 No spasticity [...] compressible. X-rays ordered, obtained and reviewed at [facility] previously include{{4 views of bilateral knees.*}} Images reveal mild to moderate osteoarthritis of the medial and patellofemoral compartments. No acute fracture or lesion. IMPRESSION: {{Right Left Bilatera l*}} knee osteoarthritis with concern for medial menisci tears PLAN: I will resubmit for bilateral knee MRIs in order to rule out medial menisci tears. This was previously submitted by one of my colleagues. The patient has failed conservative treatment in the form of rest, activity modification, oral medication, a physician directed home exercise program, and multiple cortisone injections. She feels as if her knee pain is impacting her quality of life. She will return to the office soon after her MRIs are performed. Treatment recommendations will be made at that time. All questions answered. Rabia Bush PA-C [address] [place] [address] [address], [place], [address], [facility] 08/13/2024 09:01:32 09/24/2024 text/html I am seeing the patient [...] home exercise program. She takes Tylenol and egcd-jku-qmyrssj NSAIDs for her pain. She indicates that she has been having issues with fluctuating glucose levels and has been seeing her horse wrangler. She recently had an MRI of her bilateral knees and is here to review the results. Currently the right knee is more painful than the left. PMH/PSH/MEDS/ALL/FMH/ SOC HX/ROS are reviewed in detail per my medical intake sheet. General Exam: Vital signs are as noted below Mental status: Alert and lucid. Normal insight, affect and grooming. 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 No spasticity [...] compressible. X-rays ordered, obtained and reviewed at [facility] previously include{{4 views of bilateral knees.*}} Images reveal mild to moderate osteoarthritis of the medial and patellofemoral compartments. No acute fracture or lesion. MRI of bilateral knees performed at [facility] on August 21, 2024 have been independently [...] All questions answered. Rabia Bush PA-C [address], [place], [address], [facility] - [facility] 09/24/2024 12:20:17 10/29/2024 text/html I am seeing the patient today under the supervision of Dr. Peters who was available but who did not see the patient. HPI: Aimee presents to the office today for a recheck of her bilateral knees. She has had multiple cortisone injections which only provided her with temporary relief. For months she has been performing a physician directed home exercise program. She takes Tylenol and rbzf-qkt-clijnxt NSAIDs for her pain. She indicates that she has been having issues with fluctuating glucose levels and has been seeing her horse wrangler. We reviewed the MRI of her knees at her last visit and elected to proceed with Gel One Injections. She is here to receive these injections today. PMH/PSH/MEDS/ALL/FMH/ SOC HX/ROS are reviewed in detail per my medical intake sheet. General Exam: Vital signs are as noted below Mental status: Alert and lucid. Normal insight, affect and grooming. 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 No spasticity [...] compressible. X-rays ordered, obtained and reviewed at [facility] previously include{{4 views of bilateral knees.*}} Images reveal mild to moderate osteoarthritis of the medial and patellofemoral compartments. No acute fracture or lesion. MRI of bilateral knees performed at [facility] on August 21, 2024 have been independently [...] free edge fraying left lateral meniscus PLAN: Nature of the diagnosis discussed with the patient today. Patient agreed to proceed with injections. Utilizing sterile technique, bilateral knees were injected with Gel One. Patient tolerated the procedure well. Postinjection precautions reviewed. Recommended ice and rest for the next 24-48 hours. Follow-up as symptoms dictate. Rabia Bush PA-C [address] [facility], [place], [address], [place] - [facility] 10/30/2024 08:18:54 OBGyn Episode No OBEpisode recorded.
--- OUTSIDE RECORDS SUMMARY | 2024-12-03 13:17 | XMS_ITS | Clinical Summary ---
Author Organization [facility] Address [address] [place] [address] Care Team Providers Care Top Loader Name Role Phone Unavailable Primary Care Provider [...] Encounters Date Type Department Care Team Description 10/24/2024 10:00 AM EST Office Visit [address] [phone] Katherine Frazier DDS Encounter for dental examination (Primary Dx) 09/13/2024 3:40 PM EST Office Visit [address] [phone] Leonel Sepulveda DDS Chronic apical periodontitis (Primary Dx); [place] 09/13/2024 Travel 09/11/2024 9:40 AM EST Office Visit [address] [phone] Camilla Verdin Encounter for dental examination (Primary [...] Sign Reading Time Taken Comments Blood Pressure 121/80 10/24/2024 9:54 AM EST Pulse 67 10/24/2024 9:54 AM EST Temperature - - Respiratory Rate - - Oxygen Saturation - - Inhaled Oxygen Concentration - - Weight - - Height - - Body Mass Index - - Plan of Treatment Upcoming Encounters Date Type Department Care Team (Late st Contact Info) Description 12/19/2024 10:20 AM EDT Office Visit [facility] [address] [place] [phone] Freddie Satnamchacho, DD [address] [place] [address] Health Maintenance Due Date Last Done Comments [...] 2010 Imm-Zoster, Recombinant (1 of 2) 12/10/2015 [id number] ( season) 2024 10/18/2023, 09/01/2021, 01/15/2021, Additional history exists Alcohol and Drug Screen 09/25/2024 Depression Annual Screen 09/25/2024 Dental BW 09/13/2025 09/11/2024 Dental Examination 09/13/2025 09/11/2024 Dental Perio Charting 09/13/2025 09/11/2024 Tobacco Screening 09/13/2025 09/13/2024 Hypertension Screening (#1) 10/24/2025 Dental FMX/Pano 09/13/2029 09/11/2024 Imm-DTaP/Tdap/Td (3 - Td or Tdap) 10/20/2032 023, 12/12/2012 Imm-Influenza Completed 07/24/2024, 09/26, 10/20/2022, Additional history exists Cervical Ablation/Cold-Knife Conization Discontinued Cervical Cryotherapy Discontinued Colposcopy Discontinued Endometrial Biopsy Discontinued Excision/Leep Discontinued HPV Genotyping Discontinued Vaginal Pap Discontinued Vulvoscopy Discontinued Procedures Procedure Name Priority Date/Time Associated Diagnosis Comments OFFICE VISIT OBSERVATION NO OTHER SRVC PERFORMED Routine 10/24/2024 10:00 AM EST Encounter for dental examination 31 EXTRACTION ERU TOOTH RQR REMV BONE [...] EST from Last 3 Months Insurance [facility]
--- OUTSIDE RECORDS SUMMARY | 2024-12-03 13:17 | XMS_ITS | Encounter Summary ---
Author Organization [place] [address] Care Team Providers Care Button Maker Name Role Phone Rick Hatch MD Primary Care Provider Encounter Details Date Type Department Care Team (Late Contact Info) Description 07/05/2024 4:24 PM EDT Hospital Encounter TH HISTORIC ENCOUNTERS EASTERN CONVERSION ONLY Shazia Iverson MD [address] [place] [address] Social History Tobacco Use Types Packs/Day Years [...] on file Sexual Orientation Not on file documented as of this encounter Plan of Treatment Upcoming Encounters Date Type Department Care Team (Late Contact Info) Description 02/11/2025 8:30 AM EDT Consult Bariatric Surgery - [place] [address] [facility] [address] [place] [phone] Alvino Torres MD [address] [address] documented as of this encounter Visit Diagnoses Not on filedocumented in this encounter Care Teams Button Maker Relationship Specialty Start Date End Date Rick Hatch MD [address] [place] [phone] PCP - General 06/04/10 documented as of this encounter
== END 2024-12-03 11:34 | disposition home or self-care (01) ==
LOC: HO.HBS 10:52
PROVIDERS: PCP Family Medicine; Visit Provider Physician Assistant Surgical
DX: R11.10 Vomiting, unspecified (principal); E66.812 Obesity, class 2; Z68.39 Body mass index [BMI] 39.0-39.9, adult; Z98.84 Bariatric surgery status
CPT/HCPCS: 99214; G2211

== ENCOUNTER → 2024-12-03 10:51 | Outpatient (BNVA) | payer OTHER, SELFPAY | PROVIDERS: PCP Family Medicine; Visit Provider Physician Assistant Surgical | DX: Z48.815 Encounter for surgical aftercare following surgery on the digestive system (principal); R11.10 Vomiting, unspecified; E66.9 Obesity, unspecified; Z98.84 Bariatric surgery status; Z68.39 Body mass index [BMI] 39.0-39.9, adult | CPT/HCPCS: 99212 ==

== ENCOUNTER 2024-12-27 14:06 | Day surgery (SDC) | payer OTHER, SELFPAY ==
--- NOTE | 2024-12-23 12:31 | P.CONAN_ITS ---
Documented by User: Carole Manley NP 12/26/24 11:40 HPI - Anesthesia Eval Consult details Narrative: 59yo F for Upper Endoscopy s/p elective right and left heart catheterization, followed by ICE guided PFO closure 11/25/24 at [facility] - stable at f/u cardiology office visit Janejacinda for hx PE PMFSH Active Problems Active Problems: All Active Problems Vomiting (Acute) History of Shira-en-Y gastric bypass (Acute) History of sleeve gastrectomy (Acute) BMI 33.0-33.9,adult (Acute) GERD (gastroesophageal reflux disease) (Acute) BMI 34.0-34.9,adult (Acute) Obesity (Acute) Past Medical History Medical History (Updated 12/23/24 @ 12:38 by Carole Manley NP) TIA (transient ischemic attack) PFO (patent foramen ovale) Bipolar disorder Pulmonary embolism GERD (gastroesophageal reflux disease) History of herniated intervertebral disc Family History Family History Father Stroke Mother Dementia Alzheimer disease Cancer Sister Dementia Asthma Epilepsia Sister Lupus Sister Cancer Sister No problems noted. Sister Acute rheumatic arthritis Fibromyalgia Brother No problems noted. Brother Back problem Hypertension Acute depression Surgical History Surgical History (Updated 12/27/24 @ 14:20 by Sarita Ruvalcaba RN) History of carpal tunnel release S/P patent foramen ovale closure (~11/2024) Obesity History of abdominoplasty History of bypass gastroenterostomy History of removal of laparoscopic gastric banding device History of knee surgery History of laparoscopic appendectomy History of bilateral tubal ligation Hx of laparoscopic gastric banding History of bilateral breast reduction surgery Social History Social History Alcohol intake: never Patient Tobacco Use Status: Never used Tobacco Meds Allergies Allergy/AdvReac Type Severity Reaction Status Date / Time bupropion [BUPROPION] Allergy Unknown UNKNOWN Verified 12/27/24 14:18 ibuprofen Allergy Unknown Stomach Verified 12/27/24 14:18 pain NSAIDS (Non-Steroidal Allergy Unknown GI UPSET Verified 12/27/24 14:18 Anti-Inflamma [NSAIDS (NON-STEROIDAL ANTI-INFLAMMA] BuPROPion HCl Allergy Unknown Unknown Uncoded 12/27/24 14:18 Home Medications ?Medication ?Instructions ?Recorded ?Confirmed ?Last Taken ?Type albuterol sulfate 90 mcg/actuation 2 puff inhalation Q6H PRN 09/16/20 12/03/24 Unknown History aerosol inhaler (ProAir HFA) aripiprazole 10 mg tablet 10 mg PO BEDTIME 09/16/20 12/03/24 Unknown History clonidine 0.1 mg/24 hr weekly 1 patch transdermal QWEEK 09/16/20 12/03/24 Unknown History transdermal patch duloxetine 60 mg capsule,delayed 60 mg PO DAILY 09/16/20 12/03/24 Unknown History release fluticasone furoate 50 inhalation 09/16/20 12/03/24 Unknown History mcg/actuation blister powder for inhalation gabapentin 300 mg capsule 300 mg PO BEDTIME 09/16/20 12/03/24 Unknown History hydroxyzine HCl 25 mg tablet 25 mg PO BID PRN 09/16/20 12/03/24 Unknown History montelukast 10 mg tablet 10 mg PO BEDTIME 09/16/20 12/03/24 Unknown History (Singulair) dmnfbhdq-chdyrmrz-imzy 45 mg-folic cap PO 09/16/20 12/03/24 Unknown History acid 800 mcg-vit K 120 mcg capsule (Bariatric Multivitamins) apixaban 2.5 mg tablet (Eliquis) 2.5 mg PO BID 12/23/24 Unknown History dapagliflozin propanediol 10 mg 10 mg PO DAILY 12/23/24 Unknown History tablet (Farxiga) Exam Pertinent Lab Results Pertinent Lab Results: Laboratory Tests 10/22/24 09:31 WBC 7.5 Hgb 13.1 Hct 41.1 Plt Count 286 Sodium 139 Potassium 3.7 Chloride 104 Carbon Dioxide 28 BUN 14 Creatinine 0.82 Narrative Narrative: EKG 11/2024 12:23:51 Ventricular Rate: 64 BPM Atrial Rate: 64 BPM P-R Interval: 170 ms QRS Duration: 88 ms Q-T Interval: 424 ms QTC Calculation(Bazett): 437 ms P [place]: 24 degrees R [place]: 10 degrees T [place]: 22 degrees Normal sinus rhythm Inferior infarct , age undetermined Abnormal ECG When compared with ECG of 25-Nov-2024 06:23, Right bundle branch block is no longer Present Confirmed ? Signed By: Romeo Fink MD Stress Test No qualifying data available. EchoEchocardiogram - Complete ? 07:49:16 Summary The left ventricle is normal in size and wall thickness. Overall left ventricular systolic function is normal. Quantitative LVEF 60% (biplane Stovall). There are no significant LV regional wall motion abnormalities. Normal diastolic function. Right ventricular systolic function is grossly normal. There is a PFO closure device in place. There is no evidence of residual interatrial flow on technically difficult color Doppler images. No significant valve dysfunction. Normal CVP estimate. Unable to estimate PASP. There is no significant pericardial effusion. Comparison Comparison is made to the study of October 11, 2024. Interval PFO closure device. Signature ? Signed By: Ori Apodaca MD Cardiac Cath ProcedureCardiac Cath Procedure ? 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 Patent foramen ovale-massive shunting by echo Right femoral artery, 6 Croatian-closed with Perclose Right femoral vein, 12 Croatian-closed with Perclose Right femoral vein, 10 Croatian-closed with Perclose Right heart catheterization Coronary angiography with left heart catheterization Intracardiac echo Patent foramen ovale closure with a Hoople 32 mm septal occluder HEMODYNAMICS LA 18 RA 10 PA 33/21 (25) WP 18 CO/CI (Constance) 7.3/3.4 LVEDP 18, no pullback gradient across aortic valve SHUNT RUN AO 92 SVC 63.8 IVC 69.5 RA 63.4 PA 62.4 PV 91.1 QP/QS 0.91 CORONARY ANGIOGRAPHY Right dominant coronary circulation Angiographically normal coronary arteries INTRACARDIAC ECHO Preclosure Hypermobility of the interatrial septum Using stretched PFO technique, there was an obvious waist on the balloon at 10.4 mm by echo, 11 mm by fluoroscopy Post procedure Status post closure with a Hoople 32 mm septal occluder Adequate capture both sides of the septum No residual flow across interatrial septum by color Doppler or bubble study The patient presents with NYHA class III/IV dyspnea. She does note evidence of mild hypoxia with O2 sats in the 90% at home. She has been seen by pulmonary and her asthma has been reasonably managed. She has not had any other explanation for her severe dyspnea. She has a known patent foramen ovale with large shunt. We contemplate the possibility of orthodeoxia/platypnea syndrome. Right heart catheterization shows mild elevation of left heart filling pressures and preserved cardiac output. The pulmonary pressure is normal. Coronary angiography shows angiographically normal coronary arteries. We did not think that the mild elevation in left heart filling pressures explain the patient?s symptoms. We performed PFO closure using a stretched PFO technique. We were concerned about hypermobility of the septum and we did perform balloon sizing. On balloon sizing, the waist of the balloon looked more likely an atrial septal defect rather than a PFO. We decided to use an ASD occluder. We were measuring 11 to 12 mm by echo/fluoroscopy; given the hypermobility of septum, we size for a 15 to 16 mm defect. We placed a Hoople 32 mm septal occluder and we are satisfied with result at the end. Interventional Recommendations 1. Resume Eliquis tonight 2. Check echo in the morning 3. Check echo with bubble study in 3 months 4. Follow-up with me after echo with bubble 5. If continued dyspnea, we can consider treatment for diastolic dysfunction Assessment and Plan Assessment Anesthesia Assessment: Chart Reviewed Documented by User: Beatriz Oneill MD 12/27/24 14:24 [facility] Past Medical History Medical History (Updated 12/23/24 @ 12:38 by Carole Manley NP) TIA (transient ischemic attack) PFO (patent foramen ovale) Bipolar disorder Pulmonary embolism GERD (gastroesophageal reflux disease) History of herniated intervertebral disc Family History Family History Father Stroke Mother Dementia Alzheimer disease Cancer Sister Dementia Asthma Epilepsia Sister Lupus Sister Cancer Sister No problems noted. Sister Acute rheumatic arthritis Fibromyalgia Brother No problems noted. Brother Back problem Hypertension Acute depression Family history of problems with anesthesia: No Surgical History Surgical History (Updated 12/27/24 @ 14:20 by Sarita Ruvalcaba RN) History of carpal tunnel release S/P patent foramen ovale closure (~11/2024) Obesity History of abdominoplasty History of bypass gastroenterostomy History of removal of laparoscopic gastric banding device History of knee surgery History of laparoscopic appendectomy History of bilateral tubal ligation Hx of laparoscopic gastric banding History of bilateral breast reduction surgery History of Problems with Anesthesia: No Social History Social History Alcohol intake: never Patient Tobacco Use Status: Never used Tobacco Meds Allergies Allergy/AdvReac Type Severity Reaction Status Date / Time bupropion [BUPROPION] Allergy Unknown UNKNOWN Verified 12/27/24 14:18 ibuprofen Allergy Unknown Stomach Verified 12/27/24 14:18 pain NSAIDS (Non-Steroidal Allergy Unknown GI UPSET Verified 12/27/24 14:18 Anti-Inflamma [NSAIDS (NON-STEROIDAL ANTI-INFLAMMA] BuPROPion HCl Allergy Unknown Unknown Uncoded 12/27/24 14:18 Home Medications ?Medication ?Instructions ?Recorded ?Confirmed ?Last Taken ?Type albuterol sulfate 90 mcg/actuation 2 puff inhalation Q6H PRN 09/16/20 12/03/24 Unknown History aerosol inhaler (ProAir HFA) aripiprazole 10 mg tablet 10 mg PO BEDTIME 09/16/20 12/03/24 Unknown History clonidine 0.1 mg/24 hr weekly 1 patch transdermal QWEEK 09/16/20 12/03/24 Unknown History transdermal patch duloxetine 60 mg capsule,delayed 60 mg PO DAILY 09/16/20 12/03/24 Unknown History release fluticasone furoate 50 inhalation 09/16/20 12/03/24 Unknown History mcg/actuation blister powder for inhalation gabapentin 300 mg capsule 300 mg PO BEDTIME 09/16/20 12/03/24 Unknown History hydroxyzine HCl 25 mg tablet 25 mg PO BID PRN 09/16/20 12/03/24 Unknown History montelukast 10 mg tablet 10 mg PO BEDTIME 09/16/20 12/03/24 Unknown History (Singulair) kvowavrz-puqgprsc-wkpr 45 mg-folic cap PO 09/16/20 12/03/24 Unknown History acid 800 mcg-vit K 120 mcg capsule (Bariatric Multivitamins) apixaban 2.5 mg tablet (Eliquis) 2.5 mg PO BID 12/23/24 Unknown History dapagliflozin propanediol 10 mg 10 mg PO DAILY 12/23/24 Unknown History tablet (Farxiga) Exam Airway Mallampati Class: II TM Dist: >3cm Neck ROM: Full Partial: Upper Heart: rrr Lungs: cta Assessment and Plan Assessment Anesthesia Assessment: Anesthesia Plan Discussed Final Anesthetic Review Family History of Problems with Anesthesia: No History of Problems with Anesthesia: No NPO: Yes ASA Class: III Final Preanesthetic Review: No Changes in Pt Med Stat, Meds/Allgs Chart Reviewed and Consent Obtained/Reviewed Patient Risk: Intermediate Procedure Risk: Intermediate Anesthetic Plan Anesthetic Plan: MAC: Disposition: Standard PACU
[2024-12-27 14:24] VITALS: BMI 41.5
--- NOTE | 2024-12-27 14:27 | PC.NURSE ---
Patient last took eliquis PO today. Dr. Em made aware. Okay to proceed with procedure.
[2024-12-27 14:29] VITALS: BP 124/71; PULSE 69; RESP 16; TEMP 36.4; O2SAT 98
[2024-12-27] MEDS: Lactated Ringers 1,000 ML 80 ML IVCONT (14:39)
[2024-12-27 14:40] LABS: Glucose, Whole Blood 88 mg/dL (60-115)
--- NOTE | 2024-12-27 14:45 | P.HPSUR_ITS ---
Pre-Procedural Eval Section A - 24 Hr Update-Section A only Date of Service: 12/27/24 The patient is an INPATIENT: No The patient has been examined within 24 hours of the surgical procedure. The History & Physical has been completed within 30 days and I have reviewed it.: Yes Section B - Complete if H&P > 30 days Chief Complaint: Bariatric surgery status Details of Present Illness: UGI bleeding Relevant Family History (Specify if Yes): No Relevant Social History: None Present Medications: None Medical History: No relevant PMH History of Previous Operations: Relevant previous surgery/procedure and date(s) (Lap band ,lap conversion to Shira-en-Y gastric bypass) Allergies: Allergies Allergy/AdvReac Type Severity Reaction Status Date / Time bupropion [BUPROPION] Allergy Unknown UNKNOWN Verified 12/27/24 14:18 ibuprofen Allergy Unknown Stomach Verified 12/27/24 14:18 pain NSAIDS (Non-Steroidal Allergy Unknown GI UPSET Verified 12/27/24 14:18 Anti-Inflamma [NSAIDS (NON-STEROIDAL ANTI-INFLAMMA] BuPROPion HCl Allergy Unknown Unknown Uncoded 12/27/24 14:18 Review of Systems Sugical H&P ROS: Negative: Constitution, Cardiovascular, Respiratory, Neurolog ical, Psychiatric, Hem-Onc, Allergic/Immunologic, Gastrointestinal, Genitourinary, Musculoskeletal, Integumentary, Endocrine and Eyes/Ears/Nose/Throat Exam Surgical H&P Exam: Normal: HEENT, Normal: Heart, Normal: Lungs, Normal: Extremities, Normal: Abdomen, Normal: Skin and Normal: Neurological Plan Diagnosis/Plan: Unchanged (EGD to assess the cause of the GI bleeding. Risks of bleeding and perforation were discussed with the patient and she is in agreement with the plan.) I have reviewed the history and physical and performed a pertinent physical examination on my patient. No changes have occurred unless specified. Time Spent With Patient Time: Total time managing care of this patient today ____ minutes.
--- NOTE | 2024-12-27 14:52 | P.BOP_ITS ---
Brief Operative Note Date of Service: 12/27/24 Pre-op diagnosis: UGI bleeding and hematemesis Post-op diagnosis: same Procedure: PROCEDURE DATE: 12/27/2024 PREOPERATIVE DIAGNOSIS: GERD, s/p gastric bypass POSTOPERATIVE DIAGNOSIS: ?Same as above. Normal post-bypass endoscopy PROCEDURE: [id number]-[id number] with biopsies Surgeon: ?Isrrael Weston M.D.. Ph.D. Cryptologic Technician: ?None ? Anesthesia: IV sedation Estimated blood loss: ?Minimal FINDINGS AND PROCEDURE: ? OPERATIVE INDICATIONS: ?The patient is a 59 year old female known to me who underwent a lap band removal and conversion to laparoscopic gastric bypass elsewhere. The patient is not compliant with follow-up or diet instructions. As a result she has gained all the weight back and now she is complaining of several episodes of upper GI bleeding and hematemesis This is aggravated by the need to be on anticoagulation with Eliquis which cannot be stopped based on her District Manager In Training's recommendations. Based on this information I recommended an upper endoscopy to evaluate the patient's symptoms.? Risks and complications of the surgery were discussed with the patient in advance particularly the possibility of perforation or bleeding that may require surgical intervention. The patient understood the risks and was in agreement with the plan. ? PROCEDURE: After informed consent was obtained by the patient, the patient was ?transferred to the Operating Room and was placed in the supine position.? After successful induction of IV sedation, a mouth block was placed and the patient was placed in the left lateral decubitus position. An upper endoscopy was performed next, the oropharynx and esophagus appeared within the normal limits. There was no hiatal hernia.? The z-line was smooth. The small pouch was entered, appeared to be of normal size. There was no gastritis and the gastrojejunostomy was patent. There was no anastomotic ulcer.? At that point the scope was advanced into the proximal small intestine (proximal Shira limb) up to 50cm from incisors which appeared to be normal as well. There was no evidence of any recent bleeding anywhere. The Shira limb and the pouch were decompressed and the scope was withdrawn from the patient's mouth. Biopsies were not performed since the patient is on Eliquis and could not be discontinued per the District Manager In Training's recommendations. The patient was awaken and was transferred in stable condition to the Recovery Room for further care. I was present and performed all steps of the procedure. There were no residents to assist with this case. Isrrael Weston M.D., Ph.D. Surgeon: Morgan Weston MD Anesthesia: MAC Was an Cryptologic Technician used for this Procedure?: No Estimated blood loss (mL): 0 IV fluids (mL): 400 Urine output (mL): 0 Pathology: none sent Condition: stable Disposition: PACU
[2024-12-27 15:08] VITALS: BP 100/55; PULSE 67; RESP 16; TEMP 36.4; O2SAT 97
[2024-12-27 15:23] VITALS: BP 102/53; PULSE 56; RESP 18; O2SAT 97
[2024-12-27 15:38] VITALS: BP 101/58; PULSE 56; RESP 16; TEMP 36.1; O2SAT 98
== END 2024-12-27 16:05 | disposition home or self-care (01) ==
PROVIDERS: PCP Family Medicine; Visit Provider Surgery
PROC: 0DJ08ZZ Inspection of Upper Intestinal Tract, Via Natural or Artificial Opening Endoscopic (ICD-10-PCS; CPT 43235; principal; 2024-12-27 15:20)
DX: K92.2 Gastrointestinal hemorrhage, unspecified (principal); K92.0 Hematemesis; R11.10 Vomiting, unspecified; Z98.84 Bariatric surgery status; K21.9 Gastro-esophageal reflux disease without esophagitis; E66.9 Obesity, unspecified; Z68.39 Body mass index [BMI] 39.0-39.9, adult; R06.02 Shortness of breath; Z87.74 Personal history of (corrected) congenital malformations of heart and circulatory system; Z87.19 Personal history of other diseases of the digestive system; Z79.01 Long term (current) use of anticoagulants; Z88.6 Allergy status to analgesic agent; Z88.8 Allergy status to other drugs, medicaments and biological substances; Z79.899 Other long term (current) drug therapy; Z98.890 Other specified postprocedural states
CPT/HCPCS: 43235; 82947; J2003; J2704

== ENCOUNTER → 2024-12-27 14:06 | Outpatient (BNV) | payer OTHER, SELFPAY | PROVIDERS: PCP Family Medicine; Visit Provider Surgery | DX: K21.9 Gastro-esophageal reflux disease without esophagitis (principal); Z98.84 Bariatric surgery status | CPT/HCPCS: 43239 ==